=== PATIENT | female | born 1965 | race Caucasian/White ===

== ENCOUNTER → 2016-10-02 | Outpatient (CLI) | payer OTHER ==
[~2016-10-02] MED LIST: ALBU1AER9 INH; BCPILLS PO; CIPR-255 PO; ELET40TA PO; METR500T PO; MULT-506 PO; OXYC1TAB3 PO; vit D PO
--- NOTE | 2016-10-03 05:42 | PAP/PSG TECHNICIAN REPORT ---
[facility] Mechanic Driver Polysomnogram Report Study name: None Report date: 10/03/2016 Study date: 10/02/2016 Referring Physician: Patience Peterson M.D. Name: KRISTEN GUSTAFSON Interpreting Physician: Ernesto Peterson M.D. Date of : 1965 Mechanic Driver: YOMI Bueno. Sex: Female Age: 51 StudyType: PSG Weight: 271 lbs Height: 51 years, Height 4' 11" Neck Circum:17inches BMI: 54.73 Medications: No list provided Patient History Study started on room air with ETCO2 monitoring in room #8. 51 yr old female here tonight for a possible split psg. She complains about loud snoring and witnessed apnea. She has HTN and heartburn. Neck circ= 17inches. Parameters Monitored NPSG: E1-M2, E2-M1, Fp1-M2, Fp2-M1, F3-M2, F4-M2, F4-M1, C3-M2, C4-M2, C4-M1, O1-M2, O2-M2, O2-M1, T3-M2, T4-M1, P3-M2, P4-M1, CHIN1, CHIN2, HR, EKG, Legs, PFLOW, SNOR, FLOW, CFLOW, Tidal Volume, THOR, ABDO, SpO2, PLTH, CPRESS, ETCO2 Wave, ETCO2, pH Sleep Architecture Sleep Stages Time at Lights Off 10:24:04 PM STAGES Time (min.) TST (%) Time at Lights On 5:21:34 AM Wake 23.0 -- Total Recording Time (TRT) 417.50 min. N1 20.5 5 Total Sleep Period (TSP) 411.5 min. N2 266.5 68 Total Sleep Time (TST) 394.5min. N3 57.0 14 Awake Time 23.0 min. REM 50.5 13 Wake after Sleep Onset 17.0 min. Sleep Efficiency (SE) 94 % Sleep Onset Latency (JONAS) 6.0 min. Number of Stage 1 Shifts None Awakenings 12 Stage Changes 70 Number of REM periods 8 REM 50.5 13 REM Latency 111.0 min. NREM 344.0 87 Body Position Analysis Supine Right Left Side Prone Vertical Total Sleep Time (min.) 37.6 242.2 68.5 310.68 53.3 0.0 Total Sleep Time (%) 9% 61% 17% 79 13% N/A% Total Sleep Time REM (min.) 0.0 50.5 0.0 None 0.0 0.0 Total Sleep Time NREM (min.) 34.0 191.7 68.5 None 49.8 0.0 Intermittent Wake (min.) 3.6 13.9 2.0 None 3.5 0.0 Total Sleep Period (%) 9% None None None None None Arousals Myoclonus (PLM) * Events Count Index Events Count Index Spontaneous 15 2 Events Awake (PLMW) 28 73.0 Respiratory 4 0.8 Events Asleep w/ Arousal (PLMA) 3 0.5 PLM 3 0 Events Asleep w/o Arousal (PLMS) 152 23.1 Snoring 0 0 Total Asleep 155 23.6 Total 22 3 Total 183 26 Respiratory Analysis * CA OA MA CH H RERA Total Count 0 53 0 0 163 1 216 Index 0.0 8.1 0.0 0 24.8 0 33.0 Mean Duration 0.0 28.7 0.0 0.00 23.3 24.2 24.6 Longest Duration 0.0 65.6 0.0 0.00 0.0 24.2 65.6 Respiratory Event Summary Total Supine ~Supine Right Left Prone REM NREM Apneas Count 53 0 53 3 50 0 3 50 Index 8.1 0 9 0.7 43.8 0 4 9 Hypopneas (4% Desat) Count 163 67 96 65 31 0 20 143 Index 24.8 118.2 16 16.1 27.2 0.0 23.8 24.9 Apneas & All Hypopneas Count 216 67 149 68 81 0 23 193 Index 32.9 118 25 17 71 0 27.3 33.7 Respiratory Events (Chainstitch Elastic Attacher+All Hyp+RERA) Count 216 67 150 69 81 0 23 193 Index 33.0 118 25 17.1 70.9 0.0 27.3 33.8 Respiratory Related Arousal Count 4 67 5 4 1 0 3 2 Index 0.8 0 1 1 1 0 4 0 Snoring Analysis Supine Right Left Prone REM NREM Total Snore duration 5.1 min Snores count 21 183 105 3 10 302 312 Snore mean duration 1.0 Sec Snores index 37 45 92 4 11.9 52.7 47.5 TST with snoring (%) 1.3% SpO2 Analysis Total REM NREM Awake <50% 0.0 min. 0.0 min. 0.0 min. 0.0 min. 51 - 60% 0.0 min. 0.0 min. 0.0 min. 0.0 min. 61 - 70% 0.0 min. 0.0 min. 0.0 min. 0.0 min. 71 - 80% 2.8 min. 1.7 min. 0.5 min. 0.6 min. 81 - 90% 358.5 min. 45.6 min. 301.5 min. 11.4 min. 91 - 100% 55.3 min. 3.2 min. 41.6 min. 10.5 min. Average 88 86 88 90 Minimum SpO2 76 76 78 80 Desaturation Event Index 28.7 27.3 30.0 13.0 # Desat. Events below 89% 192 23 169 0 Time(%) with Saturation below 89% 53.0 9.2 42.9 0.8 Time(min.) with Saturation below 89% 220.7 38.5 178.6 3.5 Heart Rate Analysis End Tidal CO2 Analysis Min (bpm) Max (bpm) Average (bpm) TSP (mins) % of TSP Awake 56 94 76 Above 55 mmHg 0.0 0.0 NREM 51 96 68 50-55 mmHg 19.5 4.9 REM 49 89 66 45-50 mmHg 188.5 47.8 Overall 49 96 68 40-45 mmHg 94.4 23.9 35-40 mmHg 29.9 7.6 30-35 mmHg 21.2 5.4 Average ETCO2 0.1 Supplemental O2 Values Minimum O2 level: None Value Start Time End Time Mechanic Driver Comments Mrs. Gustafson slept in the right, left, supine and prone positions. No cardiac arrhythmia noted. Some leg movements noted. No bruxism noted. Snoring was noted and scored as a 2 on a scale of 1 through 5. (0=no snoring, 5=snoring loud enough to be heard through a closed door or down the lazo way). She did not use the restroom during the night. She stated that she slept about the same as usual. The final report will be interpreted and signed by a sleep physician. The completed physician report will then be placed in the patient medical record. Therapy (cm H2O) 0 TIB (min.) 417.5 TST (min.) 394.5 Sleep Onset (min.) 6.0 REM Onset From Sleep (min.) 111.0 Sleep Efficiency % 94 Wakefulness (%) 6 Wakefulness (min.) 23.0 NREM 1 (%) 5 NREM 1 (min.) 20.5 NREM 2 (%) 68 NREM 2 (min.) 266.5 NREM 3 (%) 14 NREM 3 (min.) 57.0 REM (%) 13 REM (min.) 50.5 # Arousals 22 Arousal Index 3 # Snore 312 Snore Index 47.5 AHI 32.9 AHI Supine 118 AHI Non-Supine 25 NREM AHI 33.7 REM AHI 27.3 RDI 33.0 # Obstructive Apnea 53 # Central Apnea 0 # Mixed Apnea 0 # Hypopneas 163 RERAs 1 Total Respiratory Events 218 Time Below SpO2 89% (min.) 217.1 Mean NREM SpO2 (%) 88 Mean REM SpO2 (%) 86 Mean Sleep SpO2 (%) 88 Min NREM SpO2 (%) 78 Min REM SpO2 (%) 76 Position Supine (min.) 37.6 Position Non-supine (min.) 360.5 LM Index Sleep 23.6 LM Index NREM 26.3 LM Index REM 4.8 Mean Heart Rate (bpm) 68 Min Heart Rate (bpm) 49
--- NOTE | 2016-10-09 06:48 | POLYSOMNOGRAPH REPORT ---
REFERRING PERSON: Dr. Librado Peterson. PUNCHBOARD FILLING MACHINE OPERATOR: Claudia Ahmadi. Ms. Hardy is a 51-year-old female sent for a possible split-night sleep study. She complains of loud snoring and witnessed apneas. She has a history of acid reflux and hypertension. Her [place] Sleepiness Scale score on the evening of this study is not recorded. Her BMI is 54.73. Following the technical and digital specifications of the [place] [employer] (AASM), a standard diagnostic polysomnogram was performed, monitoring EEG, EOG, EMG (chin and leg deviations), oxygen saturation, body position, digital video, respiratory effort and airflow. The sleep Stage and Event scoring was based on the AASM Manual for the Scoring of Sleep and Associated Events, 2007 edition. Apneas are defined as a drop in the peak thermal sensor excursion by >90% of baseline for at least 10 seconds. Hypopneas were scored using the 4% oxygen desaturation rule (4A-Medicare) and a decrease in the nasal pressure excursions by >30% of baseline for at least 10 seconds. Respiratory effort-related arousal (RERA) is defined as a sequence of breaths lasting at least 10 seconds characterized by increasing respiratory effort or flattening of the nasal pressure waveform leading to an arousal from sleep when the sequence of breaths does not meet criteria for an apnea or hypopnea. Apnea Hypopnea index (AHI) is defined as the number of apneas and hypopneas occurring in an hour of sleep. Respiratory disturbance index (RDI) is defined as the number of apneas, hypopneas, and RERAs occurring in an hour of sleep. Ms. Hardy's total sleep period time was 411.5 minutes. Total sleep time was 394.5 minutes. Sleep efficiency was 94%. Latency to sleep onset was 6 minutes with wake after sleep onset of 17 minutes. Total non-REM sleep time was 344 minutes. She spent 5% of that time in N1 sleep, 68% in N2 sleep, and 14% in N3 sleep. REM latency was 111 minutes. Total REM sleep time was 50.5 minutes or 13% of total sleep time. There were 22 cortical arousals from sleep. 15 of these arousals were spontaneous, 4 were due to respiratory events, and 3 were due to periodic limb movements of sleep. There were 155 periodic limb movements noted on this test. Limb movement index was 23.6. Limb movement with arousal index was 0.5. There were no central, 53 obstructive, and no mixed apneas on this test. There were 163 hypopneas and 1 RERA. Apnea-hypopnea index was elevated at 32.9, consistent with severe sleep apnea. 312 snoring events were recorded. Total sleep time with snoring was 1.3%. This patient was hypoxic most of recording time. While she was awake, her baseline oxygen saturation appeared to be around 91% but the average saturation for this study was 88%. There were desaturations with respiratory events of 76%. Saturations were less than 89 for 220.7 minutes of recording time. This is significant nocturnal hypoxemia. There was no cardiac ectopy noted on this study. Heart rates ranged from a low of 49 beats per minute to a high of 96 beats per minute on this study. End-tidal CO2 was recorded on this test. End-tidal CO2s were between 50 and 55 mmHg for 4.9% of total sleep period time, between 45 and 50 mmHg for 47.8%, between 40 and 45 mmHg for 23.9%, between 35 and 40 mmHg for 7.6% of total sleep period time, and then it was between 30 and 35 mmHg for 5.4% of total sleep period time. The remaining end-tidal CO2 data appears to be lost. IMPRESSION AND PLAN: A 51-year-old female with evidence of severe sleep apnea and severe nocturnal hypoxemia on this sleep study. This patient would likely benefit from positive airway pressure therapy and should return to sleep lab for a full night titration. Based on those results, she can be started on equipment at home and a download reviewed from her device in 1 month both to check compliance as well as AHI. CPAP titration study will also ensure that her hypoxemia resolves with CPAP alone.
== END | disposition home or self-care (01) ==
LOC: C.NEUR 21:00
PROVIDERS: ATTEND Family Medicine
DX: G47.33 Obstructive sleep apnea (adult) (pediatric) (principal); G47.36 Sleep related hypoventilation in conditions classified elsewhere

== ENCOUNTER → 2016-12-15 | Outpatient (CLI) | payer OTHER ==
--- NOTE | 2016-12-16 06:16 | PAP/PSG TECHNICIAN REPORT ---
[facility] Senior Chemist Polysomnogram Report Study name: None Report date: 12/16/2016 Study date: 12/15/2016 Referring Physician: Patience Peterson M.D. Name: KRISTEN GUSTAFSON Interpreting Physician: Ernesto Peterson M.D. Date of : 1965 Senior Chemist: Jeannie Carpenter RPS. Sex: Female Age: 51 Study Type: PSG PAP Weight: 276 lbs 17 in Height: 51 years, Height 5' 0" Neck Circum: BMI: 53.9 Medications: ATENOLOL 50 MG, RELPAX 40 MG, PROBIOTIC, HYDROCORTISONE 2.5% EX CREAM, MULTI VIT Patient History 51 yr-old female here for a new CPAP treatment study. She was found to be positive for TASNEEM with an AHI of 32. She has since then been set up with an auto CPAP machine at home. She is back to assess her pressure settings. She wears an Loida View full face mask from [employer]. The test was started on room air and 4 CMH2O. ETCO2 testing was not utilized during this study. Room 1 Parameters Monitored NPSG: E1-M2, E2-M1, Fp1-M2, Fp2-M1, F3-M2, F4-M2, F4-M1, C3-M2, C4-M2, C4-M1, O1-M2, O2-M2, O2-M1, T3-M2, T4-M1, P3-M2, P4-M1, CHIN1, CHIN2, HR, EKG, Legs, PFLOW, SNOR, FLOW, CFLOW, Tidal Volume, THOR, ABDO, SpO2, PLTH, CPRESS, ETCO2 Wave, ETCO2, pH Sleep Architecture Sleep Stages Time at Lights Off 9:59:50 PM STAGES Time (min.) TST (%) Time at Lights On 5:32:50 AM Wake 18.0 -- Total Recording Time (TRT) 453.00 min. N1 16.0 4 Total Sleep Period (TSP) 446.5 min. N2 277.5 64 Total Sleep Time (TST) 435.0min. N3 35.0 8 Awake Time 18.0 min. REM 106.5 24 Wake after Sleep Onset 11.5 min. Sleep Efficiency (SE) 96 % Sleep Onset Latency (JONAS) 6.5 min. Number of Stage 1 Shifts None Awakenings 7 Stage Changes 43 Number of REM periods 5 REM 106.5 24 REM Latency 81.0 min. NREM 328.5 76 Body Position Analysis Supine Right Left Side Prone Vertical Total Sleep Time (min.) 2.7 304.9 0.0 304.94 136.7 0.0 Total Sleep Time (%) 0% 70% 0% 70 30% N/A% Total Sleep Time REM (min.) 0.0 58.5 0.0 None 48.0 0.0 Total Sleep Time NREM (min.) 0.0 246.4 0.0 None 82.1 0.0 Intermittent Wake (min.) 2.7 8.7 0.0 None 6.6 0.0 Total Sleep Period (%) 0% None None None None None Arousals Myoclonus (PLM) * Events Count Index Events Count Index Spontaneous 15 2 Events Awake (PLMW) 16 53.3 Respiratory 5 0.7 Events Asleep w/ Arousal (PLMA) 1 0.1 PLM 1 0 Events Asleep w/o Arousal (PLMS) 65 9.0 Snoring 0 0 Total Asleep 66 9.1 Total 21 3 Total 82 11 Respiratory Analysis * CA OA MA CH H RERA Total Count 0 0 0 0 21 3 21 Index 0.0 0.0 0.0 0 2.9 0 3.3 Mean Duration 0.0 0.0 0.0 0.00 23.4 17.9 22.7 Longest Duration 0.0 0.0 0.0 0.00 0.0 21.1 46.5 Respiratory Event Summary Total Supine ~Supine Right Left Prone REM NREM Apneas Count 0 N/A 0 0 N/A 0 0 0 Index 0.0 N/A 0 0.0 N/A 0 0 0 Hypopneas (4% Desat) Count 21 N/A 21 15 N/A 6 16 5 Index 2.9 N/A 3 3.0 N/A 2.8 9.0 0.9 Apneas & All Hypopneas Count 21 N/A 21 15 N/A 6 16 5 Index 2.9 N/A 3 3 N/A 3 9.0 0.9 Respiratory Events (Water Resource Manager+All Hyp+RERA) Count 21 N/A 24 18 N/A 6 16 5 Index 3.3 N/A 3 3.5 N/A 2.8 9.0 1.5 Respiratory Related Arousal Count 5 N/A 5 5 N/A 0 1 4 Index 0.7 N/A 1 1 N/A 0 1 1 Snoring Analysis Supine Right Left Prone REM NREM Total Snore duration 11.0 min Snores count N/A 762 N/A 11 30 743 773 Snore mean duration 0.9 Sec Snores index N/A 150 N/A 5 16.9 135.7 106.6 TST with snoring (%) 2.5% Desaturation Event Summary: Minimum %SpO2 Event Count Mean/Min/Max Duration(sec.) Desaturation Index % Time In Bed > 90 23 37.9 / 9.0 / 60.0 4.0 75.5 86 - 90 5 25.2 / 15.8 / 45.8 2.7 24.4 81 - 85 0 N/A 0.0 0.1 76 - 80 0 N/A 0.0 0.0 71 - 75 0 N/A 0.0 0.0 66 - 70 0 N/A 0.0 0.0 61 - 65 0 N/A 0.0 0.0 56 - 60 0 N/A 0.0 0.0 51 - 55 0 N/A 0.0 0.0 < 50 0 N/A 0.0 0.0 Total REM NREM Awake <50% 0.0 min. 0.0 min. 0.0 min. 0.0 min. 51 - 60% 0.0 min. 0.0 min. 0.0 min. 0.0 min. 61 - 70% 0.0 min. 0.0 min. 0.0 min. 0.0 min. 71 - 80% 0.0 min. 0.0 min. 0.0 min. 0.0 min. 81 - 90% 110.8 min. 35.8 min. 74.7 min. 0.3 min. 91 - 100% 341.7 min. 70.7 min. 253.8 min. 17.2 min. Average 92 91 92 94 Minimum SpO2 83 83 87 89 Desaturation Event Index 3.3 9.6 1.3 3.3 # Desat. Events below 89% 11 11 N/A N/A Time(%) with Saturation below 89% 3.7 2.8 0.9 0.0 Time(min.) with Saturation below 89% 16.6 12.5 4.1 0.0 Time (mins) REM (mins) NREM (mins) % of TST SpO2 Below 90% 18 14 N4 11.5 SpO2 Below 88% 7 0 0 2 Heart Rate Analysis Min (bpm) Max (bpm) Average (bpm) Awake 53 91 74 NREM 48 90 60 REM 46 85 60 Overall 46 90 60 Supplemental O2 Values Minimum O2 level: None Value Start Time End Time Senior Chemist Comments Ms. Gustafson slept in the right and prone positions. No cardiac arrhythmias or PLMs noted. No bruxism noted. CPAP was initiated at +4 CMH2O and up-titrated to a level of +9 CMH2O, Cflex 2. At a pressure of 6 CMH2O however, she met requirements to start O2. She spent a total of 147.1 min on a pressure of 6 CMH2O, her AHI was 1.3, and she spent 10.2 min under an O2 saturation of 89%. One LPM of O2 was added at 3:05 am. At 4:05 am, she had more hypopneas only in REM. The O2 was then turned off and CPAP titration continued. An Loida View full face mask from [employer] was used during titration She did not wake up to use the restroom during the night. Ms. Gustafson stated that she slept ok. The final report will be interpreted and signed by a sleep physician. The completed physician report will then be placed in the patient medical record. Therapy Event: Therapy (cm H20) 4 5 6 8 9 Total Time at Pressure (min.) 78.9 76.1 211.4 20.4 66.3 TST at Pressure (min.) 70.9 71.1 206.9 20.4 65.8 # Periods 1 1 1 1 1 Sleep Onset (min.) 6.5 0.0 0.0 0.0 0.0 REM Onset (min.) N/A 8.6 29.6 0.0 47.8 Sleep Efficiency % 89 93 97 100 99 Wakefulness (%) 10.1 6.6 2.1 0.0 0.8 Wakefulness (min.) 8.0 5.0 4.5 0.0 0.5 NREM 1 (%) 5.7 5.9 2.6 0.0 2.3 NREM 1 (min.) 4.5 4.5 5.5 0.0 1.5 NREM 2 (%) 74.6 48.1 62.9 15.7 69.1 NREM 2 (min.) 58.9 36.6 133.0 3.2 45.8 NREM 3 (%) 9.5 12.4 8.5 0.0 0.0 NREM 3 (min.) 7.5 9.4 18.1 0.0 0.0 REM (%) 0.0 26.9 23.8 84.3 27.9 REM (min.) 0.0 20.5 50.3 17.2 18.5 # Arousals 9 2 5 2 3 Arousal Index 7.6 1.7 1.5 5.9 2.7 # Snore 365 295 89 9 15 Snore Index 309.0 249.1 25.8 26.5 13.7 AHI 0.0 4.2 2.9 17.6 0.0 AHI Supine N/A N/A N/A N/A N/A AHI Non-Supine 0.0 4.2 2.9 17.6 0.0 NREM AHI 0.0 0.0 1.9 0.0 0.0 REM AHI N/A 14.6 6.0 20.9 0.0 RDI 1.7 4.2 3.2 17.6 0.0 # Obstructive 0 0 0 0 0 # Central Ap 0 0 0 0 0 # Mixed 0 0 0 0 0 # Hypopneas 0 5 10 6 0 RERAS 2 0 1 0 0 Total Respiratory Events 2 5 11 6 0 Time Below SpO2 89.00% (min.) 0.0 3.9 11.8 0.9 0.0 Mean NREM SpO2 (%) 92 90 92 93 93 Mean REM SpO2 (%) N/A 90 90 92 93 Mean Sleep SpO2 (%) 92 90 92 92 93 Min NREM SpO2 (%) 89 87 87 91 91 Min REM SpO2 (%) N/A 85 83 88 90 Position Supine (min.) 0.0 0.0 0.0 0.0 0.0 Position Non-supine (min.) 70.9 71.1 206.9 20.4 65.8 LM Index Sleep 5.9 16.9 7.5 17.6 6.4 LM Index NREM 5.9 5.9 4.2 0.0 6.3 LM Index REM N/A 43.9 17.9 20.9 6.5 Mean Heart Rate (bpm) 64 66 59 55 56 Min Heart Rate (bpm) 55 56 46 46 48 CPAP REPORT Therapy Detail Time / Page # Comment CPAP 4 cm H2O Full Face Mask Flex Pressure Relief Humidifier on 9:57:36 PM / pg. 126 CPAP 5 cm H2O Full Face Mask Flex Pressure Relief Humidifier on 11:18:43 PM / pg. 288 INCREASED FOR SOME SNORING AND RERAS CPAP 6 cm H2O Full Face Mask Flex Pressure Relief Humidifier on 12:34:47 AM / pg. 440 INCREASED FOR HYPOPNEAS IN REM CPAP 6 cm H2O Full Face Mask Flex Pressure Relief Humidifier on Oxygen 1.0 lpm 3:05:56 AM / pg. 743 SHE HAS BEEN ON A PRESSURE OF 6 FOR OVER 2 HOURS AND HER AHI IS 1.3. SHE HAS SPENT 10.2 MIN UNDER A SATURATION OF 89% CPAP 8 cm H2O Full Face Mask Flex Pressure Relief Humidifier on Oxygen 1.0 lpm 4:06:08 AM / pg. 863 INCREASED FOR HYPOPNEAS IN REM AGAIN. GOING TO SHUT OFF THE O2 AT THIS TIME SINCE PRESSURE WAS INCREASED CPAP 8 cm H2O Full Face Mask Flex Pressure Relief Humidifier on 4:06:43 AM / pg. 864 GOING TO SHUT OFF THE O2 AT THIS TIME SINCE PRESSURE WAS INCREASED CPAP 9 cm H2O Full Face Mask Flex Pressure Relief Humidifier on 4:26:33 AM / pg. 904 INCREASED AGAIN FOR EVENTS ONLY IN REM
--- NOTE | 2016-12-28 21:41 | POLYSOMNOGRAPH REPORT ---
REFERRING PERSON: Dr. Librado Peterson. EDGE BONDER: Jeannie Carpenter. Ms. Hardy is a 51-year-old female sent for CPAP titration study. She was found to have an AHI of 32. She has been using an auto-titrating CPAP at home into the Loida View full facemask by [employer]. She is here to ensure adequate pressure and resolution of hypoxemia. Following the technical and digital specifications of the [place] [employer] (AASM) a standard diagnostic polysomnogram was performed monitoring EEG, EOG, EMG (chin and leg deviations), oxygen saturation, body position, digital video, respiratory effort and airflow. The sleep Stage and event scoring was based on the AASM Manual for the Scoring of Sleep and Associated Events 2007 edition. Apneas are defined as a drop in the peak thermal sensor excursion by >90% of baseline for at least 10 seconds. Hypopneas were scored using the 4% oxygen desaturation rule (4A-Medicare) and a decrease in the nasal pressure excursions by >30% of baseline for at least 10 seconds. Respiratory effort-related arousal (RERA's) is defined as a sequence of breaths lasting at least 10 seconds characterized by increasing respiratory effort or flattening of the nasal pressure waveform leading to an arousal from sleep when the sequence of breaths does not meet criteria for an apnea or hypopnea. Apnea Hypopnea index (AHI) is defined as the number of apneas and hypopneas occurring in an hour of sleep. Respiratory disturbance index (RDI) is defined as the number of apneas, hypopneas, and RERA's occurring in an hour of sleep. Ms. Hardy's total sleep period time was 446.5 minutes. Total sleep time was 435 minutes. Sleep efficiency was 96%. Latency to sleep onset was 6.5 minutes. Wake after sleep onset was 11.5 minutes. Total non-REM sleep time was 328.5 minutes. She spent 4% of that time in N1 sleep, 64% in N2 sleep, and 8% in N3 sleep. REM latency was 81 minutes with total REM sleep time of 106.5 minutes or 24% of total sleep time. There were 21 cortical arousals from sleep. Fifteen of these arousals were spontaneous, 5 were due to respiratory events. There were 66 periodic limb movements. Limb movement index was 9.1. Limb movement with arousal index was 0.1. There were no central obstructive or mixed apneas on this test. There were 21 hypopnea and 3 RERA. Apnea-hypopnea index was normal at 2.9. There were 773 snoring events recorded. Total sleep time with snoring was 2.5%. Mean saturation was 92% with desaturations to 83%. Saturations were less than 89 for 16.6 minutes of recorded time. There was no cardiac ectopy noted on this study. Heart rates ranged from a low of 46 beats per minute to a high of 90 beats per minute during the night. As stated above, this was a CPAP titration study. Ms. Hardy was titrated from a CPAP pressure of 4 to a CPAP pressure of 9 over the course of the night. Increasing pressures were needed to prevent apneas, hypopneas and arousals. She was observed on a pressure of 9 for 65.8 minutes of recording time. 18.5 of those minutes were spent in non-supine REM sleep. AHI and RDI on this pressure were both 0 with no desaturations less than 89%. Ms. Hardy spent 147.1 minutes on a pressure of 6 and her AHI at that time was 1.3. Her saturations were less than 89 for 10 minutes, 10.2 minutes of recorded time on that pressure. Therefore, at 3:05 a.m., 1 liter of oxygen was started. At 4:05 a.m., this patient started to have some hypopnea events and REM. The oxygen was stopped and titration was continued. IMPRESSION AND PLAN: Successful CPAP titration study in this patient with known sleep apnea. Her hypoxemia as well as apnea appears to resolve at a pressure of 9. I would set her home device to a pressure of 9 and review a download in 1 month, both to check compliance as well as AHI.
== END | disposition home or self-care (01) ==
LOC: C.NEUR 20:00
PROVIDERS: ATTEND Family Medicine
DX: G47.33 Obstructive sleep apnea (adult) (pediatric) (principal); G47.34 Idiopathic sleep related nonobstructive alveolar hypoventilation

== ENCOUNTER → 2017-09-13 | Outpatient (CLI) | payer OTHER ==
[~2017-09-13] MED LIST changes: -ALBU1AER9 INH; -BCPILLS PO; -CIPR-255 PO; -ELET40TA PO; -METR500T PO; -MULT-506 PO; +OPTIRAY 320 IV; -OXYC1TAB3 PO; -vit D PO
== END | disposition home or self-care (01) ==
LOC: C.CTS 13:04
DX: R10.32 Left lower quadrant pain (principal)

== ENCOUNTER 2018-12-12 17:04 | Inpatient (IN) ==
[2018-12-12] MEDS ORDERED: SODIUM CHLORIDE 0.9% 1000ML 1,000 ML IV SCH (17:15)
[2018-12-12] MEDS ORDERED: ONDANSETRON INJ 2 MG/ML 2 ML VIAL IV STA (17:18)
[2018-12-12] MEDS ORDERED: MoRPHine SULFATE 10 MG/ML CARP/VIAL IV STA (17:18)
[2018-12-12 17:46] LABS: Basophils # (auto) 0.03 K/uL (0-0.2); Basophils % (auto) 0.4 %; Eosinophils # (auto) 0.17 K/uL (0-0.5); Eosinophils % (auto) 2.4 %; Hematocrit (blood only) 42.8 % (37-47); Hemoglobin 15.1 g/dL (12.0-16.0); Immature Granulocytes # (auto) 0.02 K/uL (0.00-0.02); Immature Granulocytes % (auto) 0.3 %; Lymphocytes # (auto) 2.59 K/uL (1.2-3.4); Mean Corpuscular Hgb Conc 35.3 g/dL (32-36); Mean Corpuscular Volume 82.5 fL (80-100); Mean Platelet Volume 9.6 fL (7.4-10.4); Monocytes # (auto) 0.44 K/uL (0.11-0.59); Monocytes % (auto) 6.1 %; Neutrophils # (auto) 3.95 K/uL (1.4-6.5); Neutrophils % (auto) 54.8 %; Platelet Count 352 K/uL (130-400); RDW Coefficient of Variation 13.9 % (11.5-14.5); RDW Standard Deviation 41.9 fL (36.4-46.3); Red Blood Count 5.19 M/uL (4.2-5.4)
[2018-12-12 18:14] LABS: Alanine Aminotransferase 24 U/L (12-78); Albumin Level 3.5 gm/dl (3.4-5.0); Aspartate Aminotransferase 17 U/L (15-37); BUN Creatinine Ratio 18.1 (10-20); Blood Urea Nitrogen 15 mg/dl (7-18); Calcium 9.2 mg/dl (8.5-10.1); Carbon Dioxide 23 mmol/L (21-32); Chloride 106 mmol/L (98-107); Creatinine Clr Calc Pharmacy 96.2 ml/min; Est GFR (African American) 94.6; Est GFR (Non-African American) 81.6; Glucose 104 mg/dl (70-99); Sodium 138 mmol/L (136-145)
[2018-12-12] MEDS ORDERED: HYDROmorphone INJ 0.5 MG/0.5 ML SYR IV STA (18:14)
[2018-12-12 18:17] LABS: Pregnancy Test, Serum Negative (Negative)
[2018-12-12 18:29] LABS: Albumin Globulin Ratio 0.7 (0.9-2); Alkaline Phosphatase 81 U/L (45-117); Bilirubin,Total 0.2 mg/dl (0.2-1); Globulin 4.7 gm/dl (2.5-4.0); Total Protein 8.2 gm/dl (6.4-8.2); Troponin I < 0.015 ng/ml (0-0.045)
[2018-12-12] MEDS ORDERED: IOVERSOL 100ml IV PRN (18:40)
--- NOTE | 2018-12-12 18:57 | CT Scan Report ---
CT abd pelvis IV con only CLINICAL HISTORY: Right lower quadrant abdominal pain NAUSEA, HISTORY OF DIVERTICULITIS. COMPARISON STUDY: September 13, 2017 TECHNIQUE: The patient was scanned in a dynamic helical fashion during intravenous administration of 94 cc of Optiray 320. A dose lowering technique was utilized adhering to the principles of ALARA. CT DOSE: 1676.93 mGy.cm FINDINGS: Lower chest: There are dependent atelectatic changes. Liver: The contrast-enhanced liver is normal in size, contour, and attenuation. There is no intrahepa tic biliary ductal dilatation. The hepatic veins and portal veins are patent. Gallbladder: Surgically absent Spleen: Normal in size and attenuation. Pancreas: Unremarkable. Adrenal glands: Unremarkable. Kidneys: There is symmetric renal cortical enhancement. The kidneys are normal in size without hydron ephrosis. Bowel: There are no transition zone to indicate bowel obstruction. There are no findings to indicate acute appendicitis. There is acute diverticulitis involving the descending sigmoid junction. There ar e few tiny extraluminal air bubbles suggesting a microperforation. There are no fluid collections to indicate a drainable diverticular abscess. Peritoneum: No free air is visualized. There are few extraluminal gas bubbles adjacent to the above-d escribed diverticulitis. There is a small amount of free pelvic fluid Vasculature: The abdominal aorta is normal in course and caliber. Adenopathy: None. Pelvic viscera: There is slight interval enlargement of a 37 mm right ovarian cyst. Skeletal structures: No destructive osseous lesions are seen. IMPRESSION: 1. Acute diverticulitis at the descending sigmoid junction with suspected microperforation. There are no fluid collections to indicate a drainable abscess 2. Enlarging 37 mm right ovarian cyst 3. No evidence of bowel obstruction. Electronically signed by: Leno Renee M.D. 12/12/2018 6:55 PM
[2018-12-12] MEDS ORDERED: metroNIDAZOLE 500 MG/100 ML BAG IV STA (19:15)
[2018-12-12] MEDS ORDERED: CIPROFLOXACIN 400 MG/200 ML BAG IV STA (19:15)
--- NOTE | 2018-12-12 19:32 | Emergency Department Note ---
Entered by Destiney Boggs acting as a scribe for Puneet Hester M.D. History of Present Illness General Chief complaint: Abdominal Pain Stated complaint: EXTREME LOWER ABDOMINAL PAIN Source: patient History of Present Illness Onset (ago): hour(s) (1500 today) Location: abdomen Severity: similar to prior episodes (diverticulitis) Maximum Pain Intensity: 8 Quality: + other (abdominal pain) Associated symptoms: + other (Positive nausea. Negative vomiting, recent trauma. ); no fever/chills The patient is a 53 year old female who presents to the Emergency Room with complaints of sudden abdominal pain beginning at 1500. She reports her pain came on sudden and it is severe in nature. She has nausea but denies any vomiting. She states she had diverticulitis 3 years ago and this feels similar. Pt denies any fevers, chills, recent trauma. Pt has a hx of a cholecystectomy. Home Medications Home Medications Medication Instructions Recorded Confirmed Type atenolol 25 mg PO BID 12/12/18 12/12/18 History lactobacillus combination no.4 3,000 mmu cells PO DAILY 12/12/18 12/12/18 History [Probiotic] multivitamin 1 tab PO DAILY 12/12/18 12/12/18 History Allergies Allergy/AdvReac Type Severity Reaction Status Date / Time Penicillins Allergy Intermediate HIVES Verified 12/12/18 18:03 Sulfa (Sulfonamide Allergy Intermediate HIVES Verified 12/12/18 18:03 Antibiotics) shellfish derived Allergy Mild Verified 12/12/18 18:03 sumatriptan AdvReac Intermediate HALLUCINATI Verified 12/12/18 18:03 ONS Past Med/Surg History Medical History Diverticulitis (Acute) Diverticulitis (Acute) Nausea, vomiting, and diarrhea (Acute) Vomiting (Acute) Surgical History S/P cholecystectomy (Resolved) Previous section (Resolved) S/P tubal ligation (Resolved) Previous section (Resolved) Family History Other No pertinent family history Social History current occupational status: employed Feels Safe at Home: Yes Smoking Status: Never smoker Review of Systems See HPI for pertinent positives & negatives. and A total of 10 systems reviewed and were otherwise negative Physical Exam Vital Signs Vital Signs - 24 hr 12/12/18 17:14 12/12/18 17:45 12/12/18 19:13 Temperature 36.8 C Temperature Source Oral Sepsis Recent Fever Within 48 Hours No Sepsis Action Taken by Nursing No Action Required Pulse Rate 71 66 Pulse Rate [Finger] Respiratory Rate 22 Blood Pressure 177/102 H Blood Pressure Mean 127 Blood Pressure Position Sitting Pulse Oximetry 95 96 86 L Oxygen Delivery Method Room Air Room Air Nasal Cannula Oxygen Flow Rate 0 12/12/18 19:27 Temperature Temperature Source Sepsis Recent Fever Within 48 Hours Sepsis Action Taken by Nursing Pulse Rate Pulse Rate [Finger] 89 Respiratory Rate 18 Blood Pressure Blood Pressure Mean Blood Pressure Position Pulse Oximetry 96 Oxygen Delivery Method Nasal Cannula Oxygen Flow Rate 4 GENERAL: Awake, alert, well-appearing, tearful, bent over in pain. HENT: Normocephalic, atraumatic. EYES: Normal conjunctiva. Sclera non-icteric. NECK: Supple. No nuchal rigidity. RESPIRATORY: Clear to auscultation. Normal respiratory effort. CARDIAC: Normal rate. Normal rhythm. Extremities warm and well perfused. GI: Soft, non-distended. Significant LLQ tenderness to palpation. Guarding. No masses. RECTAL: Deferred. MUSCULOSKELETAL: Atraumatic. Chest examination reveals no tenderness. There is no CVA tenderness to palpation. LOWER EXTREMITIES: Calves are equal size bilaterally and non-tender. No edema NEURO: Normal sensorium. No sensory or motor deficits noted. No facial droop. SKIN: Warm and dry. No rash or jaundice noted. Course 1719: The patient was evaluated in room C6, and a complete history and physical examination were performed. 1916: I reviewed the patient's case with Dr. Sinclair, General Surgery. He will come see the patient. 1924: I reviewed the patient's case with Dr. Amezcua [facility]. He will evaluate the patient for further management. Consultations Consultation #1: I reviewed the patient's case with Dr. Sinclair, General Surgery. He will come see the patient. Time: 19:17 Consultation #2: I reviewed the patient's case with Dr. Amezcua [facility]. He will evaluate the patient for further management. Time: 19:25 Administered Medications Ciprofloxacin (Cipro) 400 mg in 200 mls @ 200 mls/hr IV NOW STA Stop: 12/12/18 20:14 Last Admin: 12/12/18 19:26 Dose: 200 mls/hr Documented by: [id number] Ioversol (Optiray 320 100ml) 94 ml IV ONCE PRN PRN Reason: Interaction Checking Stop: 12/16/18 18:39 Last Admin: 12/12/18 18:41 Dose: 94 ml Documented by: [id number] Discontinued Medications Hydromorphone HCl (Dilaudid) 0.5 mg IV NOW STA Stop: 12/12/18 18:15 Last Admin: 12/12/18 18:20 Dose: 0.5 mg Documented by: [id number] Sodium Chloride (Nss 1000ml) 1,000 mls @ 999 mls/hr IV .Q1H1M DEBBIE Stop: 12/12/18 18:15 Last Infusion: 12/12/18 18:50 Dose: 0 mls/hr Documented by: [id number] Admin: 12/12/18 17:36 Dose: 999 mls/hr Documented by: [id number] Morphine Sulfate (Morphine Sulfate) 6 mg IV NOW STA Stop: 12/12/18 17:19 Last Admin: 12/12/18 17:36 Dose: 6 mg Documented by: [id number] Ondansetron HCl (Zofran) 4 mg IV NOW STA Stop: 12/12/18 17:19 Last Admin: 12/12/18 17:36 Dose: 4 mg Documented by: [id number] Medical Decision Making Differential Diagnosis Differential diagnosis: Etiologies such as appendicitis, diverticulitis, PUD, biliary pathology, UTI, pancreatitis, obstruction, mesenteric ischemia, aortic pathology, infections, inflammatory bowel disease, renal colic, as well as others were entertained. Home Medications Current Medication List: was personally reviewed by me Laboratory Data Attestation: I reviewed the patient's lab results. Result diagrams: 12/12/18 17:34 12/12/18 17:34 Lab Results 12/12/18 12/12/18 12/12/18 Range/Units 17:34 17:34 17:34 WBC 7.20 (4.8-10.8) K/uL RBC 5.19 (4.2-5.4) M/uL Hgb 15.1 (12.0-16.0) g/dL Hct 42.8 (37-47) % MCV 82.5 (80-100) fL MCH 29.1 (25-34) pg MCHC 35.3 (32-36) g/dL RDW Std Deviation 41.9 (36.4-46.3) fL RDW Coeff of Barak 13.9 (11.5-14.5) % Plt Count 352 (130-400) K/uL MPV 9.6 (7.4-10.4) fL Immature Gran % (Auto) 0.3 % Neut % (Auto) 54.8 % Lymph % (Auto) 36.0 % [place]arnett % (Auto) 6.1 % Eos % (Auto) 2.4 % Baso % (Auto) 0.4 % Immature Gran # (Auto) 0.02 (0.00-0.02) K/uL Neut # (Auto) 3.95 (1.4-6.5) K/uL Lymph # (Auto) 2.59 (1.2-3.4) K/uL [place]ett # (Auto) 0.44 (0.11-0.59) K/uL Eos # (Auto) 0.17 (0-0.5) K/uL Baso # (Auto) 0.03 (0-0.2) K/uL Sodium 138 (136-145) mmol/L Potassium 4.0 (3.5-5.1) mmol/L Chloride 106 (98-107) mmol/L Carbon Dioxide 23 (21-32) mmol/L Anion Gap 9.0 (3-11) BUN 15 (7-18) mg/dl Creatinine 0.83 (0.6-1.2) mg/dl Est Cr Clr Drug Dosing 96.2 ml/min Est GFR ( Amer) 94.6 Est GFR (Non-Af Amer) 81.6 BUN/Creatinine Ratio 18.1 (10-20) Glucose 104 H (70-99) mg/dl Calcium 9.2 (8.5-10.1) mg/dl Total Bilirubin 0.2 (0.2-1) mg/dl AST 17 (15-37) U/L ALT 24 (12-78) U/L Alkaline Phosphatase 81 (45-117) U/L Troponin I < 0.015 (0-0.045) ng/ml Total Protein 8.2 (6.4-8.2) gm/dl Albumin 3.5 (3.4-5.0) gm/dl Globulin 4.7 H (2.5-4.0) gm/dl Albumin/Globulin Ratio 0.7 L (0.9-2) Lipase 132 (73-393) U/L HCG, Qual Negative (Negative) Imaging Data Radiologist's Impression: Radiology results as stated below per my review and the radiologist's interpretation: CT abd pelvis IV con only CLINICAL HISTORY: Right lower quadrant abdominal pain NAUSEA, HISTORY OF DIVERTICULITIS. COMPARISON STUDY: September 13, 2017 TECHNIQUE: The patient was scanned in a dynamic helical fashion during intravenous administration of 94 cc of Optiray 320. A dose lowering technique was utilized adhering to the principles of ALARA. CT DOSE: 1676.93 mGy.cm FINDINGS: Lower chest: There are dependent atelectatic changes. Liver: The contrast-enhanced liver is normal in size, contour, and attenuation. There is no intrahepatic biliary ductal dilatation. The hepatic veins and portal veins are patent. Gallbladder: Surgically absent Spleen: Normal in size and attenuation. Pancreas: Unremarkable. Adrenal glands: Unremarkable. Kidneys: There is symmetric renal cortical enhancement. The kidneys are normal in size without hydronephrosis. Bowel: There are no transition zone to indicate bowel obstruction. There are no findings to indicate acute appendicitis. There is acute diverticulitis involving the descending sigmoid junction. There are few tiny extraluminal air bubbles suggesting a microperforation. There are no fluid collections to indicate a drainable diverticular abscess. Peritoneum: No free air is visualized. There are few extraluminal gas bubbles adjacent to the above-described diverticulitis. There is a small amount of free pelvic fluid Vasculature: The abdominal aorta is normal in course and caliber. Adenopathy: None. Pelvic viscera: There is slight interval enlargement of a 37 mm right ovarian cyst. Skeletal structures: No destructive osseous lesions are seen. IMPRESSION: 1. Acute diverticulitis at the descending sigmoid junction with suspected microperforation. There are no fluid collections to indicate a drainable abscess 2. Enlarging 37 mm right ovarian cyst 3. No evidence of bowel obstruction. Electronically signed by: Leno Renee M.D. 12/12/2018 6:55 PM ECG Data Attestation: I personally reviewed and interpreted this ECG as follows: Indication: abdominal pain Rate (beats per minute): 69 Rhythm: normal sinus Findings: + other (normal intervals ); no PVC, no ST depression and no ST elevation Blood Pressure Blood Pressure Findings: Elevated blood pressure Blood Pressure Disposition: elevated BP felt to be situational MDM Narrative Patient is a 53-year-old female history of prior cholecystectomy, prior section, and prior episodes of diverticulitis presenting today complaining of abdominal pain. Sudden onset today with severe left lower abdominal pain. Constant in nature. Denies trauma or fever. Pain came on around 3 PM. States that today's symptoms do feel like her similar episode of diverticulitis. Firm bowel movement earlier today but no diarrhea or blood noted. Nausea but no vomiting. Denies fever. Patient's laboratory studies here are likely without significant abnormality. No significant leukocytosis or evidence of electrolyte abnormality kidney dysfunction. Negative troponin. EKG is unremarkable and doubt this is cardiac. No evidence of , pancreatitis, or hepatitis. CT abdomen pelvis was completed given herlevel of pain here. CT does show significant every diverticulitis in the ascending colon. Questionable small microperforation. After pain medicine here patient is much more comfortable although slightly hypoxic at times now requiring oxygen. Again I believe this is secondary to the pain medicine and nothing else organic. Given the microperforation discussed with surgery briefly. Given Cipro and Flagyl given allergy profile and discussed with the hospitalist for admission. Impression & Plan Diverticulitis of intestine with perforation without abscess Discharge Plan Visit Data Chief Complaint: Abdominal Pain Stated Complaint: EXTREME LOWER ABDOMINAL PAIN ED Provider: Puneet Hester Discharge Problem: Diverticulitis of intestine with perforation without abscess Patient Disposition: Being Evaluated by Hospitalist Forms Stand Alone Forms: Call Back Authorization, [facility] Prescriptions Prescriptions: No Action atenolol 25 mg tablet 25 mg PO BID RF: 0 multivitamin Tablet 1 tab PO DAILY RF: 0 Probiotic 3 billion cell Capsule 3,000 mmu cells PO DAILY RF: 0 Referrals Referrals: Desirae Rivera DO [Primary Care Provider] - Discharge Problem: Diverticulitis of intestine with perforation without abscess Qualifiers: Diverticulitis site: large intestine Diverticulitis bleeding: without bleeding Qualified Code(s): K57.20 - Diverticulitis of large intestine with perforation and abscess without bleeding The scribe's documentation has been prepared under my direction and personally reviewed by me in its entirety. I confirm that the note above accurately reflects all work, treatment, procedures, and medical decision making performed by me.
--- NOTE | 2018-12-12 19:54 | XRay Report ---
XR chest 1V portable CLINICAL HISTORY: Hypoxia COMPARISON STUDY: 10/03/2013 FINDINGS: The heart is at the upper limits of normal in size. There is slight elevation interstitium suggesting mild pulmonary vascular congestion/fluid overload. There are by basilar opacities statisti earnestine atelectatic although an infectious/inflammatory process could appear similar. There are no sign ificant pleural effusions[ IMPRESSION: 1. Suspected mild pulmonary vascular congestion/fluid overload 2. Bibasilar interstitial opacities, statistically atelectatic Electronically signed by: Leno Renee M.D. 12/12/2018 7:53 PM
[2018-12-12] MEDS ORDERED: PROMETHAZINE HCL 12.5 MG in SODIUM CHLORIDE 0.9% 50 ML IV STA (19:58)
[2018-12-12] MEDS ORDERED: METOPROLOL TARTRATE 1 MG/ML VIAL IV STA (20:16)
[2018-12-12] MEDS ORDERED: CEFEPIME 2,000 MG in SYRINGE 7.5 ML IV STA (20:17)
[2018-12-12 20:21] LABS: Appearance Urine Clear (Clear); Bilirubin Urine Negative (Negative); Blood Urine Negative (Negative); Color Urine Yellow; Glucose Urine UA Negative (Negative); Ketones Urine Negative (Negative); Leukocyte Esterase Urine Negative (Negative); Nitrite Urine Negative (Negative); Protein Urine Negative (Negative); Specific Gravity Urine > 1.045 (1.000-1.030); Urobilinogen Urine Negative (Negative)
[2018-12-12] MEDS ORDERED: PROMETHAZINE HCL INJ 25 MG/ML 1 ML VIAL ONE (20:30)
--- NOTE | 2018-12-12 20:43 | Surgery Consultation ---
Date of Consultation December 12, 2018 Assessment & Plan (1) Diverticulitis: Patient will be admitted to the hospital for IV antibiotics and bowel rest. We will give her only ice for 4 to 48 hours. I do feel she will need at least 4 to 5 days of IV antibiotic possibly longer. With the patient morbid obesity if she does develop complication requiring abscess drainage or aggressive surgery may consider her to a tertiary care center. She is a very high risk for postoperative complicationS. I do think she is stable at the present time and can be managed medically. History of Present Illness History of Present Illness I was asked to see the patient in the emergency room with acute abdominal pain. Work-up included a CAT scan showing sigmoid diverticulitis with possible contained perforation dictated by very small air bubbles. Patient apparently has had diverticulitis in the past. She is being admitted for bowel rest and IV antibiotic. Allergies Allergy/AdvReac Type Severity Reaction Status Date / Time Penicillins Allergy Intermediate HIVES Verified 12/12/18 18:03 Sulfa (Sulfonamide Allergy Intermediate HIVES Verified 12/12/18 18:03 Antibiotics) shellfish derived Allergy Mild Verified 12/12/18 18:03 sumatriptan AdvReac Intermediate HALLUCINATI Verified 12/12/18 18:03 ONS Home Medications Home Medications Medication Instructions Recorded Confirmed Type atenolol 25 mg PO BID 12/12/18 12/12/18 History lactobacillus combination no.4 3,000 mmu cells PO DAILY 12/12/18 12/12/18 History [Probiotic] multivitamin 1 tab PO DAILY 12/12/18 12/12/18 History Patient History Medical History Diverticulitis (Acute) Diverticulitis (Acute) Nausea, vomiting, and diarrhea (Acute) Vomiting (Acute) Surgical History S/P cholecystectomy (Resolved) Previous section (Resolved) S/P tubal ligation (Resolved) Previous section (Resolved) Family History Other No pertinent family history Social History current occupational status: employed Feels Safe at Home: Yes Smoking Status: Never smoker Review of Systems Review of Systems: See HPI for positive review of systems otherwise negative Physical Exam Physical Exam: Patient is in her hospital bed in no distress her vital signs are stable. Her sclera are anicteric neck is supple shows no signs of respiratory distress. Heart shows regular rate and rhythm her abdomen is very protrude and does have left-sided abdominal tenderness. Patient is morbidly obese. Her skin is warm and dry and her extremities are well-perfused. Results & Data Vital Signs (Past 12 Hours) Vital Signs Temp Pulse Pulse Resp BP Pulse Ox 12/12/18 19:27 89 18 96 12/12/18 19:13 86 L 12/12/18 17:45 66 96 12/12/18 17:14 36.8 C 71 22 177/102 H 95 I have reviewed her CAT scan
[2018-12-12] MEDS ORDERED: KETOROLAC 30 MG/ML VIAL IV ONE (21:11)
[2018-12-12 21:58] LABS: Pregnancy Test, Urine Negative (Negative)
[2018-12-12] MEDS ORDERED: XOPENEX/ATROVENT 1.25mg/0.5MG NEB COMBO NEB STA (22:24)
[2018-12-12] MEDS ORDERED: ACETAMINOPHEN 325 MG TAB PO PRN (22:24)
[2018-12-12] MEDS ORDERED: LORazepam 0.25 MG/0.5 ML VIAL IV PRN (22:24)
[2018-12-12] MEDS ORDERED: HYDROmorphone INJ 0.5 MG/0.5 ML SYR IV PRN (22:24)
[2018-12-12] MEDS ORDERED: IPRATROPIUM BROMIDE NEB SOLN 0.02% 2.5 ML VIAL INH STA (22:32)
[2018-12-12] MEDS ORDERED: LEVALBUTEROL 1.25MG/0.5ML NEB INH STA (22:33)
[2018-12-12 22:59] LABS: Prothrombin Time 10.6 Seconds (9.0-12.0)
[2018-12-12] MEDS ORDERED: FUROSEMIDE 20 MG in SYRINGE 0 ML IV SCH (23:15)
[2018-12-13] MEDS: OXYCODONE/ACETAMINOPHEN 5mg/325mg TAB PO PRN ×2 (00:06→04:07)
[2018-12-13] MEDS: ATENOLOL 25 MG TABLET PO SCH ×3 (00:49→21:08)
[2018-12-13] MEDS: CEFEPIME 2,000 MG in SYRINGE 7.5 ML IV SCH ×3 (03:45→21:08)
[2018-12-13] MEDS: metroNIDAZOLE 500 MG/100 ML BAG IV SCH ×3 (03:45→21:08)
--- NOTE | 2018-12-13 06:07 | History & Physical Report ---
Date of Service December 12, 2018 Assessment & Plan (1) Diverticulitis: Complicated diverticulitis Recurrent problem No sepsis Hypoxemia Pulmonary congestion on x-ray ? Fluid overload ? Right-sided CHF, patient endorses symptoms of unquantified weight gain, exertional S OB symptoms at home (Inpatient weight however jives with outpatient recorded body weights in the last 3 years.) prediabetes as per records, hemoglobin A1c of 6 from May 2018 Medical telemetry for hypoxemia ?Possible CHF Supplemental O2 TTE RE fluid retention rule out CHF Bowel rest careful IV hydration given possible CHF IV Ceftazidime, Flagyl for complicated diverticulitis Surgery consult RE complicated diverticulitis (Patient already seen by Dr. Sinclair at the emergency room.) DVT prophylaxis. Lovenox subcu Full code History of Present Illness Chief Complaint: Abdominal pain Primary Care Provider: Desirae Rivera, DO History obtained from patient and records. Medical history significant for recurrent diverticulitis, TASNEEM on CPAP, migraine. Patient has had recurrent bouts of diverticulitis, most of which have been treated outpatient. Today patient had sudden onset lower abdominal pain achy, similar to diverticulitis pain accompanied by nausea, no fever, no chills. Good BM. Transient hypoxemia noted at the ER. Patient denies chest pain, S OB. Admits to some exertional shortness of breath, fluid retention symptoms at home. 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 Allergies Allergy/AdvReac Type Severity Reaction Status Date / Time Penicillins Allergy Intermediate HIVES Verified 12/12/18 18:03 Sulfa (Sulfonamide Allergy Intermediate HIVES Verified 12/12/18 18:03 Antibiotics) shellfish derived Allergy Mild Verified 12/12/18 18:03 sumatriptan AdvReac Intermediate HALLUCINATI Verified 12/12/18 18:03 ONS Home Medications Home Medications Medication Instructions Recorded Confirmed Type atenolol 25 mg PO BID 12/12/18 12/12/18 History lactobacillus combination no.4 3,000 mmu cells PO DAILY 12/12/18 12/12/18 History [Probiotic] multivitamin 1 tab PO DAILY 04/18/19 04/18/19 History eletriptan 40 mg PO DAILY PRN 12/14/18 12/14/18 History Past Med/Surg History Medical History Diverticulitis (Acute) Diverticulitis (Acute) Nausea, vomiting, and diarrhea (Acute) Vomiting (Acute) Surgical History S/P cholecystectomy (Resolved) Previous section (Resolved) S/P tubal ligation (Resolved) Previous section (Resolved) Family History Other No pertinent family history Social History Preferred Language: Tristanian Communication Ability: Effective Internal Grinder Tender Required: No Beliefs That Will Affect Care: None Current Living Situation: Spouse current occupational status: employed Other Information That Helps Us Care for You: No Feels Safe at Home: Yes Safety Concerns: Feels Safe At This Time Smoking Status: Never smoker Hx Alcohol Use: No Hx Substance Use: No Review of Systems Review of Systems: As per HPI, all 10 systems reviewed, all other ROS negative Physical Exam Physical Exam: GENERAL: uncomfortable, obese, no respiratory distress SKIN: Normal color, warm HEENT: [place] palpebral conjunctivae, no ptosis, dry buccal mucosa, nasal cannula in place NECK : Supple, short, no tenderness CHEST : Decreased breath sounds, no tenderness HEART : RRR, no obvious murmurs ABDOMEN: Some distention, hypogastric tenderness EXTREMITIES : Bilateral LE swelling, no LE tenderness, no other conspicuous deformities noted NEUROLOGIC : Coherent, no facial asymmetry, no other gross focality Results & Data Vital Signs (Past 12 Hours) Vital Signs Temp Pulse Pulse Resp BP BP BP 12/13/18 03:30 37.9 C H 100 H 18 124/67 12/13/18 01:47 99 H 12/12/18 22:45 36.9 C 95 H 20 116/73 12/12/18 21:43 88 19 125/79 12/12/18 20:46 88 22 121/73 12/12/18 20:40 127/64 12/12/18 19:27 89 18 12/12/18 19:13 Pulse Ox 12/13/18 03:30 92 12/13/18 01:47 12/12/18 22:45 94 12/12/18 21:43 95 12/12/18 20:46 94 12/12/18 20:40 98 12/12/18 19:27 96 12/12/18 19:13 86 L Laboratory Results Laboratory Results WBC 7.20 K/uL (4.8-10.8) 12/12/18 17:34 RBC 5.19 M/uL (4.2-5.4) 12/12/18 17:34 Hgb 15.1 g/dL (12.0-16.0) 12/12/18 17:34 Hct 42.8 % (37-47) 12/12/18 17:34 MCV 82.5 fL (80-100) 12/12/18 17:34 MCH 29.1 pg (25-34) 12/12/18 17:34 MCHC 35.3 g/dL (32-36) 12/12/18 17:34 RDW Std Deviation 41.9 fL (36.4-46.3) 12/12/18 17:34 RDW Coeff of Barak 13.9 % (11.5-14.5) 12/12/18 17:34 Plt Count 352 K/uL (130-400) 12/12/18 17:34 MPV 9.6 fL (7.4-10.4) 12/12/18 17:34 Immature Gran % (Auto) 0.3 % 12/12/18 17:34 Neut % (Auto) 54.8 % 12/12/18 17:34 Lymph % (Auto) 36.0 % 12/12/18 17:34 [place] % (Auto) 6.1 % 12/12/18 17:34 Eos % (Auto) 2.4 % 12/12/18 17:34 Baso % (Auto) 0.4 % 12/12/18 17:34 Immature Gran # (Auto) 0.02 K/uL (0.00-0.02) 12/12/18 17:34 Neut # (Auto) 3.95 K/uL (1.4-6.5) 12/12/18 17:34 Lymph # (Auto) 2.59 K/uL (1.2-3.4) 12/12/18 17:34 [place]mer # (Auto) 0.44 K/uL (0.11-0.59) 12/12/18 17:34 Eos # (Auto) 0.17 K/uL (0-0.5) 12/12/18 17:34 Baso # (Auto) 0.03 K/uL (0-0.2) 12/12/18 17:34 PT 10.6 Seconds (9.0-12.0) 12/12/18 17:34 INR 1.0 (0.9-1.1) 12/12/18 17:34 Sodium 138 mmol/L (136-145) 12/12/18 17:34 Potassium 4.0 mmol/L (3.5-5.1) 12/12/18 17:34 Chloride 106 mmol/L (98-107) 12/12/18 17:34 Carbon Dioxide 23 mmol/L (21-32) 12/12/18 17:34 Anion Gap 9.0 (3-11) 12/12/18 17:34 BUN 15 mg/dl (7-18) 12/12/18 17:34 Creatinine 0.83 mg/dl (0.6-1.2) 12/12/18 17:34 Est Cr Clr Drug Dosing 96.2 ml/min 12/12/18 17:34 Est GFR ( Amer) 94.6 12/12/18 17:34 Est GFR (Non-Af Amer) 81.6 12/12/18 17:34 BUN/Creatinine Ratio 18.1 (10-20) 12/12/18 17:34 Glucose 104 mg/dl (70-99) H 12/12/18 17:34 Calcium 9.2 mg/dl (8.5-10.1) 12/12/18 17:34 Total Bilirubin 0.2 mg/dl (0.2-1) 12/12/18 17:34 AST 17 U/L (15-37) 12/12/18 17:34 ALT 24 U/L (12-78) 12/12/18 17:34 Alkaline Phosphatase 81 U/L (45-117) 12/12/18 17:34 Troponin I < 0.015 ng/ml (0-0.045) 12/12/18 22:43 NT-Pro-B Natriuret Pep 38 pg/ml (0-900) 12/12/18 17:34 Total Protein 8.2 gm/dl (6.4-8.2) 12/12/18 17:34 Albumin 3.5 gm/dl (3.4-5.0) 12/12/18 17:34 Globulin 4.7 gm/dl (2.5-4.0) H 12/12/18 17:34 Albumin/Globulin Ratio 0.7 (0.9-2) L 12/12/18 17:34 Lipase 132 U/L (73-393) 12/12/18 17:34 HCG, Qual Negative (Negative) 12/12/18 17:34 Urine Color Yellow 12/12/18 20:01 Urine Appearance Clear (Clear) 12/12/18 20:01 Urine pH 5.0 (4.5-7.5) 12/12/18 20:01 Ur Specific Bennett > 1.045 (1.000-1.030) H 12/12/18 20:01 Urine Protein Negative (Negative) 12/12/18 20:01 Urine Glucose (UA) Negative (Negative) 12/12/18 20:01 Urine Ketones Negative (Negative) 12/12/18 20:01 Urine Blood Negative (Negative) 12/12/18 20:01 Urine Nitrite Negative (Negative) 12/12/18 20:01 Urine Bilirubin Negative (Negative) 12/12/18 20:01 Urine Urobilinogen Negative (Negative) 12/12/18 20:01 Ur Leukocyte Esterase Negative (Negative) 12/12/18 20:01 Urine Test Negative (Negative) 12/12/18 19:[address] abdomen pelvis: 1. Acute diverticulitis at the descending sigmoid junction with suspected microperforation. There are no fluid collections to indicate a drainable abscess 2. Enlarging 37 mm right ovarian cyst 3. No evidence of bowel obstruction. Chest x-ray showed 1. Suspected mild pulmonary vascular congestion/fluid overload 2. Bibasilar interstitial opacities, statistically atelectatic EKG as per my interpretation :Rate 70, NSR, T wave flattening inferior leads
[2018-12-13] MEDS ORDERED: NALOXONE HCL 0.4 MG/1 ML VIAL/CARP IV PRN (06:25)
[2018-12-13] MEDS ORDERED: SODIUM CHLORIDE 0.9% 1000ML IV PRN (06:26)
--- NOTE | 2018-12-13 06:29 | Progress Note ---
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 pt at very high risk for postop complications if she were to require emergent operation/ colostomy may consider transfer if she worsens ice only- adv to clears ?sat/sun very slowly Dr Miner covering over weekend Diverticulitis bleeding: without bleeding Diverticulitis site: large intestine Qualified Code(s): K57.20 - Diverticulitis of large intestine with perforation and abscess without bleeding Subjective having some pain Lt flank area- rec some percocet Tm 37.9 Physical Exam Physical Exam: abd soft- Lt flank tenderness Results & Data Vital Signs (Past 12 Hours) Vital Signs Temp Pulse Pulse Resp BP BP BP 12/13/18 03:30 37.9 C H 100 H 18 124/67 12/13/18 01:47 99 H 12/12/18 22:45 36.9 C 95 H 20 116/73 12/12/18 21:43 88 19 125/79 12/12/18 20:46 88 22 121/73 12/12/18 20:40 127/64 12/12/18 19:27 89 18 12/12/18 19:13 Pulse Ox 12/13/18 03:30 92 12/13/18 01:47 12/12/18 22:45 94 12/12/18 21:43 95 12/12/18 20:46 94 12/12/18 20:40 98 12/12/18 19:27 96 12/12/18 19:13 86 L
[2018-12-13] MEDS ORDERED: HYDROmorphone INJ 1 MG/ML SYRINGE IV ONE (06:30)
[2018-12-13 06:34] LABS: Basophils # (auto) 0.01 K/uL (0-0.2); Basophils % (auto) 0.1 %; Hematocrit (blood only) 38.8 % (37-47); Hemoglobin 13.3 g/dL (12.0-16.0); Immature Granulocytes # (auto) 0.06 K/uL (0.00-0.02); Immature Granulocytes % (auto) 0.4 %; Lymphocytes # (auto) 1.26 K/uL (1.2-3.4); Lymphocytes % (auto) 7.6 %; Mean Corpuscular Hgb Conc 34.3 g/dL (32-36); Mean Corpuscular Volume 84.2 fL (80-100); Mean Platelet Volume 9.5 fL (7.4-10.4); Monocytes # (auto) 0.75 K/uL (0.11-0.59); Monocytes % (auto) 4.5 %; Neutrophils # (auto) 14.48 K/uL (1.4-6.5); Neutrophils % (auto) 87.4 %; Platelet Count 301 K/uL (130-400); RDW Coefficient of Variation 14.3 % (11.5-14.5); RDW Standard Deviation 43.7 fL (36.4-46.3); Red Blood Count 4.61 M/uL (4.2-5.4); White Blood Count 16.56 K/uL (4.8-10.8)
[2018-12-13 06:39] LABS: Estimated Average Glucose 123 mg/dl; Hemoglobin A1C 5.9 % (4.5-5.6)
[2018-12-13] MEDS ORDERED: HYDROmorphone HCL 0.5MG/ML 50 ML CASSETTE IV PRN (06:45)
--- NOTE | 2018-12-13 07:15 | XRay Report ---
XR abdomen min 2V CLINICAL HISTORY: h/o diverticulitis, r/o pneumoperitoneum pain COMPARISON STUDY: CT abdomen 12/12/2018 FINDINGS: Mild nonobstructive ileus. No secondary evidence for free air. No evidence for pneumatosis. Contrast within the urinary bladder from a prior contrast study. IMPRESSION: Mild nonobstructive ileus. No secondary evidence for free air. The above report was generated using voice recognition software. It may contain grammatical, syntax or spelling errors. Electronically signed by: Dain Friend M.D. 12/13/2018 7:14 AM
[2018-12-13] MEDS: KETOROLAC 30 MG/ML VIAL IV SCH ×3 (07:28→17:34)
[2018-12-13] MEDS: SODIUM CHLORIDE 0.9% 1000ML 1,000 ML IV SCH (07:29)
[2018-12-13] MEDS ORDERED: PERFLUTREN LIPID MICROSPHERE (DEFINITY) IV ONE (07:44)
[2018-12-13] MEDS: MULTIVITAMIN TAB PO SCH (07:50)
[2018-12-13] MEDS: LACTOBACILLUS ACIDOPHILUS (FLORANEX) TAB PO SCH (07:50)
[2018-12-13] MEDS: ENOXAPARIN INJ 40 MG/0.4 ML SYR SQ SCH (07:51)
[2018-12-13] MEDS ORDERED: INFLUENZA VIRUS QUAD VACCINE 0.5 ML SYR IM ONE (09:00)
[2018-12-13] MEDS ORDERED: CEFEPIME CONSULT ACTIVE PRN (09:00)
[2018-12-13] MEDS ORDERED: INFLUENZA ADMINISTRATION CHARGE ONE (09:00)
--- NOTE | 2018-12-13 21:13 | Hospitalist Progress Note ---
Date of Service December 13, 2018 Assessment & Plan (1) Diverticulitis: Present on admission with abdominal pain with nausea CT abd/pelvis showed acute diverticulitis at the descending sigmoid junction with suspected microperforation. No fluid collections to indicate a drainable abscess. Elevated WBC Surgery on board recommended conservative management for now with IV Cefepime and flagyl Will continue IV abx for about 4 to 5 days If she develops any complication requiring abscess drainage or aggressive surgery may consider to transfer to a tertiary care center due to high risk for postoperative complicationS. Keep NPO for now Continue IVF Pain control Will monitor closely Hypoxemia CXR showed suspected mild pulmonary vascular congestion/fluid overload ECHO showed no wall motion abnormality with hyperdynamic LV function with EF >70% Will continue monitor Elevated Glucose Hba1c 5.9 Monitor BS DVT px on Lovenox Code status Full code Disposition Continue monitor BS Subjective Pt was seen and examined Lying in bed with at bedside Pt said that the pain med help She said that her pain is better control now Denies any chest pain, palpitation and SOB Physical Exam Physical Exam: General- No acute distress Head- atraumatic Eyes- PERRL, EOMI, ENT- oropharynx clear Neck- supple, no JVD Lungs- clear to auscultation Heart- regular rhythm; no murmur Abdomen- normal bowel sounds, +tender, obese Extremities- no calf tenderness Neuro- alert, oriented x 3; PERRL, EOMI; no facial palsy; no dysarthria Skin- warm & dry Results & Data Vital Signs (Past 12 Hours) Vital Signs Temp Pulse Pulse Resp BP BP Pulse Ox 12/13/18 20:00 37.1 C 92 H 18 91/60 L 92 12/13/18 16:00 92 H 12/13/18 15:04 36.7 C 97 H 18 94/61 L 90 12/13/18 12:01 36.8 C 98 H 20 122/73 92
[2018-12-13] MEDS ORDERED: CALCIUM CARBONATE 500 MG CHEWABLE TAB PO STA (22:16)
[2018-12-14] MEDS: KETOROLAC 30 MG/ML VIAL IV SCH ×4 (00:25→17:13)
[2018-12-14] MEDS: SODIUM CHLORIDE 0.9% 1000ML 1,000 ML IV SCH ×2 (01:59→20:37)
[2018-12-14] MEDS: metroNIDAZOLE 500 MG/100 ML BAG IV SCH ×3 (04:07→20:16)
[2018-12-14] MEDS: CEFEPIME 2,000 MG in SYRINGE 7.5 ML IV SCH ×3 (04:07→20:16)
[2018-12-14] MEDS: LACTOBACILLUS ACIDOPHILUS (FLORANEX) TAB PO SCH (08:30)
[2018-12-14] MEDS: ATENOLOL 25 MG TABLET PO SCH ×2 (08:30→20:38)
[2018-12-14] MEDS: MULTIVITAMIN TAB PO SCH (08:30)
[2018-12-14] MEDS: ENOXAPARIN INJ 40 MG/0.4 ML SYR SQ SCH (08:31)
[2018-12-14] MEDS: ONDANSETRON INJ 2 MG/ML 2 ML VIAL IV PRN ×2 (11:57→20:16)
--- NOTE | 2018-12-14 12:30 | Surgery Progress Note ---
Date of Service December 14, 2018 Assessment & Plan (1) Diverticulitis of intestine with perforation without abscess: Subjectively unchanged. No evidence of diffuse peritonitis. No evidence of abscess. Would continue with intravenous antibiotics and bowel rest. Continue with serial exams. Would repeat CBC in the a.m. Present on Admission?: Yes Subjective Pain level unchanged If she is sitting still there is no discomfort The discomfort occurs when she is moving Has some mild nausea but has not vomited Is passing flatus Has not had a bowel movement Afebrile Abdominal x-ray yesterday showed no evidence of free air. It did show mild ileus. Physical Exam Gastrointestinal (Abdomen): Inspection/Auscultation: normal bowel sounds; abdomen not distended Percussion/Palpation: + abdomen tender (Left lateral abdomen mostly although there is mild tenderness to the right ) and abdomen soft Results & Data Vital Signs (Past 12 Hours) Vital Signs Temp Pulse Pulse Pulse Resp BP BP 12/14/18 11:39 36.8 C 89 20 123/72 12/14/18 08:20 37.0 C 85 18 106/68 12/14/18 07:27 78 12/14/18 04:09 37 C 92 H 18 104/66 Pulse Ox 12/14/18 11:39 91 12/14/18 08:20 90 12/14/18 07:27 12/14/18 04:09 91 (1) Diverticulitis of intestine with perforation without abscess Diverticulitis bleeding: without bleeding Diverticulitis site: large intestine Qualified Code(s): K57.20 - Diverticulitis of large intestine with perforation and abscess without bleeding
--- NOTE | 2018-12-14 16:34 | Hospitalist Progress Note ---
Date of Service December 14, 2018 Assessment & Plan (1) Diverticulitis of intestine with perforation without abscess: Presented with left lower quadrant abdominal pain. White count was 16,000. CT of abdomen and pelvis demonstrated diverticulitis involving the sigmoid colon with suspected microperforation, no abscess. Did not appear to be septic. General Surgery consulted. Bowel rest, IV antibiotic therapy with cefepime and metronidazole, IV fluids. (2) Hypoxia: O2 sats as low as 86%. Chest x-ray showed possible mild pulmonary vascular congestion. Echocardiogram demonstrated mild concentric LVH, LVEF 70%, grade 1 diastolic dysfunction. Right ventricular size and systolic function was normal. Not certain that pt has CHF. Check pro-BNP. Repeat chest x-ray with PA and lateral films when patient is feeling better. May have poor inspiratory effort secondary to diverticulitis. Incentive spirometry. Continue CPAP. (3) Sleep apnea: Continue CPAP. (4) Ovarian cyst: CT of abdomen pelvis demonstrated a right ovarian cyst, measuring 37 mm (increased size compared to study performed on 09/13/17). 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 Follow-up as indicated. (5) DVT prophylaxis: SQ enoxaparin. (6) Discharge planning issues: Anticipated discharge to home. Family Medicine follow-up with Dr. Rivera. Subjective Recheck for diverticulitis and other problems. Patient seen in her room around 1630. Persistent abdominal pain, mostly localized in the left lower quadrant. Experiencing nausea, no emesis. No diarrhea, melena, hematochezia. Experiencing migraine headache. No fever, chills, sweats. Occasional mild cough. No shortness of breath. No chest pain. No urinary symptoms. Review of Systems Review of Systems: As noted above Physical Exam Constitutional: no acute distress Respiratory: no respiratory distress Auscultation: lungs clear to auscultation bilaterally Cardiovascular: Rate/Rhythm: regular rate and regular rhythm Heart Sounds: no gallop Vessels: no JVD Extremities: + edema (trace); no calf tenderness Gastrointestinal (Abdomen): Inspection/Auscultation: + abnormal bowel sounds (quiet) Percussion/Palpation: + abdomen tender (LLQ) Skin: no rashes, warm and dry Psychiatric: Orientation: alert and oriented x 3 Results & Data Vital Signs (Past 12 Hours) Vital Signs Temp Pulse Pulse Pulse Resp BP BP 12/14/18 16:00 105 H 12/14/18 15:00 36.9 C 88 20 110/64 12/14/18 11:39 36.8 C 89 20 123/72 12/14/18 08:20 37.0 C 85 18 106/68 12/14/18 07:27 78 Pulse Ox 12/14/18 16:00 12/14/18 15:00 93 12/14/18 11:39 91 12/14/18 08:20 90 12/14/18 07:27 Laboratory Results Laboratory Results - last 24 hr 12/14/18 12/14/18 16:58 16:58 WBC 13.10 H RBC 4.64 Hgb 13.4 Hct 39.5 MCV 85.1 MCH 28.9 MCHC 33.9 RDW Std Deviation 46.4 H RDW Coeff of Barak 14.9 H Plt Count 260 MPV 9.6 Immature Gran % (Auto) 0.4 Neut % (Auto) 90.9 Lymph % (Auto) 6.0 [place] % (Auto) 2.0 Eos % (Auto) 0.6 Baso % (Auto) 0.1 Immature Gran # (Auto) 0.05 H Neut # (Auto) 11.91 H Lymph # (Auto) 0.79 L [place] # (Auto) 0.26 Eos # (Auto) 0.08 Baso # (Auto) 0.01 Sodium 137 Potassium 3.7 Chloride 110 H Carbon Dioxide 25 Anion Gap 2.0 L BUN 28 H D Creatinine 0.76 Est Cr Clr Drug Dosing 120.2 Est GFR ( Amer) 105.3 Est GFR (Non-Af Amer) 90.8 BUN/Creatinine Ratio 36.9 H Glucose 90 Calcium 8.6 (1) Diverticulitis of intestine with perforation without abscess Diverticulitis bleeding: without bleeding Diverticulitis site: large intestine Qualified Code(s): K57.20 - Diverticulitis of large intestine with perforation and abscess without bleeding
[2018-12-14 17:07] LABS: Hematocrit (blood only) 39.5 % (37-47); Hemoglobin 13.4 g/dL (12.0-16.0); Mean Corpuscular Hgb Conc 33.9 g/dL (32-36); Mean Corpuscular Volume 85.1 fL (80-100); Mean Platelet Volume 9.6 fL (7.4-10.4); Platelet Count 260 K/uL (130-400); RDW Coefficient of Variation 14.9 % (11.5-14.5); RDW Standard Deviation 46.4 fL (36.4-46.3); Red Blood Count 4.64 M/uL (4.2-5.4)
[2018-12-14 17:23] LABS: Est GFR (African American) 105.3; Est GFR (Non-African American) 90.8; Potassium 3.7 mmol/L (3.5-5.1)
[2018-12-14 17:24] LABS: BUN Creatinine Ratio 36.9 (10-20); Calcium 8.6 mg/dl (8.5-10.1); Creatinine Clr Calc Pharmacy 120.2 ml/min
[2018-12-14 17:57] LABS: Basophils # (auto) 0.01 K/uL (0-0.2); Basophils % (auto) 0.1 %; Eosinophils # (auto) 0.08 K/uL (0-0.5); Eosinophils % (auto) 0.6 %; Immature Granulocytes # (auto) 0.05 K/uL (0.00-0.02); Immature Granulocytes % (auto) 0.4 %; Lymphocytes # (auto) 0.79 K/uL (1.2-3.4); Monocytes # (auto) 0.26 K/uL (0.11-0.59); Neutrophils # (auto) 11.91 K/uL (1.4-6.5); Neutrophils % (auto) 90.9 %
[2018-12-15] MEDS: KETOROLAC 30 MG/ML VIAL IV SCH ×4 (01:00→17:17)
[2018-12-15] MEDS: LORazepam 0.25 MG/0.5 ML VIAL IV PRN ×3 (02:51→15:26)
[2018-12-15] MEDS: CEFEPIME 2,000 MG in SYRINGE 7.5 ML IV SCH ×3 (04:32→20:00)
[2018-12-15] MEDS: metroNIDAZOLE 500 MG/100 ML BAG IV SCH ×3 (04:32→19:57)
[2018-12-15] MEDS: ENOXAPARIN INJ 40 MG/0.4 ML SYR SQ SCH (08:43)
[2018-12-15] MEDS: LACTOBACILLUS ACIDOPHILUS (FLORANEX) TAB PO SCH (08:43)
[2018-12-15] MEDS: MULTIVITAMIN TAB PO SCH (08:43)
[2018-12-15] MEDS: ATENOLOL 25 MG TABLET PO SCH ×2 (08:43→22:06)
[2018-12-15 09:34] LABS: Basophils # (auto) 0.01 K/uL (0-0.2); Basophils % (auto) 0.1 %; Eosinophils # (auto) 0.11 K/uL (0-0.5); Eosinophils % (auto) 0.9 %; Hemoglobin 13.2 g/dL (12.0-16.0); Immature Granulocytes # (auto) 0.04 K/uL (0.00-0.02); Immature Granulocytes % (auto) 0.3 %; Lymphocytes # (auto) 0.81 K/uL (1.2-3.4); Lymphocytes % (auto) 6.5 %; Mean Corpuscular Hgb Conc 33.8 g/dL (32-36); Mean Corpuscular Volume 86.5 fL (80-100); Mean Platelet Volume 9.7 fL (7.4-10.4); Monocytes # (auto) 0.45 K/uL (0.11-0.59); Monocytes % (auto) 3.6 %; Neutrophils % (auto) 88.6 %; Platelet Count 303 K/uL (130-400); RDW Coefficient of Variation 15.1 % (11.5-14.5); RDW Standard Deviation 48.2 fL (36.4-46.3); Red Blood Count 4.51 M/uL (4.2-5.4); White Blood Count 12.42 K/uL (4.8-10.8)
[2018-12-15 10:06] LABS: BUN Creatinine Ratio 36.6 (10-20); Calcium 9.3 mg/dl (8.5-10.1); Creatinine Clr Calc Pharmacy 114.1 ml/min; Est GFR (African American) 103.6; Est GFR (Non-African American) 89.4; Potassium 3.8 mmol/L (3.5-5.1)
[2018-12-15] MEDS: ONDANSETRON INJ 2 MG/ML 2 ML VIAL IV PRN (11:46)
[2018-12-15] MEDS: SODIUM CHLORIDE 0.9% 1000ML 1,000 ML IV SCH (18:28)
--- NOTE | 2018-12-15 19:02 | Surgery Progress Note ---
Date of Service December 15, 2018 Assessment & Plan (1) Diverticulitis of intestine with perforation without abscess: Diverticulitis without diffuse peritonitis. Would continue with conservative measures and continue the IV antibiotics. We will keep her just on ice chips as her tenderness persists. Present on Admission?: Yes Subjective [place] better today. No pain at rest. Less pain with motion. Was able to walk with her family today No nausea or vomiting Physical Exam Gastrointestinal (Abdomen): Inspection/Auscultation: normal bowel sounds Percussion/Palpation: + abdomen tender (Slightly less than yesterday and only on the left side in the lower midline today) and abdomen soft Results & Data Vital Signs (Past 12 Hours) Vital Signs Temp Pulse Pulse Resp BP Pulse Ox 12/15/18 16:00 36.5 C 90 18 96/62 L 91 12/15/18 14:52 75 12/15/18 11:24 36.8 C 93 H 18 130/79 90 12/15/18 07:18 36.5 C 83 19 133/78 95 12/15/18 07:12 92 H (1) Diverticulitis of intestine with perforation without abscess Diverticulitis bleeding: without bleeding Diverticulitis site: large intestine Qualified Code(s): K57.20 - Diverticulitis of large intestine with perforation and abscess without bleeding
--- NOTE | 2018-12-15 20:44 | Hospitalist Progress Note ---
Date of Service December 15, 2018 Assessment & Plan (1) Diverticulitis of intestine with perforation without abscess: Presented with left lower quadrant abdominal pain. White count was 16,000. CT of abdomen and pelvis demonstrated diverticulitis involving the sigmoid colon with suspected microperforation, no abscess. Did not appear to be septic. General Surgery consulted. Bowel rest, IV antibiotic therapy with cefepime and metronidazole, IV fluids. WBC 16,560 --> 12,242. (2) Hypoxia: O2 sats as low as 86%. Chest x-ray showed possible mild pulmonary vascular congestion. Echocardiogram demonstrated mild concentric LVH, LVEF 70%, grade 1 diastolic dysfunction. Right ventricular size and systolic function was normal. Not certain that pt has CHF. Pro-BNP normal. Repeat chest x-ray with PA and lateral films when patient is feeling better. May have poor inspiratory effort secondary to diverticulitis. Incentive spirometry. Continue CPAP. (3) Sleep apnea: Continue CPAP. (4) Ovarian cyst: CT of abdomen pelvis demonstrated a right ovarian cyst, measuring 37 mm (increased size compared to study performed on 09/13/17). 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 (5) DVT prophylaxis: SQ enoxaparin. (6) Discharge planning issues: Anticipated discharge to home. Family Medicine follow-up with Dr. Rivera. Subjective Recheck for diverticulitis and other problems. Patient seen in her room around 1810. Family visiting. Persistent LLQ abdominal pain. Experiencing nausea, no emesis. No diarrhea, melena, hematochezia. Migraine headache less severe. No fever, chills, sweats. Rare cough. No shortness of breath. No chest pain. No urinary symptoms. Review of systems as noted above. Physical Exam Constitutional: no acute distress Respiratory: no respiratory distress Auscultation: lungs clear to auscultation bilaterally Cardiovascular: Rate/Rhythm: regular rate and regular rhythm Heart Sounds: no gallop Vessels: no JVD Extremities: + edema (trace); no calf tenderness Gastrointestinal (Abdomen): Inspection/Auscultation: normal bowel sounds (quiet) Percussion/Palpation: + abdomen tender (LLQ) Skin: no rashes, warm and dry Psychiatric: Orientation: alert and oriented x 3 Results & Data Vital Signs (Past 12 Hours) Vital Signs Temp Pulse Pulse Resp BP Pulse Ox 12/15/18 16:00 36.5 C 90 18 96/62 L 91 12/15/18 14:52 75 12/15/18 11:24 36.8 C 93 H 18 130/79 90 Laboratory Results Laboratory Results - last 24 hr 12/15/18 12/15/18 09:06 09:06 WBC 12.42 H RBC 4.51 Hgb 13.2 Hct 39.0 MCV 86.5 MCH 29.3 MCHC 33.8 RDW Std Deviation 48.2 H RDW Coeff of Barak 15.1 H Plt Count 303 MPV 9.7 Immature Gran % (Auto) 0.3 Neut % (Auto) 88.6 Lymph % (Auto) 6.5 [place] % (Auto) 3.6 Eos % (Auto) 0.9 Baso % (Auto) 0.1 Immature Gran # (Auto) 0.04 H Neut # (Auto) 11.00 H Lymph # (Auto) 0.81 L [place] # (Auto) 0.45 Eos # (Auto) 0.11 Baso # (Auto) 0.01 Sodium 141 Potassium 3.8 Chloride 110 H Carbon Dioxide 24 Anion Gap 8.0 BUN 28 H Creatinine 0.77 Est Cr Clr Drug Dosing 114.1 Est GFR ( Amer) 103.6 Est GFR (Non-Af Amer) 89.4 BUN/Creatinine Ratio 36.6 H Glucose 89 Calcium 9.3 NT-Pro-B Natriuret Pep 242 (1) Diverticulitis of intestine with perforation without abscess Diverticulitis bleeding: without bleeding Diverticulitis site: large intestine Qualified Code(s): K57.20 - Diverticulitis of large intestine with perforation and abscess without bleeding
[2018-12-15] MEDS: D5W AND LACTATED RINGERS 1,000 ML IV SCH (22:06)
[2018-12-16] MEDS: LORazepam 0.25 MG/0.5 ML VIAL IV PRN ×3 (00:19→21:02)
[2018-12-16] MEDS: KETOROLAC 30 MG/ML VIAL IV SCH ×5 (00:20→23:44)
[2018-12-16] MEDS: CEFEPIME 2,000 MG in SYRINGE 7.5 ML IV SCH ×3 (04:53→20:48)
[2018-12-16] MEDS: metroNIDAZOLE 500 MG/100 ML BAG IV SCH ×3 (04:53→20:47)
[2018-12-16] MEDS: ONDANSETRON INJ 2 MG/ML 2 ML VIAL IV PRN (04:53)
[2018-12-16] MEDS: D5W AND LACTATED RINGERS 1,000 ML IV SCH ×3 (04:53→20:47)
--- NOTE | 2018-12-16 06:25 | Progress Note ---
Date of Service December 16, 2018 Assessment & Plan (1) Diverticulitis: will try clear liquids, cont SLAB GRINDER today- possible chg to po/prn IV tomorrow. Likely re CT at some point to assess progress- ?Tue- has only rec 3 1/2 days of IV atbx so far- if progresses, will need Colorectal f/u- hopefully min invasive surgery if needed in future Subjective afeb, less pain, seems to be moving better using SLAB GRINDER less wbc slowly coming down Physical Exam Physical Exam: less tender, active bowel sounds Results & Data Vital Signs (Past 12 Hours) Vital Signs Temp Pulse Resp BP Pulse Ox 12/16/18 04:16 37 C 106 H 20 162/90 H 91 12/15/18 23:21 37.3 C 102 H 18 148/85 H 90 12/15/18 21:00 36.4 C L 99 H 18 132/76 95
[2018-12-16 06:47] LABS: Hematocrit (blood only) 35.7 % (37-47); Hemoglobin 12.2 g/dL (12.0-16.0); Mean Corpuscular Hgb Conc 34.2 g/dL (32-36); Mean Corpuscular Volume 83.2 fL (80-100); Mean Platelet Volume 9.3 fL (7.4-10.4); Platelet Count 298 K/uL (130-400); RDW Standard Deviation 45.9 fL (36.4-46.3); Red Blood Count 4.29 M/uL (4.2-5.4); White Blood Count 10.73 K/uL (4.8-10.8)
[2018-12-16 07:19] LABS: BUN Creatinine Ratio 33.4 (10-20); Calcium 8.3 mg/dl (8.5-10.1); Creatinine Clr Calc Pharmacy 158.3 ml/min; Est GFR (African American) 123.7; Est GFR (Non-African American) 106.7; Potassium 3.3 mmol/L (3.5-5.1)
[2018-12-16] MEDS: LACTOBACILLUS ACIDOPHILUS (FLORANEX) TAB PO SCH (08:16)
[2018-12-16] MEDS: MULTIVITAMIN TAB PO SCH (08:16)
[2018-12-16] MEDS: ATENOLOL 25 MG TABLET PO SCH ×2 (08:17→20:47)
[2018-12-16] MEDS: ENOXAPARIN INJ 40 MG/0.4 ML SYR SQ SCH (08:17)
--- NOTE | 2018-12-16 11:12 | Infectious Disease Consult ---
Date of Consultation December 16, 2018 Assessment & Plan (1) Diverticulitis of intestine with perforation without abscess: continue IV abx for now. When tolerating po diet can change to po flagyl and cipro 500mg po bid to complete 14 days. avoid augmentin due to pcn allergy. History of Present Illness Attending Physician: Trey Veliz MD pt admitted with sudden onset abd pain, CT in ER revealed sigmoid diverticulitis with ? contained microperforation but no abscess. was started on cefepime and flagyl. tolerating well. npo. placed on clears this am, drank some joon monie today, some nausea, no vomiting. no f/c. still with abd pain, no significant improvement surgery following, no plans for OR at this time. wbc was initially elevated at 16, now 10. slight fever 37.9 on admission but afebrile since. oob to chair on my exam. no cp, sob, cough, wheeze, no gu symptoms, ua negative. no cultures done. allergic to pcn and sulfa. abd pain only slightly better. Allergies Allergy/AdvReac Type Severity Reaction Status Date / Time Penicillins Allergy Intermediate HIVES Verified 12/12/18 18:03 Sulfa (Sulfonamide Allergy Intermediate HIVES Verified 12/12/18 18:03 Antibiotics) shellfish derived Allergy Mild Verified 12/12/18 18:03 sumatriptan AdvReac Intermediate HALLUCINATI Verified 12/12/18 18:03 ONS Home Medications Home Medications Medication Instructions Recorded Confirmed Type atenolol 25 mg PO BID 12/12/18 12/12/18 History lactobacillus combination no.4 3,000 mmu cells PO DAILY 12/12/18 12/12/18 History [Probiotic] multivitamin 1 tab PO DAILY 12/12/18 12/12/18 History eletriptan 40 mg PO DAILY PRN 12/14/18 12/14/18 History Patient History Medical History Ovarian cyst (Chronic) Sleep apnea (Chronic) Diverticulitis (Acute) Diverticulitis (Acute) Nausea, vomiting, and diarrhea (Acute) Vomiting (Acute) Surgical History S/P cholecystectomy (Resolved) Previous section (Resolved) S/P tubal ligation (Resolved) Previous section (Resolved) Family History Other No pertinent family history Social History Preferred Language: Czech Communication Ability: Effective 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 Beliefs That Will Affect Care: None Current Living Situation: Spouse current occupational status: employed Other Information That Helps Us Care for You: No Feels Safe at Home: Yes Safety Concerns: Feels Safe At This Time Smoking Status: Never smoker Hx Alcohol Use: No Hx Substance Use: No Review of Systems Review of Systems: All systems reviewed & are unremarkable except as noted in HPI & below Physical Exam Constitutional: WD/WN, vitals as above Eyes: PERRL, conjunctivae normal, anicteric sclerae ENMT: external ear and nose normal, oropharynx normal Neck: normal visual inspection Respiratory: normal respiratory effort, lungs clear to auscultation Cardiovascular: RRR, no murmur, no edema Gastrointestinal (Abdomen): Inspection/Auscultation: abdomen normal to inspection and normal bowel sounds; abdomen not distended Percussion/Palpation: + abdomen tender and abdomen soft; no guarding and abdomen not rigid Skin: no rashes, warm and dry Psychiatric: A+Ox3, euthymic affect Results & Data Vital Signs (Past 12 Hours) Vital Signs Temp Pulse Resp BP Pulse Ox 12/16/18 09:01 36.9 C 86 18 134/78 92 12/16/18 04:16 37 C 106 H 20 162/90 H 91 12/15/18 23:21 37.3 C 102 H 18 148/85 H 90 (1) Diverticulitis of intestine with perforation without abscess Diverticulitis bleeding: without bleeding Diverticulitis site: large intestine Qualified Code(s): K57.20 - Diverticulitis of large intestine with perforation and abscess without bleeding
--- NOTE | 2018-12-16 21:39 | Hospitalist Progress Note ---
Date of Service December 16, 2018 Assessment & Plan (1) Diverticulitis of intestine with perforation without abscess: Presented with left lower quadrant abdominal pain. White count was 16,000. CT of abdomen and pelvis demonstrated diverticulitis involving the sigmoid colon with suspected microperforation, no abscess. Did not appear to be septic. General Surgery and ID consulted. Managed with bowel rest, IV antibiotic therapy with cefepime and metronidazole, IV fluids. WBC 16,560 --> 10,730. Started on clear liquids. Advance diet as tolerated. (2) Hypoxia: O2 sats as low as 86%. Chest x-ray showed possible mild pulmonary vascular congestion. Echocardiogram demonstrated mild concentric LVH, LVEF 70%, grade 1 diastolic dysfunction. Right ventricular size and systolic function was normal. Not certain that pt has CHF. Pro-BNP normal. Repeat chest x-ray with PA and lateral films tomorrow. May have poor inspiratory effort secondary to diverticulitis. Incentive spirometry. Continue CPAP. (3) Sleep apnea: Continue CPAP. (4) Ovarian cyst: CT of abdomen pelvis demonstrated a right ovarian cyst, measuring 37 mm (increased size compared to study performed on 09/13/17). Will need outpatient follow-up with Gynecology. (5) DVT prophylaxis: SQ enoxaparin. (6) Discharge planning issues: Anticipated discharge to home. Family Medicine follow-up with Dr. Rivera. Subjective Recheck for diverticulitis and other problems. Patient seen in her room around 1040. Persistent LLQ abdominal pain, but somewhat better. Started on clear liquids. Experiencing intermittent nausea, no emesis. Loose stools today; no melena, hematochezia. No fever, chills, sweats. No cough. No shortness of breath. No chest pain. No urinary symptoms. Review of systems as noted above. Physical Exam Constitutional: no acute distress Respiratory: no respiratory distress Auscultation: lungs clear to auscultation bilaterally Cardiovascular: Rate/Rhythm: regular rate and regular rhythm Heart Sounds: no gallop Vessels: no JVD Extremities: + edema (trace); no calf tenderness Gastrointestinal (Abdomen): Inspection/Auscultation: normal bowel sounds Percussion/Palpation: + abdomen tender (LLQ) and abdomen soft Skin: no rashes, warm and dry Psychiatric: Orientation: alert and oriented x 3 Results & Data Vital Signs (Past 12 Hours) Vital Signs Temp Pulse Resp BP Pulse Ox 12/16/18 19:01 36.9 C 82 20 143/81 H 91 12/16/18 16:27 37.1 C 89 16 130/96 92 12/16/18 12:20 36.8 C 87 18 136/81 91 Laboratory Results Laboratory Results - last 24 hr 12/16/18 12/16/18 06:30 06:30 WBC 10.73 RBC 4.29 Hgb 12.2 Hct 35.7 L MCV 83.2 MCH 28.4 MCHC 34.2 RDW Std Deviation 45.9 RDW Coeff of Barak 15.0 H Plt Count 298 MPV 9.3 Sodium 140 Potassium 3.3 L Chloride 111 H Carbon Dioxide 22 Anion Gap 7.0 BUN 19 H Creatinine 0.58 L Est Cr Clr Drug Dosing 158.3 Est GFR ( Amer) 123.7 Est GFR (Non-Af Amer) 106.7 BUN/Creatinine Ratio 33.4 H Glucose 125 H Calcium 8.3 L (1) Diverticulitis of intestine with perforation without abscess Diverticulitis bleeding: without bleeding Diverticulitis site: large intestine Qualified Code(s): K57.20 - Diverticulitis of large intestine with perforation and abscess without bleeding
[2018-12-17] MEDS: ONDANSETRON INJ 2 MG/ML 2 ML VIAL IV PRN ×2 (01:42→11:27)
[2018-12-17] MEDS: D5W AND LACTATED RINGERS 1,000 ML IV SCH ×2 (04:40→13:28)
[2018-12-17] MEDS: CEFEPIME 2,000 MG in SYRINGE 7.5 ML IV SCH ×2 (04:40→13:26)
[2018-12-17] MEDS: metroNIDAZOLE 500 MG/100 ML BAG IV SCH ×2 (04:40→11:39)
[2018-12-17] MEDS ORDERED: ACETAMINOPHEN 1,000 MG/100 ML VIAL IV PRN (05:25)
[2018-12-17 06:39] LABS: Hematocrit (blood only) 34.8 % (37-47); Hemoglobin 12.1 g/dL (12.0-16.0); Mean Corpuscular Hgb Conc 34.8 g/dL (32-36); Mean Corpuscular Volume 82.3 fL (80-100); Mean Platelet Volume 9.3 fL (7.4-10.4); Platelet Count 330 K/uL (130-400); RDW Coefficient of Variation 15.2 % (11.5-14.5); RDW Standard Deviation 45.7 fL (36.4-46.3); Red Blood Count 4.23 M/uL (4.2-5.4); White Blood Count 9.78 K/uL (4.8-10.8)
[2018-12-17 07:35] LABS: BUN Creatinine Ratio 22.1 (10-20); Calcium 8.3 mg/dl (8.5-10.1); Est GFR (African American) 125.1; Potassium 3.1 mmol/L (3.5-5.1)
[2018-12-17] MEDS: ATENOLOL 25 MG TABLET PO SCH (08:34)
[2018-12-17] MEDS: LACTOBACILLUS ACIDOPHILUS (FLORANEX) TAB PO SCH (08:34)
[2018-12-17] MEDS: ENOXAPARIN INJ 40 MG/0.4 ML SYR SQ SCH (08:35)
[2018-12-17] MEDS: MULTIVITAMIN TAB PO SCH (08:35)
[2018-12-17] MEDS ORDERED: IOVERSOL 100ml IV PRN (09:28)
[2018-12-17] MEDS ORDERED: POTASSIUM CHLORIDE 20 MEQ TABCR PO STA (09:55)
--- NOTE | 2018-12-17 09:58 | XRay Report ---
XR chest 2V routine HISTORY: 53 years-old Female f/u for ? pulmonary edema acute shortness of breath with possible pulmo nary edema COMPARISON: Chest radiograph 12/12/2018 TECHNIQUE: PA and lateral views of the chest FINDINGS: The cardiac silhouette is enlarged. No pneumothorax. Blunting of the costophrenic angles suggests sma ll effusions. Bibasilar opacities are noted without overt pulmonary edema. Degenerative changes of th e shoulders and spine. Surgical clips project over the upper abdomen suggestive of prior cholecystect nan. IMPRESSION: 1. Cardiomegaly without overt pulmonary edema. 2. Small bilateral pleural effusions with bibasilar opacities suggestive of probable atelectasis. The above report was generated using voice recognition software. It may contain grammatical, syntax o r spelling errors. Electronically signed by: Chandu Funez M.D. 12/17/2018 9:57 AM
--- NOTE | 2018-12-17 10:02 | CT Scan Report ---
ABDOMEN AND PELVIS CT WITH IV AND ORAL CONTRAST CT DOSE: 1763.62 mGy.cm HISTORY: Left lower quadrant pain. assess diverticulitis TECHNIQUE: Multiaxial CT images of the abdomen and pelvis were performed following the use of intrave nous and oral contrast. A dose lowering technique was utilized adhering to the principles of ALARA. COMPARISON STUDY: Abdomen and pelvis CT 12/12/2018. FINDINGS: Interval development of small bilateral pleural effusions. There are bibasilar consolidativ e airspace opacities which are also new from the prior study. Small amount of pneumoperitoneum is carole ntified within the right subdiaphragmatic space. This is new from the prior study. No pneumatosis. No suspicious lytic or blastic osseous lesions. No hepatic or splenic masses. Prior cholecystectomy. Th e adrenal glands and pancreas are unremarkable. The kidneys enhance normally. No hydronephrosis. Trac e fluid medial to the spleen. This could be subcapsular in location. There is also trace perihepatic ascites. No retroperitoneal lymphadenopathy. Stable 3.7 cm right adnexal cyst. The uterus and left ov joshua are unremarkable. The bladder is not well-distended. Progressive bowel wall thickening and thomas lonic inflammatory change involving the distal descending colon and proximal sigmoid colon. Interval development of an elongated pericolonic abscess near the junction of the descending colon/sigmoid col on at the left paracolic gutter. This measures 2.5 cm in thickness. Distended and fluid-filled stomac h and proximal to mid small bowel. Multiple decompressed loops within the left lower quadrant adjacen t to the inflammatory change. This likely represents the transition point for the small bowel obstruc tion. Trace pelvic free fluid. Mild thickening of the left perineal lining consistent with a mild per itonitis. This is likely reactive to the acute diverticulitis. IMPRESSION: 1. Interval progression of the acute diverticulitis involving the descending colon and proximal sigmo id colon with interval development of a pericolonic abscess as described above. 2. There has also been interval development of free air beneath the right hemidiaphragm. 3. Interval development of a small bowel obstruction. Multiple decompressed loops of mid small bowel within the left lower quadrant adjacent to the diverticulitis likely represents the transition point. 4. Small bilateral pleural effusions and bibasilar consolidation. This favors atelectasis. However a pneumonia could also have a similar appearance. 5. These findings were discussed with Dr. Silver at 9:55 AM on 12/17/2018. Electronically signed by: Boom Edwards M.D. 12/17/2018 10:01 AM
--- NOTE | 2018-12-17 10:44 | Hospitalist Progress Note ---
Date of Service December 17, 2018 Assessment & Plan (1) Diverticulitis of intestine with perforation without abscess: Presented with left lower quadrant abdominal pain associated with nausea CT of abdomen and pelvis demonstrated diverticulitis involving the sigmoid colon with suspected microperforation, no abscess. White count was 16,000 on admission, now improves to wbc 9.78 General Surgery on board recommended to managed with bowel rest, IV antibiotic therapy with cefepime and metronidazole, IV fluids. Was starting on clear liquid Repeat CT abd/pelvis today showed Interval progression of the acute diverticulitis involving the descending colon and proximal sigmoid colon with interval development of a pericolonic abscess as described above. 2. There has also been interval development of free air beneath the right hemidiaphragm. 3. Interval development of a small bowel obstruction. Multiple decompressed loops of mid small bowel within the left lower quadrant adjacent to the diverticulitis likely represents the transition point. Case discussed with Surgery Dr. Sinclair that recommended to transfer to tertiary care center if pt requires abscess drainage or aggressive surgery due to high risk for postoperative complication. Discussed with [facility] post adoption coordinator Dr. Lynne who accepted the patient on transfer (2) Hypoxia: O2 sats as low as 86%. Chest x-ray showed possible mild pulmonary vascular congestion. Echocardiogram demonstrated mild concentric LVH, LVEF 70%, grade 1 diastolic dysfunction. Right ventricular size and systolic function was normal. Not certain that pt has CHF. Pro-BNP normal. Repeat chest x-ray with PA and lateral films showed cardiomegaly without overt pulmonary edema. Incentive spirometry. Continue CPAP. (3) Sleep apnea: Continue CPAP. (4) Ovarian cyst: CT of abdomen pelvis demonstrated a right ovarian cyst, measuring 37 mm (increased size compared to study performed on 09/13/17). Will need outpatient follow-up with Gynecology. (5) DVT prophylaxis: SQ enoxaparin during hospital course (6) Discharge planning issues: Will transfer to [facility] Accepting surgeon Dr. Lynne Subjective Pt was seen and and examined Lying in bed with Left sided abdominal tenderness Pt said that she continues to have abdominal pain She said that her abdomen feels more distended She said that she had a small bowel movement yesterday Pt said that her pain improves She said that she does not have any fever but feels nauseated and chills Denies any chest pain, palpitation, dizziness and SOB Physical Exam Physical Exam: General- No acute distress Head- atraumatic Eyes- PERRL, EOMI, ENT- oropharynx clear Neck- supple, no JVD Lungs- clear to auscultation Heart- regular rhythm; no murmur Abdomen- normal bowel sounds, +tender, obese, +Mild distended Extremities- no calf tenderness Neuro- alert, oriented x 3; PERRL, EOMI; no facial palsy; no dysarthria Skin- warm & dry Results & Data Vital Signs (Past 12 Hours) Vital Signs Temp Pulse Resp BP Pulse Ox 12/17/18 07:26 36.8 C 82 18 144/85 H 94 12/17/18 04:13 36.9 C 82 20 134/85 93 12/16/18 23:31 37.2 C 88 20 150/72 H 93 (1) Diverticulitis of intestine with perforation without abscess Diverticulitis bleeding: without bleeding Diverticulitis site: large intestine Qualified Code(s): K57.20 - Diverticulitis of large intestine with perforation and abscess without bleeding
[2018-12-17] MEDS: POTASSIUM CHLORIDE / WTR 10 MEQ/100 ML PLCT IV SCH ×2 (11:35→13:28)
--- NOTE | 2018-12-17 11:51 | Discharge Summary ---
Date of Service December 17, 2018 Admission HPI Per Admitting Provider History obtained from patient and records. Medical history significant for recurrent diverticulitis, TASNEEM on CPAP, migraine. Patient has had recurrent bouts of diverticulitis, most of which have been treated outpatient. Today patient had sudden onset lower abdominal pain achy, similar to diverticulitis pain accompanied by nausea, no fever, no chills. Good BM. Transient hypoxemia noted at the ER. Patient denies chest pain, S OB. Admits to some exertional shortness of breath, fluid retention symptoms at home. 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 Admission Exam Per Admitting Provider GENERAL: uncomfortable, obese, no respiratory distress SKIN: Normal color, warm HEENT: [place] palpebral conjunctivae, no ptosis, dry buccal mucosa, nasal cannula in place NECK : Supple, short, no tenderness CHEST : Decreased breath sounds, no tenderness HEART : RRR, no obvious murmurs ABDOMEN: Some distention, hypogastric tenderness EXTREMITIES : Bilateral LE swelling, no LE tenderness, no other conspicuous deformities noted NEUROLOGIC : Coherent, no facial asymmetry, no other gross focality Principal Diagnosis Acute Diverticulitis of intestine with perforation/Abscess Discharge Exam General- No acute distress Head- atraumatic Eyes- PERRL, EOMI, ENT- oropharynx clear Neck- supple, no JVD Lungs- clear to auscultation Heart- regular rhythm; no murmur Abdomen- normal bowel sounds, +tender, obese, +Mild distended Extremities- no calf tenderness Neuro- alert, oriented x 3; PERRL, EOMI; no facial palsy; no dysarthria Skin- warm & dry Discharge Data Allergies Allergy/AdvReac Type Severity Reaction Status Date / Time Penicillins Allergy Intermediate HIVES Verified 12/12/18 18:03 Sulfa (Sulfonamide Allergy Intermediate HIVES Verified 12/12/18 18:03 Antibiotics) shellfish derived Allergy Mild Verified 12/12/18 18:03 sumatriptan AdvReac Intermediate HALLUCINATI Verified 12/12/18 18:03 ONS Consultations 12/12/18 21:21 ED Decision to Admit Stat 12/12/18 22:24 Consult General Surgery Routine 12/16/18 06:19 Consult Infectious Diseases Routine Ordered Studies 12/12/18 17:13 CT abd pelvis IV con only Stat 12/17/18 08:08 CT abd pelvis oral and IV con Routine CT abd pelvis IV con only CLINICAL HISTORY: Right lower quadrant abdominal pain NAUSEA, HISTORY OF DIVERTICULITIS. COMPARISON STUDY: September 13, 2017 TECHNIQUE: The patient was scanned in a dynamic helical fashion during intravenous administration of 94 cc of Optiray 320. A dose lowering technique was utilized adhering to the principles of ALARA. CT DOSE: 1676.93 mGy.cm FINDINGS: Lower chest: There are dependent atelectatic changes. Liver: The contrast-enhanced liver is normal in size, contour, and attenuation. There is no intrahepatic biliary ductal dilatation. The hepatic veins and portal veins are patent. Gallbladder: Surgically absent Spleen: Normal in size and attenuation. Pancreas: Unremarkable. Adrenal glands: Unremarkable. Kidneys: There is symmetric renal cortical enhancement. The kidneys are normal in size without hydronephrosis. Bowel: There are no transition zone to indicate bowel obstruction. There are no findings to indicate acute appendicitis. There is acute diverticulitis involving the descending sigmoid junction. There are few tiny extraluminal air bubbles suggesting a microperforation. There are no fluid collections to indicate a drainable diverticular abscess. Peritoneum: No free air is visualized. There are few extraluminal gas bubbles adjacent to the above-described diverticulitis. There is a small amount of free pelvic fluid Vasculature: The abdominal aorta is normal in course and caliber. Adenopathy: None. Pelvic viscera: There is slight interval enlargement of a 37 mm right ovarian cyst. Skeletal structures: No destructive osseous lesions are seen. IMPRESSION: 1. Acute diverticulitis at the descending sigmoid junction with suspected microperforation. There are no fluid collections to indicate a drainable abscess 2. Enlarging 37 mm right ovarian cyst 3. No evidence of bowel obstruction. Electronically signed by: Leno Renee M.D. 12/12/2018 6:55 PM Dictated: 12/12/181847 Transcribed: 12/12/181847 ABDOMEN AND PELVIS CT WITH IV AND ORAL CONTRAST CT DOSE: 1763.62 mGy.cm HISTORY: Left lower quadrant pain. assess diverticulitis TECHNIQUE: Multiaxial CT images of the abdomen and pelvis were performed following the use of intravenous and oral contrast. A dose lowering technique was utilized adhering to the principles of ALARA. COMPARISON STUDY: Abdomen and pelvis CT 12/12/2018. FINDINGS: Interval development of small bilateral pleural effusions. There are bibasilar consolidative airspace opacities which are also new from the prior study. Small amount of pneumoperitoneum is identified within the right subdiaphragmatic space. This is new from the prior study. No pneumatosis. No suspicious lytic or blastic osseous lesions. No hepatic or splenic masses. Prior cholecystectomy. The adrenal glands and pancreas are unremarkable. The kidneys enhance normally. No hydronephrosis. Trace fluid medial to the spleen. This cou ld be subcapsular in location. There is also trace perihepatic ascites. No retroperitoneal lymphadenopathy. Stable 3.7 cm right adnexal cyst. The uterus and left ovary are unremarkable. The bladder is not well-distended. Progressive bowel wall thickening and pericolonic inflammatory change involving the distal descending colon and proximal sigmoid colon. Interval development of an elongated pericolonic abscess near the junction of the descending colon/sigmoid colon at the left paracolic gutter. This measures 2.5 cm in thickness. Distended and fluid-filled stomach and proximal to mid small bowel. Multiple decompressed loops within the left lower quadrant adjacent to the inflammatory change. This likely represents the transition point for the small bowel obstruction. Trace pelvic free fluid. Mild thickening of the left perineal lining consistent with a mild peritonitis. This is likely reactive to the acute diverticulitis. IMPRESSION: 1. Interval progression of the acute diverticulitis involving the descending colon and proximal sigmoid colon with interval development of a pericolonic abscess as described above. 2. There has also been interval development of free air beneath the right hemidiaphragm. 3. Interval development of a small bowel obstruction. Multiple decompressed loops of mid small bowel within the left lower quadrant adjacent to the diverticulitis likely represents the transition point. 4. Small bilateral pleural effusions and bibasilar consolidation. This favors atelectasis. However a pneumonia could also have a similar appearance. 5. These findings were discussed with Dr. Silver at 9:55 AM on 12/17/2018. Electronically signed by: Boom Edwards M.D. 12/17/2018 10:01 AM Dictated: 12/17/18 0943 Transcribed: 12/17/18 0943 XR chest 2V routine HISTORY: 53 years-old Female f/u for ? pulmonary edema acute shortness of breath with possible pulmonary edema COMPARISON: Chest radiograph 12/12/2018 TECHNIQUE: PA and lateral views of the chest FINDINGS: The cardiac silhouette is enlarged. No pneumothorax. Blunting of the costophrenic angles suggests small effusions. Bibasilar opacities are noted without overt pulmonary edema. Degenerative changes of the shoulders and spine. Surgical clips project over the upper abdomen suggestive of prior cholecystectomy. IMPRESSION: 1. Cardiomegaly without overt pulmonary edema. 2. Small bilateral pleural effusions with bibasilar opacities suggestive of probable atelectasis. The above report was generated using voice recognition software. It may contain grammatical, syntax or spelling errors. Electronically signed by: Chandu Funez M.D. 12/17/2018 9:57 AM Dictated: 12/17/18954 Transcribed: 12/17/18954 XR abdomen min 2V CLINICAL HISTORY: h/o diverticulitis, r/o pneumoperitoneum pain COMPARISON STUDY: CT abdomen 12/12/2018 FINDINGS: Mild nonobstructive ileus. No secondary evidence for free air. No evidence for pneumatosis. Contrast within the urinary bladder from a prior contrast study. IMPRESSION: Mild nonobstructive ileus. No secondary evidence for free air. The above report was generated using voice recognition software. It may contain grammatical, syntax or spelling errors. Electronically signed by: Dain Friend M.D. 12/13/2018 7:14 AM Dictated: 12/13/18712 Transcribed: 12/13/18712 XR chest 1V portable CLINICAL HISTORY: Hypoxia COMPARISON STUDY: 10/03/2013 FINDINGS: The heart is at the upper limits of normal in size. There is slight elevation interstitium suggesting mild pulmonary vascular congestion/fluid overload. There are by basilar opacities statistically atelectatic although an infectious/inflammatory process could appear similar. There are no significant pleural effusions[ IMPRESSION: 1. Suspected mild pulmonary vascular congestion/fluid overload 2. Bibasilar interstitial opacities, statistically atelectatic Electronically signed by: Leno Renee M.D. 12/12/2018 7:53 PM Dictated: 12/12/181951 Transcribed: 12/12/181951 Hospital Course (1) Diverticulitis of intestine with perforation without abscess: Presented with left lower quadrant abdominal pain associated with nausea CT of abdomen and pelvis demonstrated diverticulitis involving the sigmoid colon with suspected microperforation, no abscess. White count was 16,000 on admission, now improves to wbc 9.78 General Surgery on board recommended to managed with bowel rest, IV antibiotic therapy with cefepime and metronidazole, IV fluids. Was starting on clear liquid Repeat CT abd/pelvis today showed Interval progression of the acute diverticulitis involving the descending colon and proximal sigmoid colon with interval development of a pericolonic abscess as described above. 2. There has also been interval development of free air beneath the right hemidiaphragm. 3. Interval development of a small bowel obstruction. Multiple decompressed loops of mid small bowel within the left lower quadrant adjacent to the diverticulitis likely represents the transition point. Case discussed with Surgery Dr. Sinclair that recommended to transfer to tertiary care center if pt requires abscess drainage or aggressive surgery due to high risk for postoperative complication. Discussed with [facility] production cell leader Dr. Lynne who accepted the patient on transfer (2) Hypoxia: O2 sats as low as 86%. Chest x-ray showed possible mild pulmonary vascular congestion. Echocardiogram demonstrated mild concentric LVH, LVEF 70%, grade 1 diastolic dysfunction. Right ventricular size and systolic function was normal. Not certain that pt has CHF. Pro-BNP normal. Repeat chest x-ray with PA and lateral films showed cardiomegaly without overt pulmonary edema. Incentive spirometry. Continue CPAP. (3) Sleep apnea: Continue CPAP. (4) Ovarian cyst: CT of abdomen pelvis demonstrated a right ovarian cyst, measuring 37 mm (increased size compared to study performed on 09/13/17). Will need outpatient follow-up with Gynecology. (5) DVT prophylaxis: SQ enoxaparin during hospital course (6) Discharge planning issues: Will transfer to [facility] Accepting surgeon Dr. Lynne Total Time Total Time Spent Total Time Spent (In Minutes): 35 minutes Total Time Includes: Examination of the Patient, Discharge Planning, Medication Reconciliation, Communication With Other Providers and Other Discharge Plan Discharge Items Patient Disposition: Transfer Acute Care Hospital Reason For Visit: RESP FAILURE Discharge Diagnosis: Acute Diverticulitis of intestine with perforation/Abscess Discharge Goals: Decrease discomfort, Diagnostic testing, Improve disease control and Improve function Activity: Resume your previous activity Activity Comment: As tolerated Non-emergency contact: Primary Care Provider Call non-emergency contact if: you have any medication questions and your temperature is above 101 Follow-up/Referrals: Desirae Rivera, DO [Primary Care Provider] - Diet: See below Addtl Provider Instructions: Transfer to [facility] Accepting physician Dr. Lynne Continue IV Cefepime and IV Flagyl Continue pain control Continue Clear liquid diet Prescriptions: Continued atenolol 25 mg tablet 25 mg PO BID RF: 0 multivitamin Tablet 1 tab PO DAILY RF: 0 Probiotic 3 billion cell Capsule 3,000 mmu cells PO DAILY RF: 0 eletriptan 40 mg tablet 40 mg PO DAILY PRN (Reason: Migraine Headache) RF: 0 Stand-Alone Forms: Call Back Authorization, [facility] Discharge Orders: Discharge Order (Routine); Ordered 12/17/18 Ordered By: Faith Silver Admission Data Admit Date/Time: 12/12/18 21:15 Attending Provider: Faith Silver Admit Provider: Dylon Amezcua Primary Care Provider: Desirae Rivera Other Providers: Faith Silver ; Dylon Amezcua ; Idris Sinclair ; Sam Last ; Nanci Oliveros ; Trey Veliz Service: Telemetry Medical
== END 2018-12-17 14:35 | disposition short-term general hospital (02) | DRG 392 ==
LOC: ED 17:04 → 2N 21:15 → SUATTDRO 21:15 → 2N 21:43

== ENCOUNTER 2021-02-19 10:53 | Observation (INO) ==
[2021-02-19] MEDS ORDERED: SODIUM CHLORIDE 0.9% 1000ML 1,000 ML IV STA (11:13)
[2021-02-19] MEDS ORDERED: ASPIRIN CHEW 324 MG PO STA (11:13)
[2021-02-19] MEDS ORDERED: ONDANSETRON INJ 2 MG/ML 2 ML VIAL IV STA (11:13)
[2021-02-19 11:20] LABS: Basophils # (auto) 0.02 K/uL (0-0.2); Basophils % (auto) 0.3 %; Eosinophils # (auto) 0.22 K/uL (0-0.5); Eosinophils % (auto) 3.8 %; Hematocrit (blood only) 45.6 % (37-47); Hemoglobin 15.6 g/dL (12.0-16.0); Immature Granulocytes # (auto) 0.01 K/uL (0.00-0.02); Immature Granulocytes % (auto) 0.2 %; Lymphocytes # (auto) 2.16 K/uL (1.2-3.4); Lymphocytes % (auto) 37.3 %; Mean Corpuscular Hemoglobin 29.9 pg (25-34); Mean Corpuscular Hgb Conc 34.2 g/dL (32-36); Mean Corpuscular Volume 87.5 fL (80-100); Mean Platelet Volume 9.5 fL (7.4-10.4); Monocytes # (auto) 0.35 K/uL (0.11-0.59); Neutrophils # (auto) 3.03 K/uL (1.4-6.5); Neutrophils % (auto) 52.4 %; Platelet Count 345 K/uL (130-400); RDW Coefficient of Variation 13.8 % (11.5-14.5); RDW Standard Deviation 44.6 fL (36.4-46.3); Red Blood Count 5.21 M/uL (4.2-5.4); White Blood Count 5.79 K/uL (4.8-10.8)
--- NOTE | 2021-02-19 11:22 | Emergency Department Note ---
History of Present Illness General Chief Complaint: Chest Pain Stated Complaint: CHEST PAIN Time Seen by Provider: 02/19/21 11:06 History of Present Illness Provider Complaint: chest pain Time: 08:00 Duration: intermittent and improved Onset: awoke with symptoms Pain Location: substernal Pain Radiation: LUE and neck Severity: moderate Maximum Pain Intensity: 7 Current Pain Intensity: 3 Quality: + heaviness (pressure) Relieved By: + nothing Exacerbated By: + nothing Context: + recent travel (travel to [place] last week); no recent illness, no recent surgery, no recent immobilization, no trauma/injury and no new medications Associated symptoms: + dyspnea and + palpitations; no nausea, no diaphoresis, no syncope and no leg swelling Treatments prior to arrival: none Home Medications Medication Instructions Recorded Confirmed Type atenolol 25 mg PO BID 12/12/18 02/19/21 History Allergies Allergy/AdvReac Type Severity Reaction Status Date / Time Penicillins Allergy Intermediate HIVES Verified 02/19/21 11:24 Sulfa (Sulfonamide Allergy Intermediate HIVES Verified 02/19/21 11:24 Antibiotics) shellfish derived Allergy Mild Vomiting Verified 02/19/21 11:24 sumatriptan AdvReac Intermediate HALLUCINATI Verified 02/19/21 11:24 ONS Past Med/Surg History Medical History Diverticulitis Heart palpitations reason for atenolol History of anesthesia reaction difficulty waking Migraine Morbid obesity with BMI of 50.0-59.9, adult Sleep apnea cpap with 2L O2 Surgical History History of bowel resection (~02/2019) d/t severe diverticulitis/abcess @ [facility] 02/2019--also removed left ovary at same time History of colonoscopy with polypectomy History of dilatation and curettage History of tonsillectomy Previous section x3 S/P cholecystectomy S/P tubal ligation Status post left oophorectomy (~02/2019) Family History Mother Family history of diabetes mellitus Family history of stomach cancer Other No family history of adverse response to anesthesia No pertinent family history Social History Smoking Status: Never smoker Second Hand Exposure: Yes (parents smoked); Hx Alcohol Use: No Hx Substance Use: No Preferred Language: Polish Communication Ability: Effective Entertainment Musician Required: No Beliefs That Will Affect Care: None Current Living Situation: Spouse Current Living Situation Comment: Lives with , children and grandchildren current occupational status: employed Feels Safe at Home: Yes Assistive Devices: None Review of Systems A total of 10 systems reviewed and were otherwise negative Physical Exam Vital Signs Vital Signs - 24 hr 02/19/21 10:54 02/19/21 11:04 02/19/21 11:10 Temperature 36.3 C L Temperature Source Skin Pulse Rate 81 76 74 Pulse Rate from SpO2 Sensor Respiratory Rate 18 19 21 Blood Pressure 165/87 H 163/83 H Blood Pressure Mean 113 109 Pulse Oximetry 97 96 96 Oxygen Delivery Method Room Air Room Air Sepsis Recent Fever Within 48 Hours No Sepsis New/Unexplained Change in Mental Status No Sepsis Action Taken by Nursing No Action Required 02/19/21 11:11 02/19/21 11:20 02/19/21 11:30 Temperature Temperature Source Pulse Rate 68 77 Pulse Rate from SpO2 Sensor Respiratory Rate 18 20 Blood Pressure Blood Pressure Mean Pulse Oximetry 96 96 Oxygen Delivery Method Room Air Room Air Sepsis Recent Fever Within 48 Hours Sepsis New/Unexplained Change in Mental Status Sepsis Action Taken by Nursing 02/19/21 11:31 02/19/21 11:37 Temperature Temperature Source Pulse Rate 90 67 Pulse Rate from SpO2 Sensor 68 Respiratory Rate 20 18 Blood Pressure 190/110 H 168/85 H Blood Pressure Mean 136 112 Pulse Oximetry 95 Oxygen Delivery Method Sepsis Recent Fever Within 48 Hours Sepsis New/Unexplained Change in Mental Status Sepsis Action Taken by Nursing Physical Exam GENERAL: She is oriented to person, place, and time. She appears well-developed and well-nourished. She does not appear distressed. HENT: Exam performed. -Head: Normocephalic and atraumatic. -Right Ear: External ear normal. No mastoid tenderness. -Left Ear: External ear normal. No mastoid tenderness. -Mouth/Throat: The oropharynx is clear and moist. No trismus in the jaw. No dental abscesses or uvula swelling. No oropharyngeal exudate or tonsillar abscesses. EYES: Conjunctivae and EOM are normal. Pupils are equal, round, and reactive to light. Right eye exhibits no discharge. Left eye exhibits no discharge. No scleral icterus. NECK: Normal range of motion. Neck supple. No JVD present. No spinous process tenderness present. No carotid bruit present. No rigidity. No tracheal deviation and normal range of motion present. No Brudzinski's sign and no Kernig's sign noted. CV: Normal rate, regular rhythm, normal heart sounds and intact distal pulses. There is no peripheral edema. Palpable radial pulses bue. PULM/CHEST: Effort normal and breath sounds normal. No respiratory distress. No stridor. She has no wheezes. She has no rales. -Chest Wall: She exhibits no tenderness. ABD: The abdomen is soft and morbidly obese. Bowel sounds are normal. She has no distension. No mass is present. There is no tenderness. There is no rebound, no guarding, no Wang's sign and no tenderness at McBurney's point. Rovsig negative MUSC/SKEL: Normal range of motion. There is no peripheral edema, tenderness or deformity. LYMPH: No cervical adenopathy. NEURO: She is alert and oriented to person, place, and time. She has normal strength. No cranial nerve deficit or sensory deficit. Coordination and gait normal. GCS eye subscore is 4. GCS verbal subscore is 5. GCS motor subscore is 6. Cerebellar tests wnl. SKIN: Skin is warm and dry. She is not diaphoretic. PSYCH: She has a normal mood and affect. Behavior is normal. Judgment and thought content normal. Course Course 1106: The patient was evaluated in room B2. A complete history and physical exam was performed Cardiac monitoring: An order was placed for continuous cardiac monitoring. The monitor shows a rate of 50 with sinus rhythm 1130: Vital signs stable. Patient reports her chest pain is improved status post the nitroglycerin. The patient did get up to use the restroom and then walking to the restroom she stated that she started having the chest pressure again. The patient sat down in the bed and she stated her chest pressure resolved. 1147: Vital signs stable. Labs within normal limits with the exception of an elevated lipase. D-dimer and troponin negative. Will obtain CT of the abdomen. Patient is currently reporting no chest pressure at this time. Given the patient's recurrence of chest pressure with exertion we will plan on admitting the patient to the hospital pending CT of the abdomen. 1233: Vital signs stable. CT of the abdomen is negative for pancreatitis. We will admit the patient for chest pain rule out ACS to the [facility] hospitalist team Nikki Nugent states to admit to Dr. Paige Administered Medications Nitroglycerin (Nitroglycerin Sl 0.4 Mg/Tab Tab) 0.4 mg SL UD PRN PRN Reason: Chest Pain Stop: 03/21/21 11:12 Last Admin: 02/19/21 11:25 Dose: 0.4 mg Documented by: [id number] Admin: 02/19/21 11:24 Dose: 0.4 mg Documented by: [id number] Discontinued Medications Aspirin (Aspirin Chew 324 Mg) 324 mg PO NOW STA Stop: 02/19/21 11:14 Last Admin: 02/19/21 11:24 Dose: 324 mg Documented by: [id number] Sodium Chloride (Nss 1000ml) 1,000 mls @ 999 mls/hr IV .Q1H1M STA Stop: 02/19/21 12:13 Last Admin: 02/19/21 11:23 Dose: 999 mls/hr Documented by: [id number] Ioversol (Optiray 320 100ml) 94 ml IV ONCE ONE Stop: 02/19/21 11:55 Last Admin: 02/19/21 11:54 Dose: 94 ml Documented by: [id number] Ondansetron HCl (Ondansetron Inj 2 Mg/Ml 2 Ml Vial) 4 mg IV NOW STA Stop: 02/19/21 11:14 Last Admin: 02/19/21 11:24 Dose: 4 mg Documented by: [id number] Medical Decision Making Laboratory Data Result diagrams: 02/19/21 11:10 02/19/21 11:10 Labs: Lab Results 02/19/21 02/19/21 02/19/21 Range/Units 11:10 11:10 11:10 WBC 5.79 (4.8-10.8) K/uL RBC 5.21 (4.2-5.4) M/uL Hgb 15.6 (12.0-16.0) g/dL Hct 45.6 (37-47) % MCV 87.5 (80-100) fL MCH 29.9 (25-34) pg MCHC 34.2 (32-36) g/dL RDW Std Deviation 44.6 (36.4-46.3) fL RDW Coeff of Barak 13.8 (11.5-14.5) % Plt Count 345 (130-400) K/uL MPV 9.5 (7.4-10.4) fL Immature Gran % (Auto) 0.2 % Neut % (Auto) 52.4 % Lymph % (Auto) 37.3 % [place] % (Auto) 6.0 % Eos % (Auto) 3.8 % Baso % (Auto) 0.3 % Neut # (Auto) 3.03 (1.4-6.5) K/uL Lymph # (Auto) 2.16 (1.2-3.4) K/uL [place] # (Auto) 0.35 (0.11-0.59) K/uL Eos # (Auto) 0.22 (0-0.5) K/uL Baso # (Auto) 0.02 (0-0.2) K/uL Immature Gran # (Auto) 0.01 (0.00-0.02) K/uL PT 10.3 (9.0-12.0) Seconds INR 1.0 (0.9-1.1) APTT 27.3 (21.0-31.0) Seconds PTT Ratio 1.0 D-Dimer 450 (0-500) ug/L FEU Sodium 138 (136-145) mmol/L Potassium 3.6 (3.5-5.1) mmol/L Chloride 106 (98-107) mmol/L Carbon Dioxide 30 (21-32) mmol/L Anion Gap 3.0 (3-11) BUN 16 (7-18) mg/dl Creatinine 0.78 (0.6-1.2) mg/dl Est Cr Clr Drug Dosing 101.8 ml/min Est GFR ( Amer) 100.6 ml/min Est GFR (Non-Af Amer) 86.8 ml/min BUN/Creatinine Ratio 20.7 H (10-20) Glucose 130 H (70-99) mg/dl Calcium 9.1 (8.5-10.1) mg/dl Total Bilirubin (0.2-1) mg/dl Direct Bilirubin (0-0.2) mg/dl AST (15-37) U/L ALT (12-78) U/L Alkaline Phosphatase (45-117) U/L Troponin I < 0.015 (0-0.045) ng/ml Total Protein (6.4-8.2) gm/dl Albumin (3.4-5.0) gm/dl Lipase 1028 H (73-393) U/L COVID-19 Eval Order 02/19/21 02/19/21 Range/Units 11:10 11:42 WBC (4.8-10.8) K/uL RBC (4.2-5.4) M/uL Hgb (12.0-16.0) g/dL Hct (37-47) % MCV (80-100) fL MCH (25-34) pg MCHC (32-36) g/dL RDW Std Deviation (36.4-46.3) fL RDW Coeff of Barak (11.5-14.5) % Plt Count (130-400) K/uL MPV (7.4-10.4) fL Immature Gran % (Auto) % Neut % (Auto) % Lymph % (Auto) % [place] % (Auto) % Eos % (Auto) % Baso % (Auto) % Neut # (Auto) (1.4-6.5) K/uL Lymph # (Auto) (1.2-3.4) K/uL [place] # (Auto) (0.11-0.59) K/uL Eos # (Auto) (0-0.5) K/uL Baso # (Auto) (0-0.2) K/uL Immature Gran # (Auto) (0.00-0.02) K/uL PT (9.0-12.0) Seconds INR (0.9-1.1) APTT (21.0-31.0) Seconds PTT Ratio D-Dimer (0-500) ug/L FEU Sodium (136-145) mmol/L Potassium (3.5-5.1) mmol/L Chloride (98-107) mmol/L Carbon Dioxide (21-32) mmol/L Anion Gap (3-11) BUN (7-18) mg/dl Creatinine (0.6-1.2) mg/dl Est Cr Clr Drug Dosing ml/min Est GFR ( Amer) ml/min Est GFR (Non-Af Amer) ml/min BUN/Creatinine Ratio (10-20) Glucose (70-99) mg/dl Calcium (8.5-10.1) mg/dl Total Bilirubin 0.5 (0.2-1) mg/dl Direct Bilirubin 0.1 (0-0.2) mg/dl AST 18 (15-37) U/L ALT 28 (12-78) U/L Alkaline Phosphatase 82 (45-117) U/L Troponin I (0-0.045) ng/ml Total Protein 8.1 (6.4-8.2) gm/dl Albumin 3.7 (3.4-5.0) gm/dl Lipase (73-393) U/L COVID-19 Eval Order Covid19 at [facility] Imaging Data Chest x-ray: Radiologist's impression: XR chest 1V portable CLINICAL HISTORY: Atypical chest pain COMPARISON STUDY: 12/17/2018 FINDINGS: The heart is the upper limits of normal in size. There is no failure. There is no focal pulmonary consolidation. There are no pleural effusions. Hazy increased density lung bases is felt to be secondary to overlying soft tissues given the patient's body habitus[ IMPRESSION: No active disease in the chest. ACT 112: Negative or not required by law. CT scan - abdomen: Radiologist's impression: CT abd pelvis IV con only CLINICAL HISTORY: Epigastric pain. Possible pancreatitis COMPARISON STUDY: 12/17/2018 TECHNIQUE: Patient was scanned in a dynamic helical fashion during intravenous administration of 94 cc of Optiray 320 A dose lowering technique was utilized adhering to the principles of ALARA. CT DOSE: 1804.10 mGy.cm FINDINGS: Lower chest: There are mild basilar atelectatic changes. There is no significant pleural fluid. Liver: The contrast-enhanced liver is normal in size, contour, and attenuation. There is no intrahepatic biliary ductal dilatation. The hepatic veins and portal veins are patent. Gallbladder: Surgically absent Spleen: Normal in size and attenuation. Pancreas: Unremarkable. Adrenal glands: Unremarkable. Kidneys: There is symmetric renal cortical enhancement. The kidneys are normal in size without hydronephrosis. Bowel: There are no transition zones to indicate bowel obstruction. There is no evidence of acute diverticulitis. There is no evidence of acute appendicitis. There is a sigmoid anastomosis Peritoneum: There is no intraperitoneal free air or abdominal ascites. Vasculature: The abdominal aorta is normal in course and caliber. Adenopathy: None. Pelvic viscera: The bladder, and pelvic viscera are unremarkable. Skeletal structures: No destructive osseous lesions are seen. IMPRESSION: 1. No acute intra-abdominal or pelvic findings 2. No evidence of bowel obstruction. No evidence of free air 3. No evidence of acute appendicitis. No evidence of acute diverticulitis 4. No CT evidence of acute pancreatitis ACT 112: Negative or not required by law. Electronically signed by: Leno Renee M.D. 02/19/2021 12:08 PM Dictated: 02/19/21 1205Transcribed: 02/19/21 1205 ECG Data Indication: chest pain Rate (beats per minute): 54 Rhythm: normal sinus Findings: no ST depression, no ST elevation and no prolonged QT Additional Comments: QRS 78 MDM Narrative 1106: The patient was evaluated in room B2. A complete history and physical exam was performed Cardiac monitoring: An order was placed for continuous cardiac monitoring. The monitor shows a rate of 50 with sinus rhythm 1130: Vital signs stable. Patient reports her chest pain is improved status post the nitroglycerin. The patient did get up to use the restroom and then walking to the restroom she stated that she started having the chest pressure again. The patient sat down in the bed and she stated her chest pressure resolved. 1147: Vital signs stable. Labs within normal limits with the exception of an elevated lipase. D-dimer and troponin negative. Will obtain CT of the abdomen. Patient is currently reporting no chest pressure at this time. Given the patient's recurrence of chest pressure with exertion we will plan on admitting the patient to the hospital pending CT of the abdomen. 1233: Vital signs stable. CT of the abdomen is negative for pancreatitis. We will admit the patient for chest pain rule out ACS to the [facility] hospitalist team Nikki Nugent states to admit to Dr. Paige Impression & Plan Chest pain Discharge Plan Visit Data Chief Complaint: Chest Pain Stated Complaint: CHEST PAIN ED Provider: Douglas Saul Discharge Problem: Chest pain Patient Disposition: Being Evaluated by Hospitalist Forms Stand Alone Forms: [employer] Prescriptions Prescriptions: No Action atenolol 25 mg tablet 25 mg PO BID RF: 0 Referrals Referrals: Desirae Rivera DO [Primary Care Provider] - Discharge Problem: Chest pain Qualifiers: Chest pain type: unspecified Qualified Code(s): R07.9 - Chest pain, unspecified
[2021-02-19] MEDS: NITROGLYCERIN SL 0.4 MG/TAB TAB SL PRN ×2 (11:24→11:25)
[2021-02-19 11:32] LABS: D Dimer 450 ug/L FEU (0-500); Partial Thromboplastin Time 27.3 Seconds (21.0-31.0); Prothrombin Time 10.3 Seconds (9.0-12.0)
[2021-02-19 11:36] LABS: BUN Creatinine Ratio 20.7 (10-20); Blood Urea Nitrogen 16 mg/dl (7-18); Calcium 9.1 mg/dl (8.5-10.1); Carbon Dioxide 30 mmol/L (21-32); Chloride 106 mmol/L (98-107); Creatinine Clr Calc Pharmacy 101.8 ml/min; Est GFR (African American) 100.6 ml/min; Est GFR (Non-African American) 86.8 ml/min; Glucose 130 mg/dl (70-99); Lipase 1028 U/L (73-393); Potassium 3.6 mmol/L (3.5-5.1); Sodium 138 mmol/L (136-145)
[2021-02-19 11:41] LABS: Troponin I < 0.015 ng/ml (0-0.045)
--- NOTE | 2021-02-19 11:52 | XRay Report ---
XR chest 1V portable CLINICAL HISTORY: Atypical chest pain COMPARISON STUDY: 12/17/2018 FINDINGS: The heart is the upper limits of normal in size. There is no failure. There is no focal pul monary consolidation. There are no pleural effusions. Hazy increased density lung bases is felt to be secondary to overlying soft tissues given the patient's body habitus[ IMPRESSION: No active disease in the chest. ACT 112: Negative or not required by law. Electronically signed by: Leno Renee M.D. 02/19/2021 11:50 AM
[2021-02-19] MEDS ORDERED: OPTIRAY 320 100ml IV ONE (11:54)
[2021-02-19 12:01] LABS: Albumin Level 3.7 gm/dl (3.4-5.0); Bilirubin Direct 0.1 mg/dl (0-0.2); Bilirubin,Total 0.5 mg/dl (0.2-1); Total Protein 8.1 gm/dl (6.4-8.2)
--- NOTE | 2021-02-19 12:10 | CT Scan Report ---
CT abd pelvis IV con only CLINICAL HISTORY: Epigastric pain. Possible pancreatitis COMPARISON STUDY: 12/17/2018 TECHNIQUE: Patient was scanned in a dynamic helical fashion during intravenous administration of 94 c c of Optiray 320 A dose lowering technique was utilized adhering to the principles of ALARA. CT DOSE: 1804.10 mGy.cm FINDINGS: Lower chest: There are mild basilar atelectatic changes. There is no significant pleural fluid. Liver: The contrast-enhanced liver is normal in size, contour, and attenuation. There is no intrahepa tic biliary ductal dilatation. The hepatic veins and portal veins are patent. Gallbladder: Surgically absent Spleen: Normal in size and attenuation. Pancreas: Unremarkable. Adrenal glands: Unremarkable. Kidneys: There is symmetric renal cortical enhancement. The kidneys are normal in size without hydron ephrosis. Bowel: There are no transition zones to indicate bowel obstruction. There is no evidence of acute div erticulitis. There is no evidence of acute appendicitis. There is a sigmoid anastomosis Peritoneum: There is no intraperitoneal free air or abdominal ascites. Vasculature: The abdominal aorta is normal in course and caliber. Adenopathy: None. Pelvic viscera: The bladder, and pelvic viscera are unremarkable. Skeletal structures: No destructive osseous lesions are seen. IMPRESSION: 1. No acute intra-abdominal or pelvic findings 2. No evidence of bowel obstruction. No evidence of free air 3. No evidence of acute appendicitis. No evidence of acute diverticulitis 4. No CT evidence of acute pancreatitis ACT 112: Negative or not required by law. Electronically signed by: Leno Renee M.D. 02/19/2021 12:08 PM
--- NOTE | 2021-02-19 12:45 | History & Physical Report ---
Date of Service February 19, 2021 Assessment & Plan (1) Chest pain: This is a 54yo F with a PMH of obesity, TASNEEM on CPAP, prediabetes, history of migraines and BPPV who presents with lightheadedness, near syncope, right-sided weakness and chest pain starting this morning. Developed CP after breakfast in setting of lightheadedness, and R-sided weakness she woke up with CP substernal with radiation to back, associated with near syncope BP 160s/80s, initial troponin negative, EKG without acute ischemic changes CXR IMPRESSION: No active disease in the chest Obtaining CTA chest to r/o dissection given description of CP and lightheadedness Given 324mg aspirin and NTG, pain now resolved Monitor on telemetry, trend troponin, 2D echo, hgb a1c and fasting lipid panel in AM Routine cardiology consult (2) Right sided weakness: Woke up with lightheadedness, R sided weakness that has improved but not completely resolved CT head wo contrast pending Mild RUE weakness still present on exam MRI brain w/wo con, echo with bubble study, neuro checks, routine neuro consult (3) Elevated lipase: Lipase 1,028 on admission but no nat abdominal pain, nausea has resolved CT a/p without evidence of pancreatitis Not clinically consistent with pancreatitis Monitor with repeat lipase in AM (4) Palpitations: Prescribed Atenolol 25mg BID for this. Denies any history of known arrhythmias or HTN (5) Prediabetes: A1c 6.3 in 11/13 Repeat a1c pending (6) Morbid obesity with BMI of 50.0-59.9, adult: A1c, fasting lipid profile pending. Continue counseling on healthy diet and incorporation of exercise (7) Obstructive sleep apnea: CPAP HS with o2 bled through, bringing from home DVT Ppx: SQ heparin Code status: FULL PCP: Miguel Dispo: Observation telemetry Patient seen in collaboration with Dr. Paige. Please see addendum. History of Present Illness Chief Complaint: CP Primary Care Provider: Desirae Rivera, DO This is a 54yo F with a PMH of obesity, TASNEEM on CPAP, prediabetes, history of migraines and BPPV who presents with lightheadedness, near syncope, right-sided weakness and chest pain starting this morning. Patient went to bed in normal state of health but woke up this morning feeling dizzy and weak on her right side. Was able to ambulate without issue. Denies any difficulty speaking or swallowing or facial droop. Was able to move right upper extremity but it was slower than usual, per . They decided she should eat breakfast to see if symptoms would resolve. After eating, she was walking in the kitchen when she experienced sudden onset 8/10 sharp substernal chest pain that radiated to her back and R shoulder blade, as well as continue feeling of weakness down right arm. Episode was associated with headache, diaphoresis and nausea. Improved once she sat down to rest. brought her in for further evaluation. Denies any personal history of stroke or heart disease. Diagnosed with prediabetes back in October 2019 with A1c of 6.3. Takes atenolol twice a day for history of heart palpitations but denies any known history of arrhythmias. Received nitroglycerin upon arrival with resolution of chest discomfort. Still has mild headache as well as slight feeling of weakness in right side, albeit much improved from this morning. Denies any fever, chills, lightheadedness, palpitations, shortness of breath, wheezing, nausea, vomiting, abdominal pain, dysuria, diarrhea constipation. Allergies Allergy/AdvReac Type Severity Reaction Status Date / Time Penicillins Allergy Intermediate HIVES Verified 02/19/21 11:24 Sulfa (Sulfonamide Allergy Intermediate HIVES Verified 02/19/21 11:24 Antibiotics) shellfish derived Allergy Mild Vomiting Verified 02/19/21 11:24 sumatriptan AdvReac Intermediate HALLUCINATI Verified 02/19/21 11:24 ONS Home Medications Medication Instructions Recorded Confirmed Type atenolol 25 mg PO BID 12/12/18 02/19/21 History Past Med/Surg History Medical History (Updated 02/19/21 @ 13:53 by Nikki Nugent PA-C) Diverticulitis History of anesthesia reaction difficulty waking Migraine Morbid obesity with BMI of 50.0-59.9, adult Ovarian cyst Palpitations Prediabetes Sleep apnea cpap with 2L O2 Surgical History (Updated 02/19/21 @ 12:59 by Nikki Nugent PA-C) History of bowel resection (~02/2019) d/t severe diverticulitis/[place] [facility] [place]also removed left ovary at same time History of colonoscopy with polypectomy History of dilatation and curettage History of tonsillectomy Previous section Previous section x3 S/P cholecystectomy S/P tubal ligation Status post left oophorectomy (~02/2019) Family History Mother Family history of diabetes mellitus Family history of stomach cancer Other No family history of adverse response to anesthesia No pertinent family history Social History Smoking Status: Never smoker Second Hand Exposure: Yes (parents smoked); Hx Alcohol Use: Yes Alcohol type: wine and hard liquor Hx Substance Use: No Preferred Language: Macedonian Communication Ability: Effective Coding Quality Coordinator Required: No Beliefs That Will Affect Care: None Current Living Situation: Spouse and Family Current Living Situation Comment: Lives with , children and grandchildren current occupational status: employed Other Information That Helps Us Care for You: No Feels Safe at Home: Yes Safety Concerns: Feels Safe At This Time Assistive Devices: CPAP and Glasses Review of Systems Review of Systems: At least ten systems reviewed and negative except as noted in the HPI. Physical Exam Physical Exam: General Appearance: vitals as above, NAD, sitting up in bed, morbidly obese, conversing easily Head: normocephalic, atraumatic Eyes: normal inspection, PERRL, conjunctivae normal, anicteric sclerae ENT: external ear and nose normal, oropharynx normal Neck: normal visual inspection, trachea midline, no thyromegaly Respiratory: normal respiratory effort, lungs clear to auscultation, no wheeze, rales, rhonchi. No accessory muscle use Cardiovascular: regular rate, rhythm, no murmur, normal peripheral pulses, no BLE edema. Vessels: no JVD Chest: normal inspection of chest, no reproducible chest pain with palpation Abdomen/GI: normal bowel sounds, soft, nontender, mild epigastric pain but no guarding, no hepatosplenomegaly Extremities/Musculoskeletal: no cyanosis or clubbing, LUE and LLE 5/5 strength against resistance. RUE 4/5, RLE 4+5 Neurologic: PERRL, EOMI, accommodation nl, no face palsy, no dysarthria, CN's II-XI intact bilaterally and moves all extremities Psychiatric: A+Ox3, euthymic affect Skin: no rashes, normal color, warm/dry Results & Data Results & Data ([facility]) Vital Signs (Past 12 Hours) Vital Signs Temp Pulse Resp BP Pulse Ox 02/19/21 11:37 67 18 168/85 H 95 02/19/21 11:31 90 20 190/110 H 02/19/21 11:30 77 20 02/19/21 11:20 68 18 96 02/19/21 11:11 96 02/19/21 11:10 74 21 96 02/19/21 11:04 76 19 163/83 H 96 02/19/21 10:54 36.3 C L 81 18 165/87 H 97 Laboratory Results Short CBC 02/19/21 02/19/21 Range/Units 11:10 11:10 WBC 5.79 (4.8-10.8) K/uL Hgb 15.6 (12.0-16.0) g/dL Hct 45.6 (37-47) % Plt Count 345 (130-400) K/uL Troponin I < 0.015 (0-0.045) ng/ml BMP 02/19/21 11:10 Sodium 138 Potassium 3.6 Chloride 106 Carbon Dioxide 30 BUN 16 Creatinine 0.78 Glucose 130 H Calcium 9.1 Cardiac Enzymes 02/19/21 Range/Units 11:10 Troponin I < 0.015 (0-0.045) ng/ml Liver Function 02/19/21 Range/Units 11:10 Total Bilirubin 0.5 (0.2-1) mg/dl Direct Bilirubin 0.1 (0-0.2) mg/dl AST 18 (15-37) U/L ALT 28 (12-78) U/L Alkaline Phosphatase 82 (45-117) U/L Albumin 3.7 (3.4-5.0) gm/dl Diagnostic Findings Chest X-Ray 02/19/21 11:13 XR chest 1V portable CLINICAL HISTORY: Atypical chest pain COMPARISON STUDY: 12/17/2018 FINDINGS: The heart is the upper limits of normal in size. There is no failure. There is no focal pulmonary consolidation. There are no pleural effusions. Hazy increased density lung bases is felt to be secondary to overlying soft tissues given the patient's body habitus[ IMPRESSION: No active disease in the chest. ACT 112: Negative or not required by law. Electronically signed by: Leno Renee M.D. 02/19/2021 11:50 AM Abdomen/Pelvis CT 02/19/21 11:38 CT abd pelvis IV con only CLINICAL HISTORY: Epigastric pain. Possible pancreatitis COMPARISON STUDY: 12/17/2018 TECHNIQUE: Patient was scanned in a dynamic helical fashion during intravenous administration of 94 cc of Optiray 320 A dose lowering technique was utilized adhering to the principles of ALARA. CT DOSE: 1804.10 mGy.cm FINDINGS: Lower chest: There are mild basilar atelectatic changes. There is no significant pleural fluid. Liver: The contrast-enhanced liver is normal in size, contour, and attenuation. There is no intrahepatic biliary ductal dilatation. The hepatic veins and portal veins are patent. Gallbladder: Surgically absent Spleen: Normal in size and attenuation. Pancreas: Unremarkable. Adrenal glands: Unremarkable. Kidneys: There is symmetric renal cortical enhancement. The kidneys are normal in size without hydronephrosis. Bowel: There are no transition zones to indicate bowel obstruction. There is no evidence of acute diverticulitis. There is no evidence of acute appendicitis. There is a sigmoid anastomosis Peritoneum: There is no intraperitoneal free air or abdominal ascites. Vasculature: The abdominal aorta is normal in course and caliber. Adenopathy: None. Pelvic viscera: The bladder, and pelvic viscera are unremarkable. Skeletal structures: No destructive osseous lesions are seen. IMPRESSION: 1. No acute intra-abdominal or pelvic findings 2. No evidence of bowel obstruction. No evidence of free air 3. No evidence of acute appendicitis. No evidence of acute diverticulitis 4. No CT evidence of acute pancreatitis ACT 112: Negative or not required by law. Electronically signed by: Leno Renee M.D. 02/19/2021 12:08 PM Code Status & VTE Plan VTE Prophylaxis Plan VTE Prophylaxis will be ordered: Yes Supervising Physician Co-Signing Physician Notes I saw this patient with the physician educational program assistant, I participated in the history, physical, review of systems, and physical exam. I reviewed the medications with the patient and the physician educational program assistant and helped reconcile the medications. I helped take a detailed family and social history as well. I formulated the assessment and plan personally with the physician educational program assistant and went over it with the patient. Physical Exam Gen-AAO x 3, NAD, Afebrile, obese Head-NCAT, EOMI, PERRLA, Anicteric Sclera, No Posterior Pharyngeal Erythema Neck-Supple, No JVD, No Thyromegaly, No Masses, No LAD, No Bruits Lungs-Clear to Auscultation Bilaterally, No Rales, No Rhonchi, No Wheezing, No Crepitus Chest-No S4, +S1, +S2, No S3, No Murmurs, No Rubs, No Gallops, No Ectopy Abdomen-Soft, Bowel Sounds Present, Non Tender, Non Distended, No Hepatomegaly, No Splenomegaly, No Palpable Masses, No Rebound, No Rigidity, No Guarding Musculoskeletal-Full Range of Motion Bilaterally, No CVAT Extremities-No Cyanosis, No Clubbing, No Edema Nuero-Cranial Nerves II-XII grossly intact, Motor WNL, DTRs WNL, Strength WNL, Non Focal Psych-Normal Mood (1) Chest pain Chest pain type: unspecified Qualified Code(s): R07.9 - Chest pain, unspecified
[2021-02-19] MEDS ORDERED: OPTIRAY 320 125ml IV ONE (13:59)
--- NOTE | 2021-02-19 14:16 | CT Scan Report ---
CT ANGIOGRAM OF THE CHEST COMBO CLINICAL HISTORY: COMPARISON STUDY: Chest x-ray dated 02/19/2021, chest CT scan dated 05/08/2008 TECHNIQUE: Before and following the IV administration of 120 cc of Optiray, CT angiogram of the chest was performed from the thoracic inlet to the upper abdomen utilizing the dissection protocol. Images are reviewed in the axial, sagittal, and coronal planes. 3-D MIPS images are created and assessed. I V contrast was administered without complication. A dose lowering technique was utilized adhering to the principles of ALARA. CT DOSE: 2834.50 mGy.cm FINDINGS: The thyroid gland is unremarkable in appearance. Noncontrast images reveal no evidence of acute thoracic aortic hematoma. Postcontrast images reveal no evidence of thoracic aortic aneurysm or dissection. There are no central pulmonary emboli identified. There are no pleural effusions. There is mild basilar atelectasis. There are no areas of parenchymal consolidation to indicate pneumo lorena. There is no evidence of pathologic mediastinal lymphadenopathy. There is no evidence of pathologic hilar lymphadenopathy. There is no evidence of pathologic axillary lymphadenopathy. The heart is borderline enlarged. There is no significant pericardial fluid. No destructive skeletal lesions are visualized. There is a subtle nonspecific 1 cm sclerotic focus wi thin the T11 vertebra. This remains unchanged from prior abdominal pelvic CT scan performed November IMPRESSION: 1. No acute intrathoracic findings 2. No evidence of thoracic aortic aneurysm or dissection 3. No evidence of focal pulmonary consolidation 4. No evidence of pathologic adenopathy ACT 112: Negative or not required by law. Electronically signed by: Leno Renee M.D. 02/19/2021 2:15 PM
--- NOTE | 2021-02-19 14:18 | CT Scan Report ---
CT head/brain wo con CLINICAL HISTORY: Near syncope. Lightheadedness. Possible acute stroke. COMPARISON STUDY: No previous studies for comparison. TECHNIQUE: Axial CT of the brain is performed from the vertex to the skull base. IV contrast was not administered for this examination. A dose lowering technique was utilized adhering to the principles of ALARA. CT DOSE: FINDINGS: No intra or extra-axial mass lesions are visualized. There is no CT evidence of acute cortical infarc tion. There is no evidence of midline shift. There is no acute hemorrhage. No calvarial fractures ar e visualized. A subtle left frontal hypodensity as visualized on image #20 is felt to represent partial volume aver aging with a cortical sulcus There is no evidence of pathologic ventricular dilatation. There is no evidence of acute sinusitis IMPRESSION: No acute intracranial findings ACT 112: Negative or not required by law. Electronically signed by: Leno Renee M.D. 02/19/2021 2:17 PM
[2021-02-19] MEDS ORDERED: ACETAMINOPHEN 325 MG TAB PO PRN (14:27)
[2021-02-19] MEDS ORDERED: POLYETHYLENE (MIRALAX) 17 GM PACK PO PRN (14:27)
[2021-02-19] MEDS ORDERED: PHARMACIST DISCHARGE MED REC CONSULT PRN (14:27)
[2021-02-19] MEDS ORDERED: ONDANSETRON INJ 2 MG/ML 2 ML VIAL IV PRN (14:27)
[2021-02-19] MEDS: SODIUM CHLORIDE 0.9% 1000ML 1,000 ML IV SCH ×2 (15:01→23:03)
[2021-02-19] MEDS: HEPARIN SOD 5,000 UNIT/0.5 ML VIAL SQ SCH ×2 (15:39→21:21)
--- NOTE | 2021-02-19 19:13 | Communication Note ---
Date of Service: February 19, 2021 S is 55 years old is right-handed is a patient of Dr. Combs and suffers from low frequency migraines over the years takes some Relpax when she has an episode and these are often preceded by some visual auras but never by any numbness or tingling in her extremities or by any confusion. Recently her migraines have gotten little more frequent occurring about once a month whereas previously they were rare perhaps to the year and she awakened this morning with a low-grade headache vague imbalance, problems with word finding, and numbness and tingling in the right arm She felt a perhaps she was little hypoglycemic went and got breakfast and then developed acute substernal chest pain radiating to the right periscapular region and was brought to the hospital and worked up extensively for an aortic dissection with negative CT angiography of the chest and negative CT of the head but further studies of the cerebrovascular tremor not performed. An echo has been done but has not seen her for She was given aspirin and a standard loading dose and now is on heparin subcutaneously for DVT prophylaxis and I suggested that we place her on aspirin a day until the work-up is completed Over the course of the day she is gotten significantly better the confusion has gone the right arm is a little clumsy she did have some minor issues with the right leg which are resolved and she did get a headache but unfortunately she also received a nitroglycerin in the emergency room for the chest pain which probably gave her headache but did not relieve the chest pain All of this occurs in the setting of morbid obesity prediabetes, history of palpitations, obstructive sleep apnea, diverticulitis, and the migraine headaches and surgically she has had a cholecystectomy tubal ligation and is section. Home medications are very few. He apparently takes some CPAP does not take an antiplatelet agent and according to the chart only takes atenolol She claims sensitivities to penicillin and sulfa shellfish and sumatriptan but despite the Shofu she had no allergy has tolerated her CT angiogram dye very well Family history is noncontributory. Social history reveals to be non- smoker nonconsumer of ethanol Review of systems with the exception of slight increased frequency of migraines now to about monthly reveals no particular new stressors stable weight no hospitalizations no other episodes of chest pain, a history of periodic palpitations, no pulmonary problems other than the sleep apnea and only mild degenerative arthritic complaints and no neurologic issues other than the migraines. She does have the prediabetes is no significant skin issues does not have any chronic infectious illnesses On exam her blood pressure is 115/73 pulse 71 respirations are 19 she is afebrile she has O2 saturations 93% on room air She is awake alert oriented 3 spheres with clear speech normal eye movements normal acuity normal facial motility and strength normal facial sensation I did not get her up to ambulate but she could EXTREMITIES: No cyanosis, edema, joint tenderness or swelling. No deformity. Easily there was no cerebellar dysmetria on [id number] testing with no cerebellar dysmetria on finger-nose [id number] testing while she complained of some loss of facility in the right upper extremity I was not impressed with this although there was a marginal drift of the right arm with eyes closed. Reflexes were hypoactive throughout but present toes were downgoing no Nadrea signs are seen Gross strength testing was normal with no atrophy or fasciculations Sensory examination was checked vibration light touch and temperature The diagnosis remains unclear. This could have been a migraine aura upon awakening in the morning and she states that she will often awaken in the morning with headaches but has never had any symptoms of similar type other than some visual issues when she did not have these on today's event She does have vascular risk factors so at this point I think we have to presume this was a form of transient ischemia and act accordingly by doing the standard diagnostic work-up with CT angiography of the cervical and cranial vessels, 2D echocardiogram and an MRI Treatment I believe should consist of appropriate risk factor management with lipid-lowering agents for management of hypertension, management of any diabetes and a single antiplatelet drug at this point although obviously if we find evidence for a vascular event and dual antiplatelet therapy for 21 days followed by single antiplatelet agent therapy will be the recommendation. Since she was not taking an antiplatelet agent at home I think a single agent at this point is justified I will check back by computer tomorrow to see the results of the MRI and the CT angiography as both studies are being held because of the dye load she received for [address] angiogram. Also reviewed the results of the echocardiogram and w ill either see her here in the hospital or if the studies are negative I will let Dr. Paige know and recommend she be discharged with follow-up in our office in about 4 to 6 weeks There are some loose ends in terms of laboratory studies including an elevated lipase and a troponin these are being addressed by her internal medicine group. Obviously these may delay her discharge her from a neurologic point of view my recommendations above should apply regarding discharge plans and follow-up Trey Trent MD
[2021-02-19] MEDS ORDERED: ATENOLOL 25 MG TABLET PO SCH (21:00)
[2021-02-20] MEDS: HEPARIN SOD 5,000 UNIT/0.5 ML VIAL SQ SCH ×2 (05:46→13:31)
[2021-02-20 06:33] LABS: Hematocrit (blood only) 39.5 % (37-47); Hemoglobin 13.3 g/dL (12.0-16.0); Mean Corpuscular Hemoglobin 28.9 pg (25-34); Mean Corpuscular Hgb Conc 33.7 g/dL (32-36); Mean Corpuscular Volume 85.9 fL (80-100); Mean Platelet Volume 9.5 fL (7.4-10.4); Platelet Count 264 K/uL (130-400); RDW Standard Deviation 43.8 fL (36.4-46.3); White Blood Count 4.99 K/uL (4.8-10.8)
[2021-02-20 07:04] LABS: BUN Creatinine Ratio 23.1 (10-20); Calcium 8.6 mg/dl (8.5-10.1); Creatinine Clr Calc Pharmacy 134.8 ml/min; Est GFR (Non-African American) 103.5 ml/min; Potassium 3.7 mmol/L (3.5-5.1)
--- NOTE | 2021-02-20 07:09 | Hospitalist Progress Note ---
Date of Service February 20, 2021 Assessment & Plan (1) Chest pain: This is a 54yo F with a PMH of obesity, TASNEEM on CPAP, prediabetes, history of migraines and BPPV who presents with lightheadedness, near syncope, right-sided weakness and chest pain starting this morning. Developed CP after breakfast in setting of lightheadedness, and R-sided weakness she woke up with CP substernal with radiation to back, associated with near syncope BP 160s/80s, Piotr negative, EKG without acute ischemic changes CXR IMPRESSION: No active disease in the chest CTA chest no Dissection Given 324mg aspirin and NTG, pain now resolved Cards on case (2) Right sided weakness: Patient c BARTHOLOMEW-Likely atypical Migraine Woke up with lightheadedness, R sided weakness that has improved but not completely resolved CT head wo contrast pending Mild RUE weakness still present on exam MRI brain w/wo con, echo with bubble study, neuro checks, neuro on case (3) Elevated lipase: Lipase 1,028 on admission now 104 CT a/p without evidence of pancreatitis Not clinically consistent with pancreatitis (4) Palpitations: Prescribed Atenolol 25mg BID for this. Denies any history of known arrhythmias or HTN, Patient Bradycardic at times, Decrease Atenolol (5) Prediabetes: A1c 6.3 in 11/13 Repeat a1c still pending (6) Morbid obesity with BMI of 50.0-59.9, adult: A1c, fasting lipid profile pending. Continue counseling on healthy diet and incorporation of exercise (7) Obstructive sleep apnea: CPAP DVT Ppx: SQ heparin Code status: FULL PCP: Miguel Dispo: DC later today if able ROS-+Headache, No Visual Changes, No Nausea, No Vomiting, No Fever, No Chills, No Neck Pain or Stiffness, No Chest Pain, No Palpitations, No SOB, No MALONEY, No Cough, No Sputum, No Wheezing, No Abdominal Pain, No Diarrhea, No Hematemesis, No Hemoptysis, No Unexpected Weight Loss, No Flank pain, No Melena, No Hematochezia, No Frequency, No Urgency, No Burning, No Hematuria, No Rashes, No Diaphoresis. Appetite is Normal Physical Exam Gen-AAO x 3, NAD, Afebrile, Wearing BIPAP Head-NCAT, EOMI, PERRLA, Anicteric Sclera, No Posterior Pharyngeal Erythema Neck-Supple, No JVD, No Thyromegaly, No Masses, No LAD, No Bruits Lungs-Clear to Auscultation Bilaterally, No Rales, No Rhonchi, No Wheezing, No Crepitus Chest-No S4, +S1, +S2, No S3, No Murmurs, No Rubs, No Gallops, No Ectopy Abdomen-Soft, Bowel Sounds Present, Non Tender, Non Distended, No Hepatomegaly, No Splenomegaly, No Palpable Masses, No Rebound, No Rigidity, No Guarding Musculoskeletal-Full Range of Motion Bilaterally, No CVAT Extremities-No Cyanosis, No Clubbing, No Edema Nuero-Cranial Nerves II-XII grossly intact, Motor WNL, DTRs WNL, Strength WNL, Non Focal Psych-Normal Mood Admission and Anticipated Discharge Date Admission Date: February 19, 2021 Results & Data Results & Data ([facility]) Vital Signs (Past 12 Hours) Vital Signs Temp Pulse Pulse Resp BP Pulse Ox 02/20/21 06:59 58 L 02/20/21 03:07 36.4 C L 63 18 113/65 98 02/20/21 02:55 56 L 17 97 02/20/21 00:00 60 02/19/21 23:01 37.0 C 71 19 129/81 97 02/19/21 21:55 70 20 97 02/19/21 19:10 36.8 C 66 17 132/83 95 (1) Chest pain Chest pain type: unspecified Qualified Code(s): R07.9 - Chest pain, unspecified
[2021-02-20] MEDS ORDERED: ASPIRIN 81 MG ECTAB PO SCH (09:00)
[2021-02-20] MEDS ORDERED: ATENOLOL 25 MG TABLET PO SCH ×2 (09:00)
[2021-02-20] MEDS ORDERED: ATORVASTATIN 40 MG TAB PO SCH (09:00)
[2021-02-20] MEDS ORDERED: OPTIRAY 320 125ml IV ONE (09:31)
[2021-02-20] MEDS ORDERED: GADOBUTROL 30ML VIAL IV ONE (09:53)
--- NOTE | 2021-02-20 10:27 | Magnetic Resonance Report ---
MRI OF THE BRAIN COMBO CLINICAL HISTORY: Strokelike symptoms. COMPARISON STUDY: CT of the brain dated 02/19/2021. TECHNIQUE: MRI of the brain was performed utilizing various T1 and T2-weighted sequences in the axial , sagittal, and coronal planes. Contrast-enhanced sequences were acquired following the administratio n of 13.2 cc of Gadavist. FINDINGS: Brain parenchyma: There is minimal microangiopathic change. The brain parenchyma is otherwise normal in appearance. There is no hemorrhage or mass effect. There is no restricted diffusion to suggest acu te ischemia. No enhancing mass lesion is identified on the postcontrast images. Lambert-white matter dif ferentiation is preserved. No extra-axial fluid collection is seen. The cerebellar tonsils are normal in configuration. Ventricles, sulci, and cisterns: Normal in configuration. Pituitary and sella: Unremarkable. Intracranial vasculature: Normal flow voids are maintained at the skull base. Orbits: The bony orbits are grossly intact. Orbital contents are normal in appearance. Sinuses and mastoids: Clear. Calvarium: Unremarkable. Cervical cord: Partially visualized cervical spinal cord is normal in morphology and signal intensity . IMPRESSION: No acute intracranial abnormality. ACT 112: Negative or not required by law. Electronically signed by: Pascual Ly M.D. 02/20/2021 10:26 AM
--- NOTE | 2021-02-20 10:56 | CT Scan Report ---
CT ANGIOGRAM OF THE BRAIN; CT ANGIOGRAM OF THE NECK CLINICAL HISTORY: Strokelike symptoms. COMPARISON STUDY: Unenhanced CT of the brain dated 02/19/2021. MRI of the brain dated 02/20/2021. TECHNIQUE: Following the IV administration of 120 of Optiray 320, CT angiogram of the head and neck w as performed from the aortic arch to the vertex. Images are reviewed in the axial, sagittal, and nav nal planes. 3-D MIPS images are created and assessed. IV contrast was administered without complicati on. All measurements were calculated based on NASCET criteria. A dose lowering technique was utilize d adhering to the principles of ALARA. CT DOSE: 740.12 mGy.cm FINDINGS: Brain parenchyma: The brain parenchyma is normal in appearance. There is no hemorrhage, mass effect, or evidence of acute territorial ischemia by CT criteria. There is no evidence of enhancing mass lesi on on the angiogram phase images. The ventricles, sulci, and cisterns are normal in configuration. Gr ay-white matter differentiation is preserved. No extra-axial fluid collection is seen. Thoracic aorta: Visualized portions of the thoracic aorta are normal in caliber. The aortic arch demo nstrates standard 3-vessel anatomy. Right carotid arterial system: The right common carotid artery is widely patent, as are the right int ernal and external carotid arteries. Left carotid arterial system: The left common carotid artery is widely patent, as are the left international logistics analyst al and external carotid arteries. Vertebral arteries: The vertebral arteries are widely patent bilaterally and codominant. Subclavian arteries: Widely patent bilaterally. Intracranial vasculature: There is origin of the right posterior cerebral artery and a large le ft posterior communicating artery. The internal carotid arteries are patent at the skull base, as are the anterior and middle cerebral arteries bilaterally. The vertebrobasilar system and posterior cere bral arteries are widely patent. The vertebral arteries are codominant. There is no aneurysm, high-gr rita stenosis, or focal vessel cut off seen throughout the intracranial circulation. Jugular veins: Patent bilaterally. Dural sinuses: Patent. Lung apices: Partially visualized upper lobe lung parenchyma appears clear. Soft tissues: The visualized pharyngeal soft tissues are normal in appearance noting angiographic pha se technique. The oropharyngeal airway appears widely patent. The thyroid gland is mildly enlarged an d heterogeneous. A 1.1 cm low-attenuation nodule is noted in the left lobe. The salivary glands are n ormal in appearance. No cervical lymphadenopathy is seen. Skeletal structures: The calvarium appears intact. The cervical spine is maintained noting mild multi level spondylosis. No lytic or blastic lesion is seen. Orbits: The bony orbits are intact. Orbital contents are normal as visualized. Sinuses and mastoids: The paranasal sinuses are clear. The mastoid air cells are well pneumatized. IMPRESSION: 1. There is no evidence of hemorrhage, mass effect, or acute territorial ischemia noting angiographic phase technique. 2. Unremarkable CT angiogram of the brain. 3. Unremarkable CT angiogram of the neck. ACT 112: Negative or not required by law. Electronically signed by: Pascual Ly M.D. 02/20/2021 10:55 AM
[2021-02-20] MEDS: SODIUM CHLORIDE 0.9% 1000ML 1,000 ML IV SCH (11:03)
--- NOTE | 2021-02-20 13:37 | Cardiology Consultation ---
Date of Consultation February 20, 2021 Assessment & Plan (1) Chest pain: Patient is a 55-year-old female with multiple vascular risk factors including labile hypertension, borderline hyperglycemia, low HDL dyslipidemia, familial history of premature vascular disease who presents with symptoms of both neurologic origin as well as chest pressure pain. Initial cardiac evaluations have been revealed no acute findings of ischemia or injury. Patient significantly hypertensive on presentation and raising concerns regarding hypertensive urgency as etiology of complaint Recommendations: Discussed findings in detail with patient. No signs of acute coronary syndrome. Would treat with optimal medical regimen for both cardiac and neurologic benefit. This should include beta-nasrin ANA inhibitor and statin as well as antiplatelet therapy. Would not pursue cardiac catheterization at this time in the absence of any objective evidence of ischemia and recent neurologic event Consider stress testing in 4 to 6 weeks (2) Right sided weakness: (3) Hypertensive urgency: (4) Obstructive sleep apnea: (5) Morbid obesity with BMI of 50.0-59.9, adult: (6) Sleep apnea: History of Present Illness Reason for Consultation: Chest pain, right-sided weakness Requesting Physician: Julian Paige DO Attending Physician: Julian Paige DO History of Present Illness Patient is a 55-year-old female with ongoing issues which include 1. Morbid obesity 2. Obstructive sleep apnea on CPAP and oxygen supplementation 3. Hypertension 4. Low HDL dyslipidemia 5. Hyperglycemia Patient presents day of admission noting having developed symptoms of weakness fatigue followed by right leg and right arm weakness and gait instability. Symptoms culminated with additional complaints of chest pressure radiating to her right shoulder and back. She presented to the ER for further evaluation. Patient significantly hypertensive on presentation. Patient was given aspirin and sublingual nitroglycerin with easing of chest pressure symptoms over approximately 1 hour duration per patient description. She denies any prior history of cardiac disease. Notes no history of rheumatic fever scarlet fever renal or hepatic disease. Notes no fevers chills or unexplained infections. Notes no bleeding difficulties. Notes blood pressures have been labile in the past. Appetite and weight have been stable. Neurologic evaluation in process but not yielding at this point. Patient notes arm weakness has improved somewhat attempting to geovani today where she was unable to do so yesterday Cardiac evaluation to date is notable for no evidence of acute injury or ischemia with negative troponin, normal EKG and normal echocardiogram. Patient does carry a familial history of premature coronary disease in father and low HDL dyslipidemia with multiple risk factors as noted above Allergies Allergy/AdvReac Type Severity Reaction Status Date / Time Penicillins Allergy Intermediate HIVES Verified 02/19/21 11:24 Sulfa (Sulfonamide Allergy Intermediate HIVES Verified 02/19/21 11:24 Antibiotics) shellfish derived Allergy Mild Vomiting Verified 02/19/21 11:24 sumatriptan AdvReac Intermediate HALLUCINATI Verified 02/19/21 11:24 ONS Home Medications Medication Instructions Recorded Confirmed Type atenolol 25 mg PO BID 12/12/18 02/19/21 History Patient History Medical History Diverticulitis History of anesthesia reaction difficulty waking Migraine Morbid obesity with BMI of 50.0-59.9, adult Ovarian cyst Palpitations Prediabetes Sleep apnea cpap with 2L O2 Surgical History History of bowel resection (~02/2019) d/t severe diverticulitis/abcess @ [facility] 02/2019--also removed left ovary at same time History of colonoscopy with polypectomy History of dilatation and curettage History of tonsillectomy Previous section Previous section x3 S/P cholecystectomy S/P tubal ligation Status post left oophorectomy (~02/2019) Family History Mother Family history of diabetes mellitus Family history of stomach cancer Other No family history of adverse response to anesthesia No pertinent family history Social History Smoking Status: Never smoker Second Hand Exposure: Yes (parents smoked); Hx Alcohol Use: Yes Alcohol type: wine and hard liquor Hx Substance Use: No Preferred Language: Micronesian Communication Ability: Effective Child Care Required: No Beliefs That Will Affect Care: None marital status: Current Living Situation: Spouse and Family Current Living Situation Comment: Lives with , children and grandchildren current occupational status: employed Other Information That Helps Us Care for You: No Feels Safe at Home: Yes Safety Concerns: Feels Safe At This Time Assistive Devices: CPAP and Glasses Review of Systems Review of Systems: All systems reviewed & are unremarkable except as noted in HPI & below Physical Exam Constitutional: WD/WN, vitals as above + morbidly obese; no acute distress Eyes: PERRL, conjunctivae normal, anicteric sclerae ENMT: external ear and nose normal, oropharynx normal Neck: trachea midline, no thyromegaly Respiratory: normal respiratory effort, lungs clear to auscultation Cardiovascular: Rate/Rhythm: regular rate and regular rhythm Heart Sounds: normal S1 and normal S2; no gallop and no murmur Palpation: normal PMI Vessels: normal carotid upstroke and radial pulses present; no JVD and no carotid bruit Extremities: no edema Gastrointestinal (Abdomen): normal bowel sounds, soft, nontender, no hepatosplenomegaly Musculoskeletal: no cyanosis or clubbing, extremities motor strength 5/5 Skin: no rashes, warm and dry Neurologic: PERRL, EOMI, accommodation nl, no face palsy, no dysarthria Psychiatric: A+Ox3, euthymic affect Results & Data ([facility]) Vital Signs (Past 12 Hours) Vital Signs Temp Pulse Pulse Resp BP Pulse Ox 02/20/21 11:51 36.4 C L 68 19 142/74 H 93 02/20/21 08:15 36.6 C 65 18 133/79 95 02/20/21 06:59 58 L 02/20/21 03:07 36.4 C L 63 18 113/65 98 02/20/21 02:55 56 L 17 97 Laboratory Results Laboratory Results - last 24 hr 02/19/21 02/19/21 02/20/21 16:58 22:55 06:01 WBC 4.99 RBC 4.60 Hgb 13.3 Hct 39.5 MCV 85.9 MCH 28.9 MCHC 33.7 RDW Std Deviation 43.8 RDW Coeff of Barak 14.0 Plt Count 264 MPV 9.5 Sodium Potassium Chloride Carbon Dioxide Anion Gap BUN Creatinine Est Cr Clr Drug Dosing Est GFR ( Amer) Est GFR (Non-Af Amer) BUN/Creatinine Ratio Glucose Estimat Average Glucose Hemoglobin A1c Calcium Troponin I < 0.015 < 0.015 Triglycerides Cholesterol LDL Cholesterol, Calc VLDL Cholesterol, Calc HDL Cholesterol Cholesterol/HDL Ratio Lipase 02/20/21 02/20/21 06:01 06:01 WBC RBC Hgb Hct MCV MCH MCHC RDW Std Deviation RDW Coeff of Barak Plt Count MPV Sodium 141 Potassium 3.7 Chloride 111 H Carbon Dioxide 28 Anion Gap 2.0 L BUN 14 Creatinine 0.61 Est Cr Clr Drug Dosing 134.8 Est GFR ( Amer) 120.0 Est GFR (Non-Af Amer) 103.5 BUN/Creatinine Ratio 23.1 H Glucose 97 Estimat Average Glucose Pending Hemoglobin A1c Pending Calcium 8.6 Troponin I Triglycerides 165 H Cholesterol 185 LDL Cholesterol, Calc 125 VLDL Cholesterol, Calc 33 HDL Cholesterol 27 Cholesterol/HDL Ratio 7 Lipase 104 ECG Additional Comments: 20-FEB-2021 05:43:31 [facility]MED[facility] ROUTINE RETRIEVAL Sinus bradycardia Otherwise normal ECG When compared with ECG of 19-FEB-2021 11:04, (unconfirmed) QT has lengthened (1) Chest pain Chest pain type: unspecified Qualified Code(s): R07.9 - Chest pain, unspecified
--- NOTE | 2021-02-20 14:29 | Discharge Summary ---
Date of Service February 20, 2021 Admission HPI Per Admitting Provider This is a 54yo F with a PMH of obesity, TASNEEM on CPAP, prediabetes, history of migraines and BPPV who presents with lightheadedness, near syncope, right-sided weakness and chest pain starting this morning. Patient went to bed in normal state of health but woke up this morning feeling dizzy and weak on her right side. Was able to ambulate without issue. Denies any difficulty speaking or swallowing or facial droop. Was able to move right upper extremity but it was slower than usual, per . They decided she should eat breakfast to see if symptoms would resolve. After eating, she was walking in the kitchen when she experienced sudden onset 8/10 sharp substernal chest pain that radiated to her back and R shoulder blade, as well as continue feeling of weakness down right arm. Episode was associated with headache, diaphoresis and nausea. Improved once she sat down to rest. brought her in for further evaluation. Denies any personal history of stroke or heart disease. Diagnosed with prediabetes back in October 2019 with A1c of 6.3. Takes atenolol twice a day for history of heart palpitations but denies any known history of arrhythmias. Received nitroglycerin upon arrival with resolution of chest discomfort. Still has mild headache as well as slight feeling of weakness in right side, albeit much improved from this morning. Denies any fever, chills, lightheadedness, palpitations, shortness of breath, wheezing, nausea, vomiting, abdominal pain, dysuria, diarrhea constipation. Admission Exam Per Admitting Provider ROS-+Headache, No Visual Changes, No Nausea, No Vomiting, No Fever, No Chills, No Neck Pain or Stiffness, No Chest Pain, No Palpitations, No SOB, No MALONEY, No Cough, No Sputum, No Wheezing, No Abdominal Pain, No Diarrhea, No Hematemesis, No Hemoptysis, No Unexpected Weight Loss, No Flank pain, No Melena, No Hematochezia, No Frequency, No Urgency, No Burning, No Hematuria, No Rashes, No Diaphoresis. Appetite is Normal, +RUE weakness Physical Exam Gen-AAO x 3, NAD, Afebrile, obese Head-NCAT, EOMI, PERRLA, Anicteric Sclera, No Posterior Pharyngeal Erythema Neck-Supple, No JVD, No Thyromegaly, No Masses, No LAD, No Bruits Lungs-Clear to Auscultation Bilaterally, No Rales, No Rhonchi, No Wheezing, No Crepitus Chest-No S4, +S1, +S2, No S3, No Murmurs, No Rubs, No Gallops, No Ectopy Abdomen-Soft, Bowel Sounds Present, Non Tender, Non Distended, No Hepatomegaly, No Splenomegaly, No Palpable Masses, No Rebound, No Rigidity, No Guarding Musculoskeletal-Full Range of Motion Bilaterally, No CVAT Extremities-No Cyanosis, No Clubbing, No Edema Nuero-Cranial Nerves II-XII grossly intact, weak RUE Psych-Normal Mood Principal Diagnosis Atypical Migraine Chest Pain Elevated lipase: Palpitations: Prediabetes: Morbid obesity with BMI of 50.0-59.9, adult: Obstructive sleep apnea: Discharge Exam ROS-+Headache, No Visual Changes, No Nausea, No Vomiting, No Fever, No Chills, No Neck Pain or Stiffness, No Chest Pain, No Palpitations, No SOB, No MALONEY, No Cough, No Sputum, No Wheezing, No Abdominal Pain, No Diarrhea, No Hematemesis, No Hemoptysis, No Unexpected Weight Loss, No Flank pain, No Melena, No Hematochezia, No Frequency, No Urgency, No Burning, No Hematuria, No Rashes, No Diaphoresis. Appetite is Normal Physical Exam Gen-AAO x 3, NAD, Afebrile, obese Head-NCAT, EOMI, PERRLA, Anicteric Sclera, No Posterior Pharyngeal Erythema Neck-Supple, No JVD, No Thyromegaly, No Masses, No LAD, No Bruits Lungs-Clear to Auscultation Bilaterally, No Rales, No Rhonchi, No Wheezing, No Crepitus Chest-No S4, +S1, +S2, No S3, No Murmurs, No Rubs, No Gallops, No Ectopy Abdomen-Soft, Bowel Sounds Present, Non Tender, Non Distended, No Hepatomegaly, No Splenomegaly, No Palpable Masses, No Rebound, No Rigidity, No Guarding Musculoskeletal-Full Range of Motion Bilaterally, No CVAT Extremities-No Cyanosis, No Clubbing, No Edema Nuero-Cranial Nerves II-XII grossly intact, Motor WNL, DTRs WNL, Strength WNL, Non Focal Psych-Normal Mood Discharge Data Allergies Allergy/AdvReac Type Severity Reaction Status Date / Time Penicillins Allergy Intermediate HIVES Verified 02/19/21 11:24 Sulfa (Sulfonamide Allergy Intermediate HIVES Verified 02/19/21 11:24 Antibiotics) shellfish derived Allergy Mild Vomiting Verified 02/19/21 11:24 sumatriptan AdvReac Intermediate HALLUCINATI Verified 02/19/21 11:24 ONS Consultations 02/19/21 12:16 ED Decision to Admit Stat 02/19/21 14:27 Consult Neurology Routine 02/20/21 07:19 Consult Cardiology Routine Ordered Studies 02/19/21 11:38 CT abd pelvis IV con only Stat 02/19/21 13:32 CT angio chest dissec wo/w con Stat 02/19/21 13:37 CT head/brain wo con Stat 02/20/21 08:00 CT angio head w con DAILY CT angio neck with con DAILY 02/20/21 09:00 MR brain wo/w con Routine Current Diagnoses Morbid (severe) obesity due to excess calories (02/19/21) Obstructive sleep apnea (adult) (pediatric) (02/19/21) Palpitations (02/19/21) Chest pain, unspecified (02/19/21) Weakness (02/19/21) Prediabetes (02/19/21) Abnormal levels of other serum enzymes (02/19/21) Body mass index [BMI] 50.0-59.9, adult (02/19/21) Allergies Penicillins Allergy (Intermediate, Verified 02/19/21 11:24) HIVES Sulfa (Sulfonamide Antibiotics) Allergy (Intermediate, Verified 02/19/21 11:24) HIVES shellfish derived Allergy (Mild, Verified 02/19/21 11:24) Vomiting sumatriptan Adverse Reaction (Intermediate, Verified 02/19/21 11:24) HALLUCINATIONS Height/Weight/Isolation Height 5 ft Weight 131.9 kg Chemistry 02/19/21 02/20/21 11:10 06:01 Sodium 138 141 Potassium 3.6 3.7 Chloride 106 111 H Carbon Dioxide 30 28 Anion Gap 3.0 2.0 L BUN 16 14 Creatinine 0.78 0.61 Glucose 130 H 97 Hospital Course (1) Chest pain: This is a 54yo F with a PMH of obesity, TASNEEM on CPAP, prediabetes, history of migraines and BPPV who presents with lightheadedness, near syncope, right-sided weakness and chest pain starting this morning. Developed CP after breakfast in setting of lightheadedness, and R-sided weakness she woke up with CP substernal with radiation to back, associated with near syncope BP 160s/80s, Piotr negative, EKG without acute ischemic changes CXR IMPRESSION: No active disease in the chest CTA chest no Dissection Given 324mg aspirin and NTG, pain now resolved Cards on case (2) Right sided weakness: Patient c BARTHOLOMEW-Likely atypical Migraine Woke up with lightheadedness, R sided weakness that has improved but not completely resolved CT head wo contrast pending Mild RUE weakness resolved MRI brain neg, echo with bubble study normal, neuro on case-DC home after Cards w/u, Zio monitor, ASA, Neuro f/u 6 weeks (3) Elevated lipase: Lipase 1,028 on admission now 104 CT a/p without evidence of pancreatitis Not clinically consistent with pancreatitis (4) Palpitations: Prescribed Atenolol 25mg BID for this. Denies any history of known arrhythmias or HTN, Patient Bradycardic at times, Decrease Atenolol (5) Prediabetes: A1c 6.3 in 11/13 Repeat a1c still pending (6) Morbid obesity with BMI of 50.0-59.9, adult: A1c, lipid profile c elev TG. Continue counseling on healthy diet and incorporation of exercise (7) Obstructive sleep apnea: CPAP DVT Ppx: SQ heparin Code status: FULL PCP: Miguel Dispo: DC later today pending cards eval Total Time Total Time Spent Total Time Spent (In Minutes): 45 mins Total Time Includes: Examination of the Patient, Discharge Planning and Medication Reconciliation Discharge Plan Discharge Items Patient Disposition: Home - Self-Care Reason For Visit: CHEST PAIN Discharge Diagnosis: Atypical Migraine Chest Pain Elevated lipase: Palpitations: Prediabetes: Morbid obesity with BMI of 50.0-59.9, adult: Obstructive sleep apnea: Condition on Discharge: Good Activity: Resume your previous activity Lifting: Gradually increase as tolerated Bathing: No limitations Sexual Activity: When tolerated Exercise/Sports: Gradually increase as tolerated Driving/Machine Use: No limitations Weightbearing: Full weightbearing Non-emergency contact: Primary Care Provider, Sales Coach and Neurologist Call non-emergency contact if: you have any medication questions Follow-up/Referrals: Mac Clarke MD [Physician] - (Call for appt) Desirae Rivera, [Primary Care Provider] - Trey Trent MD [Physician] - (6 weeks) Diet: Carb Consistent or DM2 and Heart Healthy Addtl Attending Provider Instructions: Zio monitor requested by Neurology Pending Studies at Discharge: No Stand-Alone Forms: [facility], Sm[facility] Cessation Medications and DC Order Prescriptions: New atorvastatin 40 mg Tablet 40 mg PO QAM Qty: 30 RF: 0 atenolol 25 mg Tablet 12.5 mg PO BID Qty: 60 RF: 0 lisinopril 2.5 mg tablet 2.5 mg PO DAILY Qty: 30 RF: 0 Discontinued atenolol 25 mg tablet 25 mg PO BID RF: 0 Discharge Orders: Discharge Order (Routine); Ordered 02/20/21 Ordered By: Julian Paige Admission Data Admit Date/Time: 02/19/21 12:43 Attending Provider: Julian Paige Admit Provider: Julian Paige Primary Care Provider: Desirae Rivera Other Providers: Julian Paige ; Trey Trent ; Henry Locke ; Min Rod ; Mac Calrke ; Natalio Jesus ; Jhoan Josue ; Dain Carvalho ; Allison Giraldo ; Lilliana Jon ; Zeenat Ann ; Toby Nelson
[2021-02-21 06:57] LABS: Estimated Average Glucose 131 mg/dl; Hemoglobin A1C 6.2 % (4.5-5.6)
--- NOTE | 2021-02-21 13:34 | Electrocardiogram Report ---
Test Reason : Blood Pressure : / mmHG Vent. Rate : 054 BPM Atrial Rate : 054 BPM P-R Int : 180 ms QRS Dur : 078 ms QT Int : 388 ms P-R-T Axes : 053 007 034 degrees QTc Int : 367 ms Poor data quality, interpretation may be adversely affected Sinus bradycardia Low voltage QRS Borderline ECG When compared with ECG of 12-DEC-2018 17:41, No significant change was found Confirmed by Yan West ([id number]) on 02/21/2021 1:34:07 PM Referred By: REFERRED SELF Confirmed By:Yan West
--- NOTE | 2021-02-21 14:06 | Electrocardiogram Report ---
Test Reason : Blood Pressure : / mmHG Vent. Rate : 058 BPM Atrial Rate : 058 BPM P-R Int : 208 ms QRS Dur : 090 ms QT Int : 432 ms P-R-T Axes : 017 006 036 degrees QTc Int : 424 ms Sinus bradycardia Otherwise normal ECG When compared with ECG of 19-FEB-2021 11:04, (unconfirmed) No significant change Confirmed by Yan West ([id number]) on 02/21/2021 2:06:40 PM Referred By: REFERRED SELF Confirmed By:Yan West
== END 2021-02-20 17:56 | disposition home or self-care (01) ==
LOC: EDBD → MERGE 10:53 → 2S 10:53 → ED 10:53 → 2S 14:00

== ENCOUNTER 2021-06-08 04:29 | Observation (INO) ==
[2021-06-08 05:21] LABS: Basophils # (auto) 0.02 K/uL (0-0.2); Basophils % (auto) 0.2 %; Hematocrit (blood only) 44.2 % (37-47); Hemoglobin 15.5 g/dL (12.0-16.0); Immature Granulocytes # (auto) 0.01 K/uL (0.00-0.02); Immature Granulocytes % (auto) 0.1 %; Lymphocytes # (auto) 1.95 K/uL (1.2-3.4); Lymphocytes % (auto) 19.3 %; Mean Corpuscular Hemoglobin 30.1 pg (25-34); Mean Corpuscular Hgb Conc 35.1 g/dL (32-36); Mean Corpuscular Volume 85.8 fL (80-100); Mean Platelet Volume 9.5 fL (7.4-10.4); Monocytes # (auto) 0.76 K/uL (0.11-0.59); Monocytes % (auto) 7.5 %; Neutrophils # (auto) 7.37 K/uL (1.4-6.5); Neutrophils % (auto) 72.9 %; Platelet Count 336 K/uL (130-400); RDW Coefficient of Variation 13.5 % (11.5-14.5); RDW Standard Deviation 42.9 fL (36.4-46.3); Red Blood Count 5.15 M/uL (4.2-5.4); White Blood Count 10.11 K/uL (4.8-10.8)
[2021-06-08] MEDS ORDERED: ONDANSETRON INJ 2 MG/ML 2 ML VIAL IV STA (05:32)
[2021-06-08] MEDS ORDERED: ACETAMINOPHEN 1,000 MG/100 ML VIAL IV STA (05:32)
[2021-06-08] MEDS ORDERED: fentaNYL citrate 100 MCG/2 ML VIAL IV PRN (05:32)
[2021-06-08] MEDS ORDERED: FAMOTIDINE 20MG/5ML IV PUSH IV STA (05:32)
[2021-06-08 05:38] LABS: Alanine Aminotransferase 65 U/L (12-78); Albumin Level 3.5 gm/dl (3.4-5.0); Aspartate Aminotransferase 14 U/L (15-37); BUN Creatinine Ratio 20.3 (10-20); Blood Urea Nitrogen 18 mg/dl (7-18); Calcium 9.8 mg/dl (8.5-10.1); Carbon Dioxide 28 mmol/L (21-32); Chloride 103 mmol/L (98-107); Creatinine Clr Calc Pharmacy 85.9 ml/min; Est GFR (African American) 85.8 ml/min; Glucose 123 mg/dl (70-99); Lipase 175 U/L (73-393); Potassium 3.6 mmol/L (3.5-5.1); Sodium 135 mmol/L (136-145)
[2021-06-08] MEDS: SODIUM CHLORIDE 0.9% 1000ML 1,000 ML IV SCH ×4 (05:41→19:19)
[2021-06-08 05:43] LABS: Albumin Globulin Ratio 0.8 (0.9-2); Alkaline Phosphatase 104 U/L (45-117); Bilirubin,Total 0.7 mg/dl (0.2-1); Globulin 4.3 gm/dl (2.5-4.0); Total Protein 7.8 gm/dl (6.4-8.2); Troponin I < 0.015 ng/ml (0-0.045)
--- NOTE | 2021-06-08 05:55 | Emergency Department Note ---
History of Present Illness General Chief complaint: Abdominal Pain Stated complaint: UPPER ABD PAIN GOING INTO BACK POST PROCEDURE Time Seen by Provider: 06/08/21 04:40 Source: patient Mode of arrival: ambulatory Limitations: no limitations History of Present Illness Provider complaint: abdominal pain Onset (ago): day(s) 4 Location: abdomen Radiation: back Severity: moderate Maximum Pain Intensity: 6 Quality: + constant Relieved By: + none Exacerbated By: + eating and + movement Associated symptoms: + fever/chills, + loss of appetite and + nausea/vomiting Treatments prior to arrival: none This is a 55-year-old female presents emergency department complaining of epigastric pain. Patient states she has had pain since before her ERCP on Sunday, however was worse postprocedure. She states initially she thought this was just a healing process postprocedural, however the pain has been constant and is worsening. States the pain is mostly epigastric but radiates around her right ribs into her back. Patient has previously had a cholecystectomy. She states during her ERCP a stone was removed and a stent was placed. She states pain has been constant, at times mildly improved with certain positions however this is not consistent. She states pain is definitively worse with eating and also makes her nauseated. She states while she has been nauseated she has not had any vomiting. No change in bowel movements, no change in urine. She states on Sunday evening she had a temperature of 99, no other fevers or chills. Pt seen during a time of high acuity and national emergency pandemic while wearing PPE. Home Medications Medication Instructions Recorded Confirmed Type atenolol 25 mg tablet 12.5 mg PO BID #60 tab 02/20/21 06/08/21 Rx atorvastatin 40 mg tablet 40 mg PO QAM #30 tab 02/20/21 06/08/21 Rx Magnesium Otc 1 tab PO HS 05/24/21 06/08/21 History aspirin 81 mg tablet,delayed 81 mg PO QAM 05/24/21 06/08/21 History release lactobacillus combination no.4 3 3,000 mmu cells PO QAM 05/24/21 06/08/21 History billion cell capsule (Probiotic) lisinopril 2.5 mg tablet 2.5 mg PO QAM 05/24/21 06/08/21 History multivitamin 1 tab PO QAM 05/24/21 06/08/21 History oxycodone-acetaminophen 5 mg-325 1 tab PO Q4H PRN #5 tab 06/10/21 Rx mg tablet (Percocet) Allergies Allergy/AdvReac Type Severity Reaction Status Date / Time Penicillins Allergy Intermediate HIVES Verified 06/08/21 07:49 Sulfa (Sulfonamide Allergy Intermediate HIVES Verified 06/08/21 07:49 Antibiotics) shellfish derived Allergy Mild Vomiting Verified 06/08/21 07:49 sumatriptan AdvReac Intermediate HALLUCINATI Verified 06/08/21 07:49 ONS Past Med/Surg History Medical History (Updated 06/08/21 @ 10:21 by Aleisha Garcia PA-C) Chest pain 02/19/21- ADMITTED TO [facility] WITH LIGHTHEADEDNESS, NEAR SYNCOPE, RIGHT SIDED WEAKNESS AND CHEST PAIN- NO SIGNS OF MYOCARDIAL ISCHEMIA WHILE ADMITTED- LIKELY ATYPICAL MIGRAINE- STARTED ON ASA AND STATIN. HAS FOLLOWED UP WITH BOTH CARDIO AND NEURO SYMPTOMS THAT REMAIN-MILD SOB, MILD CHEST DISCOMFORT Hyperlipidemia Hypertension Migraine HX Morbid obesity with BMI of 50.0-59.9, adult Palpitations HX Prediabetes DIET MANAGED Hgb A1C 6.2 on 02/20/21 Sleep apnea CPAP SOB (shortness of breath) on exertion Surgical History History of anesthesia reaction difficulty waking History of bowel resection (~02/2019) d/t severe diverticulitis/abcess @ [facility] 02/2019--also removed left ovary at same time History of colonoscopy 2020 History of colonoscopy with polypectomy History of dilatation and curettage History of tonsillectomy Previous section x3 S/P cholecystectomy S/P tubal ligation Status post left oophorectomy (~02/2019) Family History Mother Family history of diabetes mellitus Family history of stomach cancer Other No family history of adverse response to anesthesia No pertinent family history Social History Smoking Status: Never smoker Second Hand Exposure: Yes ( A CHILD); Hx Alcohol Use: Yes Alcohol type: wine Hx Substance Use: No Preferred Language: Maltese Communication Ability: Effective 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 Required: No Beliefs That Will Affect Care: None marital status: Current Living Situation: Family Current Living Situation Comment: Lives with , children current occupational status: employed current occupation: [employer] Other Information That Helps Us Care for You: No Feels Safe at Home: Yes Safety Concerns: Feels Safe At This Time Assistive Devices: Glasses Review of Systems A total of 10 systems reviewed and were otherwise negative All systems reviewed & are unremarkable except as noted in HPI & below Physical Exam Vital Signs Vital Signs - 24 hr 06/08/21 04:31 06/08/21 06:27 Temperature 36.4 C L Temperature Source Temporal Artery Scan Pulse Rate 79 Pulse Rate [Apical] 63 Respiratory Rate 22 16 Respiratory Effort / Characteristics Non-Labored Spontaneous Non-Labored Spontaneous Respiratory Depth Normal Normal Blood Pressure 157/92 H Blood Pressure [Left Arm] 120/70 Blood Pressure Mean 113 Blood Pressure Mean [Left Arm] 86 Blood Pressure Position [Left Arm] Lying Pulse Oximetry 96 95 Oxygen Delivery Method Room Air Room Air Sepsis New/Unexplained Change in Mental Status N/A Sepsis Action Taken by Nursing No Action Required GENERAL: alert, well appearing, well nourished, no distress, non-toxic, BMI>50 EYE EXAM: normal conjunctiva, PERRL and EOM's grossly intact OROPHARYNX: no exudate, no erythema, lips, buccal mucosa, and tongue normal and mucous membranes are moist NECK: supple, no nuchal rigidity, no adenopathy, non-tender LUNGS: Clear to auscultation. Normal chest wall mechanics, no w/r/r HEART: no murmurs, S1 normal and S2 normal ABDOMEN: abdomen soft, non-tender, normo-active bowel sounds, no masses, no rebound or guarding. BACK: Back is symmetrical on inspection and there is no deformity, no midline tenderness, no CVA tenderness. SKIN: no rashes and no bruising UPPER EXTREMITIES: upper extremities are grossly normal. FROM, nml pulses b/l. LOWER EXTREMITIES: No pitting edema. FROM, nml pulses b/l. NEURO EXAM: Normal sensorium, cranial nerves II-XII grossly intact, normal speech, no gross weakness of arms, no gross weakness of legs. Gross sensation intact. Course Course 0750: Pt updated on delay in CT read. States pain was improved but now starting to return. 08: Pt updated on CT results. 810: Discussed Laura Everett NP with GI. She will check with Dr. Pastrana who performed the ERCP and call back. She feel's pt likely just needs to be observed and kept on IVF. Administered Medications Discontinued Medications Acetaminophen (Acetaminophen 325 Mg Tab) 650 mg PO Q4H PRN PRN Reason: Moderate Pain Stop: 07/08/21 12:45 Last Admin: 06/09/21 21:23 Dose: 650 mg Documented by: [id number] Admin: 06/09/21 16:59 Dose: 650 mg Documented by: [id number] Hydrox/Mg Hydrox/Simethicone (Gi Cocktail Ed Use) 1 dose PO ONE ONE Stop: 06/08/21 08:03 Last Admin: 06/08/21 08:22 Dose: Not Given Documented by: [id number] Atenolol (Atenolol 25 Mg Tablet) 12.5 mg PO BID DEBBIE Stop: 07/08/21 10:15 Last Admin: 06/10/21 08:09 Dose: 12.5 mg Documented by: [id number] Admin: 06/09/21 21:26 Dose: 12.5 mg Documented by: [id number] Admin: 06/09/21 09:26 Dose: 12.5 mg Documented by: [id number] Admin: 06/08/21 20:54 Dose: 12.5 mg Documented by: [id number] Admin: 06/08/21 11:13 Dose: Not Given Documented by: [id number] Atorvastatin Calcium (Atorvastatin 40 Mg Tab) 40 mg PO QAM DEBBIE Stop: 07/09/21 08:59 Last Admin: 06/10/21 08:09 Dose: 40 mg Documented by: [id number] Admin: 06/09/21 09:26 Dose: 40 mg Documented by: [id number] Dicyclomine HCl (Dicyclomine Hcl 10 Mg Cap) 10 mg PO NOW ONE Stop: 06/08/21 08:03 Last Admin: 06/08/21 08:22 Dose: Not Given Documented by: [id number] Famotidine (Famotidine 20mg/5ml Iv Push) 20 mg IV ONE STA Stop: 06/08/21 05:33 Last Admin: 06/08/21 05:41 Dose: 20 mg Documented by: [id number] Sodium Chloride (Nss 1000ml) 1,000 mls @ 125 mls/hr IV .Q8H DEBBIE Stop: 07/08/21 04:59 Last Infusion: 06/09/21 23:29 Dose: 0 mls/hr Documented by: [id number] Admin: 06/09/21 21:24 Dose: 125 mls/hr Documented by: [id number] Infusion: 06/09/21 21:24 Dose: 125 mls/hr Documented by: [id number] Admin: 06/09/21 13:54 Dose: 125 mls/hr Documented by: [id number] Infusion: 06/09/21 10:53 Dose: 0 mls/hr Documented by: [id number] Admin: 06/09/21 03:03 Dose: 125 mls/hr Documented by: [id number] Infusion: 06/09/21 03:03 Dose: 125 mls/hr Documented by: [id number] Admin: 06/08/21 19:19 Dose: 125 mls/hr Documented by: [id number] Infusion: 06/08/21 19:19 Dose: 125 mls/hr Documented by: [id number] Admin: 06/08/21 14:10 Dose: 125 mls/hr Documented by: [id number] Infusion: 06/08/21 13:41 Dose: 125 mls/hr Documented by: [id number] Admin: 06/08/21 05:41 Dose: 125 mls/hr Documented by: [id number] Acetaminophen (Ofirmev) 1,000 mg in 100 mls @ 400 mls/hr IV NOW STA Stop: 06/08/21 05:46 Last Infusion: 06/08/21 06:03 Dose: 0 mls/hr Documented by: [id number] Admin: 06/08/21 05:43 Dose: 400 mls/hr Documented by: [id number] Sodium Chloride (Nss 1000ml) 1,000 mls @ 200 mls/hr IV .Q5H DEBBIE Stop: 07/08/21 12:45 Last Admin: 06/10/21 09:26 Dose: 200 mls/hr Documented by: [id number] Infusion: 06/10/21 09:26 Dose: 200 mls/hr Documented by: [id number] Admin: 06/10/21 04:35 Dose: 200 mls/hr Documented by: [id number] Infusion: 06/10/21 04:35 Dose: 200 mls/hr Documented by: [id number] Admin: 06/10/21 00:50 Dose: 200 mls/hr Documented by: [id number] Admin: 06/09/21 21:24 Dose: Not Given Documented by: [id number] Admin: 06/09/21 13:53 Dose: Not Given Documented by: [id number] Admin: 06/09/21 10:17 Dose: Not Given Documented by: [id number] Admin: 06/09/21 03:08 Dose: Not Given Documented by: [id number] Admin: 06/08/21 14:10 Dose: Not Given Documented by: [id number] Sodium Chloride (Nss) 500 mls @ 500 mls/hr IV .Q1H DEBBIE Stop: 06/10/21 00:29 Last Infusion: 06/10/21 00:47 Dose: 0 mls/hr Documented by: [id number] Admin: 06/09/21 23:40 Dose: 500 mls/hr Documented by: [id number] Potassium Phosphate 9 mmol/ (Sodium Chloride) 253 mls @ 168 mls/hr IV TODAY@0900 ONE Stop: 06/10/21 10:30 Last Infusion: 06/10/21 11:01 Dose: 0 mls/hr Documented by: [id number] Admin: 06/10/21 09:26 Dose: 168 mls/hr Documented by: [id number] Ioversol (Optiray 320 100ml) 100 ml IV ONCE ONE Stop: 06/08/21 06:24 Last Admin: 06/08/21 06:23 Dose: 94 ml Documented by: [id number] Ketorolac Tromethamine (Ketorolac Tromethamine 15 Mg/Ml Vial) 10 mg IV NOW ONE Stop: 06/08/21 08:03 Last Admin: 06/08/21 09:40 Dose: 10 mg Documented by: [id number] Lisinopril (Lisinopril 2.5 Mg Tab) 2.5 mg PO QAM [facility] Stop: 07/08/21 10:15 Last Admin: 06/10/21 08:09 Dose: 2.5 mg Documented by: [id number] Admin: 06/09/21 09:25 Dose: 2.5 mg Documented by: [id number] Admin: 06/08/21 11:13 Dose: Not Given Documented by: [id number] Magnesium Oxide (Magnesium Oxide 400 Mg Tab) 400 mg PO HS [facility] Stop: 07/08/21 20:59 Last Admin: 06/09/21 21:25 Dose: 400 mg Documented by: [id number] Admin: 06/08/21 20:54 Dose: 400 mg Documented by: [id number] Morphine Sulfate (Morphine Sulfate 4 Mg/Ml 1 Ml Carp\Vial) 4 mg IV NOW STA Stop: 06/08/21 09:28 Last Admin: 06/08/21 09:41 Dose: 4 mg Documented by: [id number] Morphine Sulfate (Morphine Sulfate 4 Mg/Ml 1 Ml Carp\Vial) 4 mg IV Q4H PRN PRN Reason: Pain Stop: 06/22/21 12:45 Last Admin: 06/09/21 10:19 Dose: 4 mg Documented by: [id number] Admin: 06/08/21 22:00 Dose: 4 mg Documented by: [id number] Admin: 06/08/21 14:10 Dose: 4 mg Documented by: [id number] Multivitamins (Multivitamin Tab) 1 tab PO QAM [facility] Stop: 07/09/21 08:59 Last Admin: 06/10/21 08:09 Dose: 1 tab Documented by: [id number] Admin: 06/09/21 09:25 Dose: 1 tab Documented by: [id number] Ondansetron HCl (Ondansetron Inj 2 Mg/Ml 2 Ml Vial) 4 mg IV NOW STA Stop: 06/08/21 05:33 Last Admin: 06/08/21 05:41 Dose: 4 mg Documented by: [id number] Ondansetron HCl (Ondansetron Inj 2 Mg/Ml 2 Ml Vial) 4 mg IV Q4H PRN PRN Reason: Nausea And Vomiting Stop: 07/08/21 12:45 Last Admin: 06/08/21 20:57 Dose: 4 mg Documented by: [id number] Polyethylene Glycol (Polyethylene (Miralax) 17 Gm Pack) 17 gm PO DAILY PRN PRN Reason: Constipation Stop: 07/08/21 12:45 Last Admin: 06/09/21 19:22 Dose: 17 gm Documented by: [id number] Potassium Phosphate (Pot Phosphate Monobasic W/ Sod Tab) 2 tab PO QID [facility] Stop: 07/10/21 08:59 Last Admin: 06/10/21 13:15 Dose: 2 tab Documented by: [id number] Admin: 06/10/21 09:26 Dose: 2 tab Documented by: [id number] Medical Decision Making Differential Diagnosis Differential diagnoses includes but is not limited to gastritis, peptic ulcer disease, GERD, gallbladder disease, pancreatitis, small bowel obstruction, acute coronary syndrome, pericarditis, ischemic bowel, irritable bowel disease, irritable bowel syndrome, appendicitis, diverticulitis, malignancy, hernia, urinary tract infection, torsion, [/ectopic (if female)], perforation, trauma, infectious. Medical Records Attestation: I reviewed the patient's medical records. Home Medications Current Medication List: was personally reviewed by me Laboratory Data Attestation: I reviewed the patient's lab results. Result diagrams: 06/10/21 05:37 06/10/21 05:37 Lab Results 06/08/21 06/08/21 06/08/21 Range/Units 05:10 05:10 05:10 WBC 10.11 (4.8-10.8) K/uL RBC 5.15 (4.2-5.4) M/uL Hgb 15.5 (12.0-16.0) g/dL Hct 44.2 (37-47) % MCV 85.8 (80-100) fL MCH 30.1 (25-34) pg MCHC 35.1 (32-36) g/dL RDW Std Deviation 42.9 (36.4-46.3) fL RDW Coeff of Barak 13.5 (11.5-14.5) % Plt Count 336 (130-400) K/uL MPV 9.5 (7.4-10.4) fL Immature Gran % (Auto) 0.1 % Neut % (Auto) 72.9 % Lymph % (Auto) 19.3 % [place] % (Auto) 7.5 % Eos % (Auto) 0.0 % Baso % (Auto) 0.2 % Neut # (Auto) 7.37 H (1.4-6.5) K/uL Lymph # (Auto) 1.95 (1.2-3.4) K/uL [place] # (Auto) 0.76 H (0.11-0.59) K/uL Eos # (Auto) 0.00 (0-0.5) K/uL Baso # (Auto) 0.02 (0-0.2) K/uL Immature Gran # (Auto) 0.01 (0.00-0.02) K/uL Sodium 135 L (136-145) mmol/L Potassium 3.6 (3.5-5.1) mmol/L Chloride 103 (98-107) mmol/L Carbon Dioxide 28 (21-32) mmol/L Anion Gap 4.0 (3-11) BUN 18 (7-18) mg/dl Creatinine 0.89 (0.6-1.2) mg/dl Est Cr Clr Drug Dosing 85.9 ml/min Est GFR ( Amer) 85.8 ml/min Est GFR (Non-Af Amer) 74.0 ml/min BUN/Creatinine Ratio 20.3 H (10-20) Glucose 123 H (70-99) mg/dl Lactate 0.9 (0.4-2.0) mmol/L Calcium 9.8 (8.5-10.1) mg/dl Total Bilirubin 0.7 (0.2-1) mg/dl AST 14 L (15-37) U/L ALT 65 (12-78) U/L Alkaline Phosphatase 104 (45-117) U/L Troponin I < 0.015 (0-0.045) ng/ml Total Protein 7.8 (6.4-8.2) gm/dl Albumin 3.5 (3.4-5.0) gm/dl Globulin 4.3 H (2.5-4.0) gm/dl Albumin/Globulin Ratio 0.8 L (0.9-2) Lipase 175 (73-393) U/L COVID-19 Eval Order SARS-CoV-2 (PCR) (Negative) 06/08/21 06/08/21 Range/Units 09:37 09:37 WBC (4.8-10.8) K/uL RBC (4.2-5.4) M/uL Hgb (12.0-16.0) g/dL Hct (37-47) % MCV (80-100) fL MCH (25-34) pg MCHC (32-36) g/dL RDW Std Deviation (36.4-46.3) fL RDW Coeff of Barak (11.5-14.5) % Plt Count (130-400) K/uL MPV (7.4-10.4) fL Immature Gran % (Auto) % Neut % (Auto) % Lymph % (Auto) % [place] % (Auto) % Eos % (Auto) % Baso % (Auto) % Neut # (Auto) (1.4-6.5) K/uL Lymph # (Auto) (1.2-3.4) K/uL [place] # (Auto) (0.11-0.59) K/uL Eos # (Auto) (0-0.5) K/uL Baso # (Auto) (0-0.2) K/uL Immature Gran # (Auto) (0.00-0.02) K/uL Sodium (136-145) mmol/L Potassium (3.5-5.1) mmol/L Chloride (98-107) mmol/L Carbon Dioxide (21-32) mmol/L Anion Gap (3-11) BUN (7-18) mg/dl Creatinine (0.6-1.2) mg/dl Est Cr Clr Drug Dosing ml/min Est GFR ( Amer) ml/min Est GFR (Non-Af Amer) ml/min BUN/Creatinine Ratio (10-20) Glucose (70-99) mg/dl Lactate (0.4-2.0) mmol/L Calcium (8.5-10.1) mg/dl Total Bilirubin (0.2-1) mg/dl AST (15-37) U/L ALT (12-78) U/L Alkaline Phosphatase (45-117) U/L Troponin I (0-0.045) ng/ml Total Protein (6.4-8.2) gm/dl Albumin (3.4-5.0) gm/dl Globulin (2.5-4.0) gm/dl Albumin/Globulin Ratio (0.9-2) Lipase (73-393) U/L COVID-19 Eval Order Covid19 at [facility] SARS-CoV-2 (PCR) NEGATIVE (Negative) Imaging Data Radiologist's Impression: Abdomen/Pelvis CT 06/08/21 05:[address] WITH IV CONTRAST CT DOSE: 1946.67 mGy.cm HISTORY: epigastric pain, s/p ERCP TECHNIQUE: Multiaxial CT images of the abdomen and pelvis were performed following the use of intravenous contrast. A dose lowering technique was utilized adhering to the principles of ALARA. COMPARISON STUDY: Abdomen and pelvis CT 02/19/2021. FINDINGS: Mild subpleural reticulation within the lung bases which is likely chronic. No pneumoperitoneum. No pneumatosis. Degenerative changes again noted within the lumbar spine. Prior cholecystectomy. The liver, spleen, adrenal glands, and left kidney are unremarkable. There is a 5 mm hypodense lesion within the lower pole of the right kidney. This remains stable and likely represents a cyst. No hydronephrosis. The main portal vein is patent. Normal caliber abdominal aorta. Subcentimeter retroperitoneal lymph nodes remain stable and do not meet CT criteria for pathologic involvement. Interval placement of a main pancreatic duct stent which appears in good position. There is mild pe ripancreatic inflammatory change primarily at the pancreatic body this is consistent with a mild acute pancreatitis. No peripancreatic fluid collections identified. No evidence for pancreatic necrosis. No evidence for main pancreatic duct dilatation. The bladder, uterus, bilateral adnexa are within normal limits. Evidence for prior sigmoid anastomosis. No bowel wall thickening or obstruction. The visualized appendix is unremarkable. IMPRESSION: 1. Mild peripancreatic inflammatory change primarily at the pancreatic body consistent with acute pancreatitis. 2. Interval placement of the main pancreatic duct stent which appears in good position. No evidence for pancreatic duct dilatation. 3. No bowel wall thickening or obstruction. 4 prior cholecystectomy. ACT 112: Negative or not required by law. Electronically signed by: Boom Edwards M.D. 06/08/2021 7:59 AM ECG Data Attestation: I personally reviewed and interpreted this ECG as follows: Indication: + abdominal pain Rate (beats per minute): 72 Rhythm: + normal sinus ECG Intervals/blocks: + Normal QRS and + Normal QT ECG [place]: + Normal ECG ST segments: + Normal ST segments MDM Narrative This is a 55 yo female who presents with epigastric pain 4 days post ERCP with removal of stone and placement of pancreatic stent. Patient with ongoing abdominal pain and has been following with GI. Pt afebrile and VS stable in the ER. Labs reassuring including nml LFTs and lipase. Patient given several medications for pain and nausea. CT with mild pancreatitis noted. Case discus sed with [facility] for GI who attempted to contact pt's GI doc who performed the procedure to inquire about any specific directions given no available inpatient beds at the time of her presentation. Patient was hydrated in the ER. GI recommended admission due to persistent symptoms. Patient was improved while treated in the ER. Discussed all results and plan at bedside, pt verbalized understanding and was in agreement. An order was placed for continuous cardiac monitoring. The monitor shows a rate of __70_ with __normal sinus rhythm. Impression & Plan Epigastric abdominal pain, Nausea, Post-ERCP acute pancreatitis Discharge Plan Visit Data Chief Complaint: Abdominal Pain Stated Complaint: UPPER ABD PAIN GOING INTO BACK POST PROCEDURE ED Provider: Jamilah Wells Discharge Problem: Epigastric abdominal pain, Nausea, Post-ERCP acute pancreatitis Patient Disposition: Admitted As Inpatient Condition: Good Discharge Instructions Interventions: ED Discharge Assessment Last Done: 06/08/21 12:30
[2021-06-08] MEDS ORDERED: OPTIRAY 320 100ml IV ONE (06:23)
--- NOTE | 2021-06-08 08:00 | CT Scan Report ---
ABDOMEN AND PELVIS CT WITH IV CONTRAST CT DOSE: 1946.67 mGy.cm HISTORY: epigastric pain, s/p ERCP TECHNIQUE: Multiaxial CT images of the abdomen and pelvis were performed following the use of intrave nous contrast. A dose lowering technique was utilized adhering to the principles of ALARA. COMPARISON STUDY: Abdomen and pelvis CT 02/19/2021. FINDINGS: Mild subpleural reticulation within the lung bases which is likely chronic. No pneumoperito neum. No pneumatosis. Degenerative changes again noted within the lumbar spine. Prior cholecystectomy . The liver, spleen, adrenal glands, and left kidney are unremarkable. There is a 5 mm hypodense lesi on within the lower pole of the right kidney. This remains stable and likely represents a cyst. No hy dronephrosis. The main portal vein is patent. Normal caliber abdominal aorta. Subcentimeter retroperi toneal lymph nodes remain stable and do not meet CT criteria for pathologic involvement. Interval susanne cement of a main pancreatic duct stent which appears in good position. There is mild peripancreatic i nflammatory change primarily at the pancreatic body this is consistent with a mild acute pancreatitis . No peripancreatic fluid collections identified. No evidence for pancreatic necrosis. No evidence fo r main pancreatic duct dilatation. The bladder, uterus, bilateral adnexa are within normal limits. Ev idence for prior sigmoid anastomosis. No bowel wall thickening or obstruction. The visualized appendi x is unremarkable. IMPRESSION: 1. Mild peripancreatic inflammatory change primarily at the pancreatic body consistent with acute torre creatitis. 2. Interval placement of the main pancreatic duct stent which appears in good position. No evidence f or pancreatic duct dilatation. 3. No bowel wall thickening or obstruction. 4 prior cholecystectomy. ACT 112: Negative or not required by law. Electronically signed by: Boom Edwards M.D. 06/08/2021 7:59 AM
[2021-06-08] MEDS ORDERED: KETOROLAC TROMETHAMINE 15 MG/ML VIAL IV ONE (08:02)
[2021-06-08] MEDS ORDERED: GI COCKTAIL ED USE PO ONE (08:02)
[2021-06-08] MEDS ORDERED: DICYCLOMINE HCL 10 MG CAP PO ONE (08:02)
[2021-06-08] MEDS ORDERED: MoRPHine SULFATE 4 MG/ML 1 ML CARP\\VIAL IV STA (09:27)
--- NOTE | 2021-06-08 09:54 | History & Physical Report ---
Date of Service June 08, 2021 Assessment & Plan (1) Post-ERCP acute pancreatitis: Plan: - Admit to med surg - GI consulted - discussed with Laura James - ERCP conducted last Sunday06/03/21 - CT abd/pelvis reviewed as above showing mild inflammation suggestive of acute pancreatitis, ventral pancreatic stent in appropriate position - Continue fluids, NPO, pain control and antiemetics - pt pain is improved now since being in the ER. Attempt PO pain meds so able to dc home with medication if needed. Bowel regimen prn. - Lipase 175 on admission, trend with am labs - No leukocytosis, afebrile - Mild hyponatremia will be corrected with NSS at 125ml/hr while NPO. Follow with am labs. (2) Prediabetes: Plan: - Hx of such, diet and exercise to be encouraged throughout hospital stay and upon discharge - Last A1C = 6.2 on 02/20/21 (3) Hypertension: Plan: - has not taken antihypertensive medications in the past 24 hours due to nausea - will order atenolol and lisinopril to be given now since BP elevated in 140s/80s - Pain control (4) Hyperlipidemia: Plan: - Cont statin therapy (5) Morbid obesity with BMI of 50.0-59.9, adult: Plan: - BMI of 50.7 (6) Sleep apnea: Plan: - Continue CPAP HS DVT ppx: teds, ambulatory CODE: FULL Dispo: From home, likely to remain in the hospital overnight and discharge ahsan orrow pending improvement of pain. History of Present Illness Chief Complaint: abdominal pain, nausea Primary Care Provider: Desirae Rivera, This is a 55-year-old female with PMHx of HTN, HLD, migraine, diabetic with A1c of 6.[address] with BMI of 50.7. Patient underwent ERCP on 06/03/[address] Pastrana. She represents today with increased abdominal pain which has been going on since being for her ERCP last Sunday, however thought it was postprocedural pain. Pain has been worsening and is constant, epigastric and radiates around her right ribs into her back. She reports tolerating some fluids over the past week but that food aggravates her symptoms. Last BM was Sunday, 4 days ago but is passing gas and belching. As per GI, she has been holding aspirin and NSAIDs since her procedure, and has only trialed tylenol at home for pain which has been minimally effective. During the procedure 1 gallstone was removed, and 1 pancreatic stent was placed in the ventral pancreatic duct. Her lipase is not elevated and 175 upon admission. No leukocytosis and afebrile. Noted to be slightly hyponatremic at [address] of the abdomen is showing mild peripancreatic inflammatory change primarily at the pancreatic body consistent with acute pancreatitis. Interval placement of the main pancreatic duct stent which appears in good position. No evidence for pancreatic duct dilatation. She will be admitted for intractable pain. Pain has improved with medication in the ER. Allergies Allergy/AdvReac Type Severity Reaction Status Date / Time Penicillins Allergy Intermediate HIVES Verified 06/08/21 07:49 Sulfa (Sulfonamide Allergy Intermediate HIVES Verified 06/08/21 07:49 Antibiotics) shellfish derived Allergy Mild Vomiting Verified 06/08/21 07:49 sumatriptan AdvReac Intermediate HALLUCINATI Verified 06/08/21 07:49 ONS Home Medications Medication Instructions Recorded Confirmed Type atenolol 25 mg tablet 12.5 mg PO BID #60 tab 02/20/21 06/08/21 Rx atorvastatin 40 mg tablet 40 mg PO QAM #30 tab 02/20/21 06/08/21 Rx Magnesium Otc 1 tab PO HS 05/24/21 06/08/21 History aspirin 81 mg tablet,delayed 81 mg PO QAM 05/24/21 06/08/21 History release lactobacillus combination no.4 3 3,000 mmu cells PO QAM 05/24/21 06/08/21 History billion cell capsule (Probiotic) lisinopril 2.5 mg tablet 2.5 mg PO QAM 05/24/21 06/08/21 History multivitamin 1 tab PO QAM 05/24/21 06/08/21 History Past Med/Surg History Medical History (Updated 06/08/21 @ 10:21 by Aleisha Garcia PA-C) Chest pain 02/19/21- ADMITTED TO [facility] WITH LIGHTHEADEDNESS, NEAR SYNCOPE, RIGHT SIDED WEAKNESS AND CHEST PAIN- NO SIGNS OF MYOCARDIAL ISCHEMIA WHILE ADMITTED- LIKELY ATYPICAL MIGRAINE- STARTED ON ASA AND STATIN. HAS FOLLOWED UP WITH BOTH CARDIO AND NEURO SYMPTOMS THAT REMAIN-MILD SOB, MILD CHEST DISCOMFORT Hyperlipidemia Hypertension Migraine HX Morbid obesity with BMI of 50.0-59.9, adult Palpitations HX Prediabetes DIET MANAGED Hgb A1C 6.2 on 02/20/21 Sleep apnea CPAP SOB (shortness of breath) on exertion Surgical History History of anesthesia reaction difficulty waking History of bowel resection (~02/2019) d/t severe diverticulitis/abcess @ [facility] [place]--also removed left ovary at same time History of colonoscopy 2020 History of colonoscopy with polypectomy History of dilatation and curettage History of tonsillectomy Previous section x3 S/P cholecystectomy S/P tubal ligation Status post left oophorectomy (~02/2019) Family History Mother Family history of diabetes mellitus Family history of stomach cancer Other No family history of adverse response to anesthesia No pertinent family history Social History Smoking Status: Never smoker Second Hand Exposure: Yes ( A CHILD); Hx Alcohol Use: Yes Alcohol type: wine Hx Substance Use: No Preferred Language: Slovenian Communication Ability: Effective Poker Prop Player Required: No Beliefs That Will Affect Care: None marital status: Current Living Situation: Family Current Living Situation Comment: Lives with , children current occupational status: employed current occupation: [employer] Other Information That Helps Us Care for You: No Feels Safe at Home: Yes Safety Concerns: Feels Safe At This Time Assistive Devices: Glasses Review of Systems Review of Systems: Constitutional: No fever, sweats or chills Eyes: No diplopia, no worsening or blurred vision ENT: normal hearing, no trouble swallowing Respiratory: No cough, sputum, dyspnea at rest or on exertion Cardiovascular: No chest pain, tightness or palpitations Abdomen: As per HPI, + epigastric pain, radiation to r side of ribs around to back, +nausea, no vomiting, diarrhea or constipation. Last BM was 4d ago. + flatus. Musculoskeletal: No joint pain, calf pain, swelling Neurologic: No weakness, numbness/tingling, or balance problems Psychiatric: No anxiety or depression Skin: No rash or itch Physical Exam Physical Exam: General: awake, alert, no apparent distress, morbidly obese with BMI of 50.7 Head: Normocephalic, atraumatic ENT: PERRL, EOMI, no pharyngeal exudate, mucous membranes moist Chest: Clear to auscultation, on room air, no adventitious breath sounds Cardiac: Regular rate and rhythm, no murmur, no JVD, normal peripheral pulses, good capillary refill Abdominal: Hypoactive BS x 4 quadrants, soft, nondistended, + tender to light palpation, no rebound or guarding Extremities: Normal inspection, no peripheral edema or erythema, calfs nontender to palpation Psych: Normal mood and affect Neuro: AAO x 3, strength intact bilaterally and rated 5/5, no motor deficits, speech is clear, no peripheral sensory deficits Results & Data Results & Data ([facility]) Vital Signs (Past 12 Hours) Vital Signs Temp Pulse Pulse Resp BP BP Pulse Ox 06/08/21 06:27 63 16 120/70 95 06/08/21 04:31 36.4 C L 79 22 157/92 H 96 Laboratory Results 06/08/21 06/08/21 06/08/21 Range/Units 09:37 09:37 05:10 WBC (4.8-10.8) K/uL RBC (4.2-5.4) M/uL Hgb (12.0-16.0) g/dL Hct (37-47) % MCV (80-100) fL MCH (25-34) pg MCHC (32-36) g/dL RDW Std Deviation (36.4-46.3) fL RDW Coeff of Barak (11.5-14.5) % Plt Count (130-400) K/uL MPV (7.4-10.4) fL Immature Gran % (Auto) % Neut % (Auto) % Lymph % (Auto) % Wetzel % (Auto) % Eos % (Auto) % Baso % (Auto) % Neut # (Auto) (1.4-6.5) K/uL Lymph # (Auto) (1.2-3.4) K/uL Wetzel # (Auto) (0.11-0.59) K/uL Eos # (Auto) (0-0.5) K/uL Baso # (Auto) (0-0.2) K/uL Immature Gran # (Auto) (0.00-0.02) K/uL Sodium 135 L (136-145) mmol/L Potassium 3.6 (3.5-5.1) mmol/L Chloride 103 (98-107) mmol/L Carbon Dioxide 28 (21-32) mmol/L Anion Gap 4.0 (3-11) BUN 18 (7-18) mg/dl Creatinine 0.89 (0.6-1.2) mg/dl Est Cr Clr Drug Dosing 85.9 ml/min Est GFR ( Amer) 85.8 ml/min Est GFR (Non-Af Amer) 74.0 ml/min BUN/Creatinine Ratio 20.3 H (10-20) Glucose 123 H (70-99) mg/dl Lactate (0.4-2.0) mmol/L Calcium 9.8 (8.5-10.1) mg/dl Total Bilirubin 0.7 (0.2-1) mg/dl AST 14 L (15-37) U/L ALT 65 (12-78) U/L Alkaline Phosphatase 104 (45-117) U/L Troponin I < 0.015 (0-0.045) ng/ml Total Protein 7.8 (6.4-8.2) gm/dl Albumin 3.5 (3.4-5.0) gm/dl Globulin 4.3 H (2.5-4.0) gm/dl Albumin/Globulin Ratio 0.8 L (0.9-2) Lipase 175 (73-393) U/L COVID-19 Eval Order Covid19 at [facility] SARS-CoV-2 (PCR) NEGATIVE (Negative) 06/08/21 06/08/21 Range/Units 05:10 05:10 WBC 10.11 (4.8-10.8) K/uL RBC 5.15 (4.2-5.4) M/uL Hgb 15.5 (12.0-16.0) g/dL Hct 44.2 (37-47) % MCV 85.8 (80-100) fL MCH 30.1 (25-34) pg MCHC 35.1 (32-36) g/dL RDW Std Deviation 42.9 (36.4-46.3) fL RDW Coeff of Barak 13.5 (11.5-14.5) % Plt Count 336 (130-400) K/uL MPV 9.5 (7.4-10.4) fL Immature Gran % (Auto) 0.1 % Neut % (Auto) 72.9 % Lymph % (Auto) 19.3 % Wetzel % (Auto) 7.5 % Eos % (Auto) 0.0 % Baso % (Auto) 0.2 % Neut # (Auto) 7.37 H (1.4-6.5) K/uL Lymph # (Auto) 1.95 (1.2-3.4) K/uL Wetzel # (Auto) 0.76 H (0.11-0.59) K/uL Eos # (Auto) 0.00 (0-0.5) K/uL Baso # (Auto) 0.02 (0-0.2) K/uL Immature Gran # (Auto) 0.01 (0.00-0.02) K/uL Sodium (136-145) mmol/L Potassium (3.5-5.1) mmol/L Chloride (98-107) mmol/L Carbon Dioxide (21-32) mmol/L Anion Gap (3-11) BUN (7-18) mg/dl Creatinine (0.6-1.2) mg/dl Est Cr Clr Drug Dosing ml/min Est GFR ( Amer) ml/min Est GFR (Non-Af Amer) ml/min BUN/Creatinine Ratio (10-20) Glucose (70-99) mg/dl Lactate 0.9 (0.4-2.0) mmol/L Calcium (8.5-10.1) mg/dl Total Bilirubin (0.2-1) mg/dl AST (15-37) U/L ALT (12-78) U/L Alkaline Phosphatase (45-117) U/L Troponin I (0-0.045) ng/ml Total Protein (6.4-8.2) gm/dl Albumin (3.4-5.0) gm/dl Globulin (2.5-4.0) gm/dl Albumin/Globulin Ratio (0.9-2) Lipase (73-393) U/L COVID-19 Eval Order SARS-CoV-2 (PCR) (Negative) Diagnostic Findings Abdomen/Pelvis CT 06/08/21 05:[address] WITH IV CONTRAST CT DOSE: 1946.67 mGy.cm HISTORY: epigastric pain, s/p ERCP TECHNIQUE: Multiaxial CT images of the abdomen and pelvis were performed following the use of intravenous contrast. A dose lowering technique was utilized adhering to the principles of ALARA. COMPARISON STUDY: Abdomen and pelvis CT 02/19/2021. FINDINGS: Mild subpleural reticulation within the lung bases which is likely chronic. No pneumoperitoneum. No pneumatosis. Degenerative changes again noted within the lumbar spine. Prior cholecystectomy. The liver, spleen, adrenal glands, and left kidney are unremarkable. There is a 5 mm hypodense lesion within the lower pole of the right kidney. This remains stable and likely represents a cyst. No hydronephrosis. The main portal vein is patent. Normal caliber abdominal aorta. Subcentimeter retroperitoneal lymph nodes remain stable and do not meet CT criteria for pathologic involvement. Interval placement of a main pancreatic duct stent which appears in good position. There is mild peripancreatic inflammatory change primarily at the pancreatic body this is consistent with a mild acute pancreatitis. No peripancreatic fluid collections identified. No evidence for pancreatic necrosis. No evidence for main pancreatic duct dilatation. The bladder, uterus, bilateral adnexa are within normal limits. Evidence for prior sigmoid anastomosis. No bowel wall thickening or obstruction. The visualized appendix is unremarkable. IMPRESSION: 1. Mild peripancreatic inflammatory change primarily at the pancreatic body consistent with acute pancreatitis. 2. Interval placement of the main pancreatic duct stent which appears in good position. No evidence for pancreatic duct dilatation. 3. No bowel wall thickening or obstruction. 4 prior cholecystectomy. ACT 112: Negative or not required by law. Electronically signed by: Boom Edwards M.D. 06/08/2021 7:59 AM ECG Additional Comments: 08-JUN-2021 05:04:55 [facility]-EDSTAT ROUTINE RETRIEVAL Poor data quality, interpretation may be adversely affected Normal sinus rhythm Normal ECG When compared with ECG of 20-FEB-2021 05:43, No significant change was found 25mm/s 10mm/mV 150Hz 9.0.9 12SL 241 LUCILLE: 15 Referred by: REFERRED SELF Unconfirmed Vent. rate 72 BPM CA interval 168 ms QRS duration 80 ms QT/QTc 372/407 ms Code Status & VTE Plan Code Status Full code Supervising Physician Co-Signing Physician Notes Patient seen and examined by ks, care coordinated with Jessica Garcia PA-C, please refer to note above for further detail. Pt is a 55 yo F w/, HLD, migraine, diabetic with A1c of 6.2 TASNEEM, morbid obesity (BMI of 50.7). Patient underwent ERCP on 06/03/2021, but now presents with increased abdominal pain. During the procedure 1 gallstone was removed, and 1 pancreatic stent was placed in the ventral pancreatic duct. Pain is mostly epigastric, radiating to her back, diagnosed with post ERCP pancreatitis, started on IV fluids. Seen by GI. Her lipase is not elevated and 175 upon admission. No leukocytosis and afebrile. CT of the abdomen is showing mild peripancreatic inflammatory change primarily at the pancreatic body consistent with acute pancreatitis Currently patient is lying in bed, in no acute distress. Reports that she received pain medications and now she feels better. She is alert oriented answer questions appropriately. Lungs are clear to auscultation bilaterally with any wheezing rhonchi or crackles. Heart sounds regular. Abdomen is soft, sluggish bowel sounds noted. Tender to palpation in epigastric area. There is no significant lower extremity edema, patient moves extremities spontaneously. Skin is warm dry well-perfused. Currently n.p.o., okay to start clear liquids if patient can tolerate. Continue IV fluids. Continue to closely monitor. Ernesto Silver MD
[2021-06-08] MEDS: ATENOLOL 25 MG TABLET PO SCH ×2 (11:13→20:54)
[2021-06-08] MEDS: lisinopril 2.5 MG TAB PO SCH (11:13)
--- NOTE | 2021-06-08 11:15 | Gastrointestinal Consultation ---
Date of Consultation June 08, 2021 Assessment & Plan (1) Epigastric abdominal pain: 55 year old female with abd pain, nausea, bloating and fevers at home. CT w/ mild peripancreatic inflammatory changes. Had ERCP last week. NPO IV LR 200 mL/hr PO Antiemetics PRN Analgesia PRN If feeling well tonight trial sips/ice chips, if tolerating can advance to clear liquids and then to low fat as tolerated Consider DC home once tolerating dietary advancement Supervising Physician Co-Signing Physician Notes I have seen and examined the patient with RHIANNA Bennett whose note reflects our findings and plan. Recent ERCP. Stone removed and PD stent placed. Patient with pain and nsuae and bloating. Came to ER. Labs OK but CT with mild pancreatitis. NPO, IVF, PRN analgesia and anti-emetics. OK to allow sips of clears later today if pain better. Abd mildly tender diffusely on exam. History of Present Illness Reason for Consultation: abd pain Requesting Physician: Adrianne Attending Physician: Adrianne History of Present Illness 55 year old female admitted with abd pain, bloating, nausea, fevers at home. had ERCP for stone removal and PD stent placement last week. Woke up with mild cramp ing but felt well. Over the weekend, developed abd pain, pressure, bloating and nausea and had fever. Pain persisted sought ED evaluation. CBC good LFTs normal Lipase ok CT w/ Mild peripancreatic inflammatory change primarily at the pancreatic body consistent with acute pancreatitis, interval placement of the main pancreatic duct stent which appears in good position Allergies Allergy/AdvReac Type Severity Reaction Status Date / Time Penicillins Allergy Intermediate HIVES Verified 06/08/21 07:49 Sulfa (Sulfonamide Allergy Intermediate HIVES Verified 06/08/21 07:49 Antibiotics) shellfish derived Allergy Mild Vomiting Verified 06/08/21 07:49 sumatriptan AdvReac Intermediate HALLUCINATI Verified 06/08/21 07:49 ONS Home Medications Medication Instructions Recorded Confirmed Type atenolol 25 mg tablet 12.5 mg PO BID #60 tab 02/20/21 06/08/21 Rx atorvastatin 40 mg tablet 40 mg PO QAM #30 tab 02/20/21 06/08/21 Rx Magnesium Otc 1 tab PO HS 05/24/21 06/08/21 History aspirin 81 mg tablet,delayed 81 mg PO QAM 05/24/21 06/08/21 History release lactobacillus combination no.4 3 3,000 mmu cells PO QAM 05/24/21 06/08/21 History billion cell capsule (Probiotic) lisinopril 2.5 mg tablet 2.5 mg PO QAM 05/24/21 06/08/21 History multivitamin 1 tab PO QAM 05/24/21 06/08/21 History Patient History Medical History (Updated 06/08/21 @ 10:21 by Aleisha Garcia PA-C) Chest pain 02/19/21- ADMITTED TO [facility] WITH LIGHTHEADEDNESS, NEAR SYNCOPE, RIGHT SIDED WEAKNESS AND CHEST PAIN- NO SIGNS OF MYOCARDIAL ISCHEMIA WHILE ADMITTED- LIKELY ATYPICAL MIGRAINE- STARTED ON ASA AND STATIN. HAS FOLLOWED UP WITH BOTH CARDIO AND NEURO SYMPTOMS THAT REMAIN-MILD SOB, MILD CHEST DISCOMFORT Hyperlipidemia Hypertension Migraine HX Morbid obesity with BMI of 50.0-59.9, adult Palpitations HX Prediabetes DIET MANAGED Hgb A1C 6.2 on 02/20/21 Sleep apnea CPAP SOB (shortness of breath) on exertion Surgical History History of anesthesia reaction difficulty waking History of bowel resection (~02/2019) d/t severe diverticulitis/abcess @ [facility] [place] 02/2019--also removed left ovary at same time History of colonoscopy 2020 History of colonoscopy with polypectomy History of dilatation and curettage History of tonsillectomy Previous section x3 S/P cholecystectomy S/P tubal ligation Status post left oophorectomy (~02/2019) Family History Mother Family history of diabetes mellitus Family history of stomach cancer Other No family history of adverse response to anesthesia No pertinent family history Social History Smoking Status: Never smoker Second Hand Exposure: Yes ( A CHILD); Hx Alcohol Use: Yes Alcohol type: wine Hx Substance Use: No Preferred Language: Tamazight Communication Ability: Effective German Instructor Required: No Beliefs That Will Affect Care: None marital status: Current Living Situation: Spouse and Family Current Living Situation Comment: Lives with , children current occupational status: employed current occupation: [employer] Feels Safe at Home: Yes Assistive Devices: CPAP and Glasses Review of Systems Review of Systems: All systems reviewed & are unremarkable except as noted in HPI & below Physical Exam Constitutional: WD/WN, vitals as above Neck: trachea midline, no thyromegaly Respiratory: normal respiratory effort, lungs clear to auscultation Cardiovascular: RRR, no murmur, no edema Gastrointestinal (Abdomen): normal bowel sounds, soft, nontender, no hepatosplenomegaly Results & Data ([facility]) Vital Signs (Past 12 Hours) Vital Signs Temp Pulse Pulse Resp BP BP Pulse Ox 06/08/21 10:00 59 L 18 146/88 H 94 06/08/21 08:00 122/70 06/08/21 06:27 63 16 120/70 95 06/08/21 04:31 36.4 C L 79 22 157/92 H 96 Laboratory Results 06/08/21 06/08/21 06/08/21 Range/Units 09:37 09:37 05:10 WBC (4.8-10.8) K/uL RBC (4.2-5.4) M/uL Hgb (12.0-16.0) g/dL Hct (37-47) % MCV (80-100) fL MCH (25-34) pg MCHC (32-36) g/dL RDW Std Deviation (36.4-46.3) fL RDW Coeff of Barak (11.5-14.5) % Plt Count (130-400) K/uL MPV (7.4-10.4) fL Immature Gran % (Auto) % Neut % (Auto) % Lymph % (Auto) % Hill % (Auto) % Eos % (Auto) % Baso % (Auto) % Neut # (Auto) (1.4-6.5) K/uL Lymph # (Auto) (1.2-3.4) K/uL Hill # (Auto) (0.11-0.59) K/uL Eos # (Auto) (0-0.5) K/uL Baso # (Auto) (0-0.2) K/uL Immature Gran # (Auto) (0.00-0.02) K/uL Sodium 135 L (136-145) mmol/L Potassium 3.6 (3.5-5.1) mmol/L Chloride 103 (98-107) mmol/L Carbon Dioxide 28 (21-32) mmol/L Anion Gap 4.0 (3-11) BUN 18 (7-18) mg/dl Creatinine 0.89 (0.6-1.2) mg/dl Est Cr Clr Drug Dosing 85.9 ml/min Est GFR ( Amer) 85.8 ml/min Est GFR (Non-Af Amer) 74.0 ml/min BUN/Creatinine Ratio 20.3 H (10-20) Glucose 123 H (70-99) mg/dl Lactate (0.4-2.0) mmol/L Calcium 9.8 (8.5-10.1) mg/dl Total Bilirubin 0.7 (0.2-1) mg/dl AST 14 L (15-37) U/L ALT 65 (12-78) U/L Alkaline Phosphatase 104 (45-117) U/L Troponin I < 0.015 (0-0.045) ng/ml Total Protein 7.8 (6.4-8.2) gm/dl Albumin 3.5 (3.4-5.0) gm/dl Globulin 4.3 H (2.5-4.0) gm/dl Albumin/Globulin Ratio 0.8 L (0.9-2) Lipase 175 (73-393) U/L COVID-19 Eval Order Covid19 at [facility] SARS-CoV-2 (PCR) NEGATIVE (Negative) 06/08/21 06/08/21 Range/Units 05:10 05:10 WBC 10.11 (4.8-10.8) K/uL RBC 5.15 (4.2-5.4) M/uL Hgb 15.5 (12.0-16.0) g/dL Hct 44.2 (37-47) % MCV 85.8 (80-100) fL MCH 30.1 (25-34) pg MCHC 35.1 (32-36) g/dL RDW Std Deviation 42.9 (36.4-46.3) fL RDW Coeff of Barak 13.5 (11.5-14.5) % Plt Count 336 (130-400) K/uL MPV 9.5 (7.4-10.4) fL Immature Gran % (Auto) 0.1 % Neut % (Auto) 72.9 % Lymph % (Auto) 19.3 % Hill % (Auto) 7.5 % Eos % (Auto) 0.0 % Baso % (Auto) 0.2 % Neut # (Auto) 7.37 H (1.4-6.5) K/uL Lymph # (Auto) 1.95 (1.2-3.4) K/uL Hill # (Auto) 0.76 H (0.11-0.59) K/uL Eos # (Auto) 0.00 (0-0.5) K/uL Baso # (Auto) 0.02 (0-0.2) K/uL Immature Gran # (Auto) 0.01 (0.00-0.02) K/uL Sodium (136-145) mmol/L Potassium (3.5-5.1) mmol/L Chloride (98-107) mmol/L Carbon Dioxide (21-32) mmol/L Anion Gap (3-11) BUN (7-18) mg/dl Creatinine (0.6-1.2) mg/dl Est Cr Clr Drug Dosing ml/min Est GFR ( Amer) ml/min Est GFR (Non-Af Amer) ml/min BUN/Creatinine Ratio (10-20) Glucose (70-99) mg/dl Lactate 0.9 (0.4-2.0) mmol/L Calcium (8.5-10.1) mg/dl Total Bilirubin (0.2-1) mg/dl AST (15-37) U/L ALT (12-78) U/L Alkaline Phosphatase (45-117) U/L Troponin I (0-0.045) ng/ml Total Protein (6.4-8.2) gm/dl Albumin (3.4-5.0) gm/dl Globulin (2.5-4.0) gm/dl Albumin/Globulin Ratio (0.9-2) Lipase (73-393) U/L COVID-19 Eval Order SARS-CoV-2 (PCR) (Negative)
--- NOTE | 2021-06-08 12:33 | Electrocardiogram Report ---
Test Reason : Blood Pressure : / mmHG Vent. Rate : 072 BPM Atrial Rate : 072 BPM P-R Int : 168 ms QRS Dur : 080 ms QT Int : 372 ms P-R-T Axes : -09 004 013 degrees QTc Int : 407 ms Poor data quality, interpretation may be adversely affected Normal sinus rhythm Normal ECG When compared with ECG of 20-FEB-2021 05:43, No significant change was found Confirmed by Jose Aleman ([id number]) on 06/08/2021 12:33:23 PM Referred By: REFERRED SELF Confirmed By:Jose Aleman
[2021-06-08] MEDS ORDERED: oxyCODONE/ACETAMINOPHEN 5mg/325mg TAB PO PRN (12:46)
[2021-06-08] MEDS ORDERED: POLYETHYLENE (MIRALAX) 17 GM PACK PO PRN (12:46)
[2021-06-08] MEDS ORDERED: ONDANSETRON INJ 2 MG/ML 2 ML VIAL IV PRN (12:46)
[2021-06-08] MEDS: MoRPHine SULFATE 4 MG/ML 1 ML CARP\\VIAL IV PRN ×2 (14:10→22:00)
[2021-06-08] MEDS: MAGNESIUM OXIDE 400 MG TAB PO SCH (20:54)
[2021-06-09] MEDS: SODIUM CHLORIDE 0.9% 1000ML 1,000 ML IV SCH ×7 (03:03→21:24)
[2021-06-09 07:09] LABS: Hematocrit (blood only) 40.5 % (37-47); Hemoglobin 13.9 g/dL (12.0-16.0); Mean Corpuscular Hemoglobin 29.9 pg (25-34); Mean Corpuscular Hgb Conc 34.3 g/dL (32-36); Mean Corpuscular Volume 87.1 fL (80-100); Mean Platelet Volume 9.9 fL (7.4-10.4); Platelet Count 314 K/uL (130-400); RDW Coefficient of Variation 13.9 % (11.5-14.5); RDW Standard Deviation 44.1 fL (36.4-46.3); Red Blood Count 4.65 M/uL (4.2-5.4); White Blood Count 9.27 K/uL (4.8-10.8)
[2021-06-09 07:55] LABS: Albumin Level 2.9 gm/dl (3.4-5.0); Calcium 8.4 mg/dl (8.5-10.1); Creatinine Clr Calc Pharmacy 109.2 ml/min; Est GFR (African American) 114.6 ml/min; Est GFR (Non-African American) 98.9 ml/min; Magnesium 2.1 mg/dl (1.8-2.4); Potassium 3.7 mmol/L (3.5-5.1)
[2021-06-09 07:58] LABS: Albumin Globulin Ratio 0.7 (0.9-2); Bilirubin,Total 0.7 mg/dl (0.2-1); Globulin 3.9 gm/dl (2.5-4.0); Total Protein 6.8 gm/dl (6.4-8.2)
--- NOTE | 2021-06-09 09:21 | Hospitalist Progress Note ---
Date of Service June 09, 2021 Assessment & Plan (1) Post-ERCP acute pancreatitis: Plan: - - GI consulted - ERCP conducted last Sunday06/03/21 - CT abd/pelvis reviewed as above showing mild inflammation suggestive of acute pancreatitis, ventral pancreatic stent in appropriate position - Continue fluids, pain control and antiemetics - now on clear liquids, will try to advance as tolertaed - Attempt PO pain meds so able to dc home with medication if needed. Bowel regimen prn. - Lipase 175 on admission, down this AM - No leukocytosis, afebrile - Mild hyponatremia on admission, monitor give IVF - monitor BMP (2) Prediabetes: Plan: - Hx of such, diet and exercise to be encouraged throughout hospital stay and upon discharge - Last A1C = 6.2 on 02/20/21 (3) Hypertension: Plan: - BP normal - Pain control (4) Hyperlipidemia: Plan: - Cont statin therapy (5) Morbid obesity with BMI of 50.0-59.9, adult: Plan: - BMI of 50.7 - counselling, outpt follow up (6) Sleep apnea: Plan: - Continue CPAP HS DVT ppx: teds, ambulatory CODE: FULL Dispo: From home, likely DC tmrw Admission and Anticipated Discharge Date Admission Date: June 08, 2021 Subjective Patient seen in follow-up of pancreatitis Currently she is sitting up in bed, in no acute distress Currently no fevers, chills, chest pain, shortness of breath Abdominal pain is much improved Able to tolerate liquids, will advance diet Review of Systems Review of Systems: All systems reviewed & are unremarkable except as noted in Subjective Physical Exam Physical Exam: General: morbidly obese F, awake, alert, no apparent distress Head: Normocephalic, atraumatic ENT: PERRL, EOMI, no pharyngeal exudate, mucous membranes moist Chest: Clear to auscultation, on room air, no adventitious breath sounds Cardiac: Regular rate and rhythm, no murmur, no JVD Abdominal: Hypoactive BS x 4 quadrants, soft, nondistended, + tender to light palpation, no rebound or guarding Extremities: Normal inspection, no peripheral edema or erythema, calves nontender to palpation Psych: Normal mood and affect Neuro: AAO x 3, strength intact bilaterally and rated 5/5, no motor deficits, speech is clear, no peripheral sensory deficits Results & Data Results & Data ([facility]) Vital Signs (Past 12 Hours) Vital Signs Temp Pulse Resp BP Pulse Ox 06/09/21 08:35 36.6 C 73 16 128/68 93 06/08/21 22:02 36.8 C 82 16 121/78 95 Laboratory Results 06/09/21 06/09/21 06/08/21 Range/Units 06:04 06:04 09:37 WBC 9.27 (4.8-10.8) K/uL RBC 4.65 (4.2-5.4) M/uL Hgb 13.9 (12.0-16.0) g/dL Hct 40.5 (37-47) % MCV 87.1 (80-100) fL MCH 29.9 (25-34) pg MCHC 34.3 (32-36) g/dL RDW Std Deviation 44.1 (36.4-46.3) fL RDW Coeff of Barak 13.9 (11.5-14.5) % Plt Count 314 (130-400) K/uL MPV 9.9 (7.4-10.4) fL Sodium 139 (136-145) mmol/L Potassium 3.7 (3.5-5.1) mmol/L Chloride 106 (98-107) mmol/L Carbon Dioxide 26 (21-32) mmol/L Anion Gap 7.0 (3-11) BUN 17 (7-18) mg/dl Creatinine 0.70 (0.6-1.2) mg/dl Est Cr Clr Drug Dosing 109.2 ml/min Est GFR ( Amer) 114.6 ml/min Est GFR (Non-Af Amer) 98.9 ml/min BUN/Creatinine Ratio 24.0 H (10-20) Glucose 83 (70-99) mg/dl Calcium 8.4 L (8.5-10.1) mg/dl Phosphorus 3.0 (2.5-4.9) mg/dl Magnesium 2.1 (1.8-2.4) mg/dl Total Bilirubin 0.7 (0.2-1) mg/dl AST 9 L (15-37) U/L ALT 40 (12-78) U/L Alkaline Phosphatase 89 (45-117) U/L Total Protein 6.8 (6.4-8.2) gm/dl Albumin 2.9 L (3.4-5.0) gm/dl Globulin 3.9 (2.5-4.0) gm/dl Albumin/Globulin Ratio 0.7 L (0.9-2) Lipase 123 (73-393) U/L COVID-19 Eval Order SARS-CoV-2 (PCR) NEGATIVE (Negative) 06/08/21 Range/Units 09:37 WBC (4.8-10.8) K/uL RBC (4.2-5.4) M/uL Hgb (12.0-16.0) g/dL Hct (37-47) % MCV (80-100) fL MCH (25-34) pg MCHC (32-36) g/dL RDW Std Deviation (36.4-46.3) fL RDW Coeff of Barak (11.5-14.5) % Plt Count (130-400) K/uL MPV (7.4-10.4) fL Sodium (136-145) mmol/L Potassium (3.5-5.1) mmol/L Chloride (98-107) mmol/L Carbon Dioxide (21-32) mmol/L Anion Gap (3-11) BUN (7-18) mg/dl Creatinine (0.6-1.2) mg/dl Est Cr Clr Drug Dosing ml/min Est GFR ( Amer) ml/min Est GFR (Non-Af Amer) ml/min BUN/Creatinine Ratio (10-20) Glucose (70-99) mg/dl Calcium (8.5-10.1) mg/dl Phosphorus (2.5-4.9) mg/dl Magnesium (1.8-2.4) mg/dl Total Bilirubin (0.2-1) mg/dl AST (15-37) U/L ALT (12-78) U/L Alkaline Phosphatase (45-117) U/L Total Protein (6.4-8.2) gm/dl Albumin (3.4-5.0) gm/dl Globulin (2.5-4.0) gm/dl Albumin/Globulin Ratio (0.9-2) Lipase (73-393) U/L COVID-19 Eval Order Covid19 at [facility] SARS-CoV-2 (PCR) (Negative) Medications Administered Current Inpatient Medications Acetaminophen (Acetaminophen 325 Mg Tab) 650 mg PO Q4H PRN PRN Reason: Moderate Pain Stop: 07/08/21 12:45 Atenolol (Atenolol 25 Mg Tablet) 12.5 mg PO BID [facility] Stop: 07/08/21 10:15 Last Admin: 06/09/21 09:26 Dose: 12.5 mg Documented by: Atorvastatin Calcium (Atorvastatin 40 Mg Tab) 40 [facility] [place] Stop: 07/09/21 08:59 Last Admin: 06/09/21 09:26 Dose: 40 mg Documented by: Sodium Chloride (Nss 1000ml) 1,000 mls @ 125 mls/hr IV .Q8H [facility] Stop: 07/08/21 04:59 Last Admin: 06/09/21 13:54 Dose: 125 mls/hr Documented by: Sodium Chloride (Nss 1000ml) 1,000 mls @ 125 mls/hr IV .Q8H [facility] Stop: 07/08/21 12:45 Last Admin: 06/09/21 13:53 Dose: Not Given Documented by: Lisinopril (Lisinopril 2.5 Mg Tab) 2.5 mg PO QA[facility] [place] Stop: 07/08/21 10:15 Last Admin: 06/09/21 09:25 Dose: 2.5 mg Documented by: Magnesium Oxide (Magnesium Oxide 400 Mg Tab) 400 mg PO [facility] Stop: 07/08/21 20:59 Last Admin: 06/08/21 20:54 Dose: 400 mg Documented by: Morphine Sulfate (Morphine Sulfate 4 Mg/Ml 1 Ml Carp\Vial) 4 mg IV Q4H PRN PRN Reason: Pain Stop: 06/22/21 12:45 Last Admin: 06/09/21 10:19 Dose: 4 mg Documented by: Multivitamins (Multivitamin Tab) 1 tab PO [facility] Stop: 07/09/21 08:59 Last Admin: 06/09/21 09:25 Dose: 1 tab Documented by: Ondansetron HCl (Ondansetron Inj 2 Mg/Ml 2 Ml Vial) 4 mg IV Q4H PRN PRN Reason: Nausea And Vomiting Stop: 07/08/21 12:45 Last Admin: 06/08/21 20:57 Dose: 4 mg Documented by: Oxycodone/Acetaminophen (Oxycodone/Acetaminophen 5mg/325mg Tab) 1 tab PO Q4H PRN PRN Reason: Pain Stop: 06/22/21 12:45 Polyethylene Glycol (Polyethylene (Miralax) 17 Gm Pack) 17 gm PO DAILY PRN PRN Reason: Constipation Stop: 07/08/21 12:45
[2021-06-09] MEDS: MULTIVITAMIN TAB PO SCH (09:25)
[2021-06-09] MEDS: lisinopril 2.5 MG TAB PO SCH (09:25)
[2021-06-09] MEDS: ATORVASTATIN 40 MG TAB PO SCH (09:26)
[2021-06-09] MEDS: ATENOLOL 25 MG TABLET PO SCH ×2 (09:26→21:26)
--- NOTE | 2021-06-09 10:07 | Gastroenterology Progress Note ---
Date of Service June 09, 2021 Assessment & Plan (1) Epigastric abdominal pain: Plan: 55 year old female with abd pain, nausea, bloating and fevers at home. CT w/ mild peripancreatic inflammatory changes. Had ERCP last week. IV LR 200 mL/hr PO Antiemetics PRN Analgesia PRN Continue clear liquids and then to low fat as tolerated Consider DC home once tolerating dietary advancement. GI sign off. Recall as needed. Admission and Anticipated Discharge Date Admission Date: June 08, 2021 Supervising Physician Co-Signing Physician Notes I have seen and examined the patient with RHIANNA Bennett whose note reflects our findings and plan. Patient with less discomfort today. Still feels full. Tolerating liquids. OK to attempt to advance diet as toelrated. PRN use of analgesics and anti-emetics. Subjective Pt was seen and evaluated, chart reviewed. Sitting OOB in chair less pain Tolerating clears some bloating and fullness Review of Systems Review of Systems: All systems reviewed & are unremarkable except as noted in HPI & below Physical Exam Constitutional: WD/WN, vitals as above Neck: trachea midline, no thyromegaly Respiratory: normal respiratory effort, lungs clear to auscultation Cardiovascular: RRR, no murmur, no edema Gastrointestinal (Abdomen): normal bowel sounds, soft, nontender, no hepatosplenomegaly Results & Data ([facility]) Vital Signs (Past 12 Hours) Vital Signs Temp Pulse Resp BP Pulse Ox Pulse Ox 06/09/21 10:00 93 06/09/21 08:35 36.6 C 73 16 128/68 93
[2021-06-09] MEDS: MoRPHine SULFATE 4 MG/ML 1 ML CARP\\VIAL IV PRN (10:19)
[2021-06-09] MEDS: ACETAMINOPHEN 325 MG TAB PO PRN ×2 (16:59→21:23)
[2021-06-09] MEDS: MAGNESIUM OXIDE 400 MG TAB PO SCH (21:25)
[2021-06-09] MEDS ORDERED: SODIUM CHLORIDE 0.9% 500 ML IV SCH (23:30)
[2021-06-10] MEDS: SODIUM CHLORIDE 0.9% 1000ML 1,000 ML IV SCH ×3 (00:50→09:26)
[2021-06-10 06:11] VITALS: BP 120/74; PULSE 64; TEMP 98.8; O2SAT 94
[2021-06-10 06:13] LABS: Hematocrit (blood only) 38.3 % (37-47); Hemoglobin 13.1 g/dL (12.0-16.0); Mean Corpuscular Hemoglobin 29.8 pg (25-34); Mean Corpuscular Hgb Conc 34.2 g/dL (32-36); Mean Corpuscular Volume 87.2 fL (80-100); Mean Platelet Volume 9.6 fL (7.4-10.4); Platelet Count 296 K/uL (130-400); RDW Coefficient of Variation 13.8 % (11.5-14.5); RDW Standard Deviation 44.4 fL (36.4-46.3); Red Blood Count 4.39 M/uL (4.2-5.4); White Blood Count 6.27 K/uL (4.8-10.8)
[2021-06-10 07:00] LABS: Albumin Globulin Ratio 0.7 (0.9-2); Albumin Level 2.5 gm/dl (3.4-5.0); BUN Creatinine Ratio 17.5 (10-20); Bilirubin,Total 0.4 mg/dl (0.2-1); Calcium 7.9 mg/dl (8.5-10.1); Creatinine Clr Calc Pharmacy 121.3 ml/min; Est GFR (African American) 118.7 ml/min; Est GFR (Non-African American) 102.4 ml/min; Globulin 3.7 gm/dl (2.5-4.0); Magnesium 2.1 mg/dl (1.8-2.4); Phosphorus 1.9 mg/dl (2.5-4.9); Potassium 3.7 mmol/L (3.5-5.1); Total Protein 6.2 gm/dl (6.4-8.2)
[2021-06-10] MEDS: MULTIVITAMIN TAB PO SCH (08:09)
[2021-06-10] MEDS: lisinopril 2.5 MG TAB PO SCH (08:09)
[2021-06-10] MEDS: ATORVASTATIN 40 MG TAB PO SCH (08:09)
[2021-06-10] MEDS: ATENOLOL 25 MG TABLET PO SCH (08:09)
[2021-06-10] MEDS ORDERED: POTASSIUM PHOS 3 MMOL/1 ML INFUSION IV STA (08:35)
--- NOTE | 2021-06-10 08:37 | Hospitalist Progress Note ---
Date of Service June 10, 2021 Assessment & Plan (1) Post-ERCP acute pancreatitis: Plan: - GI consulted - ERCP conducted last Sunday06/03/21 - CT abd/pelvis reviewed as above showing mild inflammation suggestive of acute pancreatitis, ventral pancreatic stent in appropriate position - Continue fluids, pain control and antiemetics - now on clear liquids, will try to advance as tolerated - Attempt PO pain meds so able to dc home with medication if needed. Bowel regimen prn. - Lipase 175 on admission, trended down - No leukocytosis, afebrile - Mild hyponatremia on admission, monitor give IVF, now Na 139 Clinically much improved, abdominal pain resolved. Patient able to tolerate eggs and toast this morning. (2) Prediabetes: Plan: - Hx of such, diet and exercise to be encouraged throughout hospital stay and upon discharge - Last A1C = 6.2 on 02/20/21 (3) Hypertension: Plan: - BP normal - Pain control (4) Hyperlipidemia: Plan: - Cont statin therapy (5) Morbid obesity with BMI of 50.0-59.9, adult: Plan: - BMI of 50.7 - counselling, outpt follow up (6) Sleep apnea: Plan: - Continue CPAP HS DVT ppx: teds, ambulatory CODE: FULL Dispo: Plan to DC home today Admission and Anticipated Discharge Date Admission Date: June 08, 2021 Subjective Patient seen in follow-up of pancreatitis Currently she is sitting up in chair, in no acute distress Currently no fevers, chills, chest pain, shortness of breath Abdominal pain is much improved Had eggs and toast this morning, tolerated well Review of Systems Review of Systems: All systems reviewed & are unremarkable except as noted in Subjective Physical Exam Physical Exam: General: morbidly obese F, awake, alert, no apparent distress Head: Normocephalic, atraumatic ENT: PERRL, EOMI, no pharyngeal exudate, mucous membranes moist Chest: Clear to auscultation, on room air, no adventitious breath sounds Cardiac: Regular rate and rhythm, no murmur, no JVD Abdominal: + bowel sounds, soft, obese, nondistended, nontender to palpation, no rebound or guarding Extremities: Normal inspection, no peripheral edema or erythema, calves nontender to palpation Psych: Normal mood and affect Neuro: AAO x 3, strength intact bilaterally and rated 5/5, no motor deficits, speech is clear, no peripheral sensory deficits Results & Data Results & Data ([facility]) Vital Signs (Past 12 Hours) Vital Signs Temp Pulse Resp BP BP Pulse Ox 06/10/21 06:10 37.1 C 64 16 120/74 94 06/10/21 00:47 61 108/64 06/09/21 23:23 71 90/55 L 06/09/21 22:37 36.6 C 54 L 18 88/55 L 94/60 L 95 Laboratory Results 06/10/21 06/10/21 Range/Units 05:37 05:37 WBC 6.27 (4.8-10.8) K/uL RBC 4.39 (4.2-5.4) M/uL Hgb 13.1 (12.0-16.0) g/dL Hct 38.3 (37-47) % MCV 87.2 (80-100) fL MCH 29.8 (25-34) pg MCHC 34.2 (32-36) g/dL RDW Std Deviation 44.4 (36.4-46.3) fL RDW Coeff of Barak 13.8 (11.5-14.5) % Plt Count 296 (130-400) K/uL MPV 9.6 (7.4-10.4) fL Sodium 139 (136-145) mmol/L Potassium 3.7 (3.5-5.1) mmol/L Chloride 112 H (98-107) mmol/L Carbon Dioxide 24 (21-32) mmol/L Anion Gap 3.0 (3-11) BUN 11 (7-18) mg/dl Creatinine 0.63 (0.6-1.2) mg/dl Est Cr Clr Drug Dosing 121.3 ml/min Est GFR ( Amer) 118.7 ml/min Est GFR (Non-Af Amer) 102.4 ml/min BUN/Creatinine Ratio 17.5 (10-20) Glucose 85 (70-99) mg/dl Calcium 7.9 L (8.5-10.1) mg/dl Phosphorus 1.9 L D (2.5-4.9) mg/dl Magnesium 2.1 (1.8-2.4) mg/dl Total Bilirubin 0.4 (0.2-1) mg/dl AST 12 L (15-37) U/L ALT 31 (12-78) U/L Alkaline Phosphatase 80 (45-117) U/L Total Protein 6.2 L (6.4-8.2) gm/dl Albumin 2.5 L (3.4-5.0) gm/dl Globulin 3.7 (2.5-4.0) gm/dl Albumin/Globulin Ratio 0.7 L (0.9-2) Medications Administered Current Inpatient Medications Acetaminophen (Acetaminophen 325 Mg Tab) 650 mg PO Q4H PRN PRN Reason: Moderate Pain Stop: 07/08/21 12:45 Last Admin: 06/09/21 21:23 Dose: 650 mg Documented by: Atenolol (Atenolol 25 Mg Tablet) 12.5 mg PO BID [facility] Stop: 07/08/21 10:15 Last Admin: 06/10/21 08:09 Dose: 12.5 mg Documented by: Atorvastatin Calcium ([facility]atin 40 Mg Tab) [facility] Stop: 07/09/21 08:59 Last Admin: 06/10/21 08:09 Dose: 40 mg Documented by: Sodium Chloride (Nss 1000ml) 1,000 mls @ 200 mls/hr IV .Q5H [facility] Stop: 07/08/21 12:45 Last Admin: 06/10/21 04:35 Dose: 200 mls/hr Documented by: Lisinopril (Lisinopril 2.5 Mg Tab) 2.5 mg PO QAM [facility] Stop: 07/08/21 10:15 Last Admin: 06/10/21 08:09 Dose: 2.5 mg Documented by: Magnesium Oxide (Magnesium Oxide 400 Mg Tab) 400 mg PO HS [facility] Stop: 07/08/21 20:59 Last Admin: 06/09/21 21:25 Dose: 400 mg Documented by: Morphine Sulfate (Morphine Sulfate 4 Mg/Ml 1 Ml Carp\Vial) 4 mg IV Q4H PRN PRN Reason: Pain Stop: 06/22/21 12:45 Last Admin: 06/09/21 10:19 Dose: 4 mg Documented by: Multivitamins (Multivitamin Tab) [facility] [place] Stop: 07/09/21 08:59 Last Admin: 06/10/21 08:09 Dose: 1 tab Documented by: Ondansetron HCl (Ondansetron Inj 2 Mg/Ml 2 Ml Vial) 4 mg IV Q4H PRN PRN Reason: Nausea And Vomiting Stop: 07/08/21 12:45 Last Admin: 06/08/21 20:57 Dose: 4 mg Documented by: Oxycodone/Acetaminophen (Oxycodone/Acetaminophen 5mg/325mg Tab) 1 tab PO Q4H PRN PRN Reason: Pain Stop: 06/22/21 12:45 Polyethylene Glycol (Polyethylene (Miralax) 17 Gm Pack) 17 gm PO DAILY PRN PRN Reason: Constipation Stop: 07/08/21 12:45 Last Admin: 06/09/21 19:22 Dose: 17 gm Documented by: Potassium Phosphate (Pot Phosphate Monobasic W/ Sod Tab) 2 tab PO QID [facility] Stop: 07/10/21 08:59 Potassium Phosphate (Potassium Phos 3 Mmol/1 Ml Infusion) 9 mmol IV NOW STA Stop: 06/10/21 08:36
[2021-06-10] MEDS ORDERED: POTASSIUM PHOSPHATE 9 MMOL in SODIUM CHLORIDE 0.9% 250 ML IV ONE (09:00)
[2021-06-10] MEDS: POT PHOSPHATE MONOBASIC W/ SOD TAB PO SCH ×2 (09:26→13:15)
--- NOTE | 2021-06-10 10:42 | Discharge Summary ---
Date of Service June 10, 2021 Admission HPI Per Admitting Provider This is a 55-year-old female with PMHx of HTN, HLD, migraine, diabetic with A1c of 6.[address] with BMI of 50.7. Patient underwent ERCP on 06/03/[address] Pastrana. She represents today with increased abdominal pain which has been going on since being for her ERCP last Sunday, however thought it was postprocedural pain. Pain has been worsening and is constant, epigastric and radiates around her right ribs into her back. She reports tolerating some fluids over the past week but that food aggravates her symptoms. Last BM was Sunday, 4 days ago but is passing gas and belching. As per GI, she has been holding aspirin and NSAIDs since her procedure, and has only trialed tylenol at home for pain which has been minimally effective. During the procedure 1 gallstone was removed, and 1 pancreatic stent was placed in the ventral pancreatic duct. Her lipase is not elevated and 175 upon admission. No leukocytosis and afebrile. Noted to be slightly hyponatremic at [address] of the abdomen is showing mild peripancreatic inflammatory change primarily at the pancreatic body consistent with acute pancreatitis. Interval placement of the main pancreatic duct stent which appears in good position. No evidence for pancreatic duct dilatation. She will be admitted for intractable pain. Pain has improved with medication in the ER. Admission Exam Per Admitting Provider General: awake, alert, no apparent distress, morbidly obese with BMI of 50.7 Head: Normocephalic, atraumatic ENT: PERRL, EOMI, no pharyngeal exudate, mucous membranes moist Chest: Clear to auscultation, on room air, no adventitious breath sounds Cardiac: Regular rate and rhythm, no murmur, no JVD, normal peripheral pulses, good capillary refill Abdominal: Hypoactive BS x 4 quadrants, soft, nondistended, + tender to light palpation, no rebound or guarding Extremities: Normal inspection, no peripheral edema or erythema, calfs nontender to palpation Psych: Normal mood and affect Neuro: AAO x 3, strength intact bilaterally and rated 5/5, no motor deficits, speech is clear, no peripheral sensory deficits Principal Diagnosis Post ERCP pancreatitis Discharge Exam General: morbidly obese F, awake, alert, no apparent distress Head: Normocephalic, atraumatic ENT: PERRL, EOMI, no pharyngeal exudate, mucous membranes moist Chest: Clear to auscultation, on room air, no adventitious breath sounds Cardiac: Regular rate and rhythm, no murmur, no JVD Abdominal: + bowel sounds, soft, obese, nondistended, nontender to palpation, no rebound or guarding Extremities: Normal inspection, no peripheral edema or erythema, calves nontender to palpation Psych: Normal mood and affect Neuro: AAO x 3, strength intact bilaterally and rated 5/5, no motor deficits, speech is clear, no peripheral sensory deficits Discharge Data Allergies Allergy/AdvReac Type Severity Reaction Status Date / Time Penicillins Allergy Intermediate HIVES Verified 06/08/21 07:49 Sulfa (Sulfonamide Allergy Intermediate HIVES Verified 06/08/21 07:49 Antibiotics) shellfish derived Allergy Mild Vomiting Verified 06/08/21 07:49 sumatriptan AdvReac Intermediate HALLUCINATI Verified 06/08/21 07:49 ONS Consultations 06/08/21 09:26 ED Decision to Admit Stat 06/08/21 09:59 Consult Gastroenterology Routine Ordered Studies 06/08/21 05:32 CT abd pelvis IV con only Stat Hospital Course (1) Post-ERCP acute pancreatitis: - GI consulted - ERCP conducted last Sunday06/03/21 - CT abd/pelvis reviewed as above showing mild inflammation suggestive of acute pancreatitis, ventral pancreatic stent in appropriate position - Continue fluids, pain control and antiemetics - now on clear liquids, will try to advance as tolerated - Attempt PO pain meds so able to dc home with medication if needed. Bowel regimen prn. - Lipase 175 on admission, trended down - No leukocytosis, afebrile - Mild hyponatremia on admission, monitor give IVF, now Na 139 Clinically much improved, abdominal pain resolved. Patient able to tolerate eggs and toast this morning. (2) Prediabetes: - Hx of such, diet and exercise to be encouraged throughout hospital stay and upon discharge - Last A1C = 6.2 on 02/20/21 (3) Hypertension: - BP normal - Pain control (4) Hyperlipidemia: - Cont statin therapy (5) Morbid obesity with BMI of 50.0-59.9, adult: - BMI of 50.7 - counselling, outpt follow up (6) Sleep apnea: - Continue CPAP HS DVT ppx: teds, ambulatory CODE: FULL Dispo: Plan to DC home today Total Time Total Time Spent Total Time Spent (In Minutes): 35 Discharge Plan Discharge Items Patient Disposition: Home - Self-Care Reason For Visit: POST ERCP PAIN, PAIN CONTROL Discharge Diagnosis: Post ERCP pancreatitis Condition on Discharge: Good Activity: Per Instructions section Non-emergency contact: Primary Care Provider Call non-emergency contact if: you have any medication questions and your sympto ms worsen Follow-up/Referrals: Desirae Rivera, DO [Primary Care Provider] - Diet: Low Fiber and Low Fat Addtl Attending Provider Instructions: Follow-up with primary care doctor, the appointment was scheduled for you. Please see above. Recommend to avoid any heavy or fried foods for now. Make sure you stay well hydrated. To prevent constipation, use MiraLAX daily, which you can obtain [id number]. Pending Studies at Discharge: No Stand-Alone Forms: My maufait, Smoking Cessation Medications and DC Order Prescriptions: New oxycodone-acetaminophen [Percocet] 5-325 mg Tablet 1 tab PO Q4H PRN (Reason: pain (scale score 7-10)) Qty: 5 RF: 0 Continued atorvastatin 40 mg Tablet 40 mg PO QAM Qty: 30 RF: 0 atenolol 25 mg Tablet 12.5 mg PO BID Qty: 60 RF: 0 lisinopril 2.5 mg tablet 2.5 mg PO QAM RF: 0 multivitamin Tablet 1 tab PO QAM RF: 0 aspirin 81 mg Tablet,Delayed Release (Dr/Ec) 81 mg PO QAM RF: 0 Probiotic 3 billion cell Capsule 3,000 mmu cells PO QAM RF: 0 Magnesium Otc 1 tab PO HS RF: 0 Discharge Orders: Discharge Order (Routine); Ordered 06/10/21 Ordered By: Parag Silver Admission Data Admit Date/Time: 06/08/21 09:59 Attending Provider: Parag Silver Admit Provider: Parag Silver Primary Care Provider: Desirae Rivera Other Providers: Zulma Butcher ; Parag Silver
== END 2021-06-10 13:31 | disposition home or self-care (01) ==
LOC: ED 04:29 → 3E 04:29

== ENCOUNTER 2023-02-28 06:07 | Observation (INO) ==
--- NOTE | 2023-02-16 10:12 | PAT Medication Instructions ---
Medication Instructions Date of Service February 16, 2023 Home Medications Medication Instructions Recorded atenolol 25 mg tablet 12.5 mg PO BID #60 tabs 02/20/21 atorvastatin 40 mg tablet 40 mg PO QAM #30 tabs 02/20/21 methylprednisolone 4 mg tablets in 4 mg PO DIRECTED #21 ea 02/13/23 a dose pack (Medrol ([place]seas)) atenolol 25 mg tablet 12.5 mg PO BID atorvastatin 40 mg tablet 40 mg PO QAM lactobacillus combination no.4 3 billion cell capsule (Probiotic) 3,000 mmu cells PO QAM lisinopril 2.5 mg tablet 2.5 mg PO QAM multivitamin 1 tab PO QAM methylprednisolone 4 mg tablets in a dose pack (Medrol ([place]seas)) 4 mg PO DIRECTED meloxicam 7.5 mg tablet 7.5 mg PO QAM Continue as directed methylprednisolone 4 mg tablets in a dose pack (Medrol ([place])) 4 mg PO DIRECTED ASK your surgeon for instructions meloxicam 7.5 mg tablet 7.5 mg PO QAM DO NOT take the morning of surgery lactobacillus combination no.4 3 billion cell capsule (Probiotic) 3,000 mmu cells PO QAM lisinopril 2.5 mg tablet 2.5 mg PO QAM multivitamin 1 tab PO QAM Take morning of surgery With a small sip of water, OTHERWISE NOTHING TO EAT OR DRINK AFTER MIDNIGHT: atenolol 25 mg tablet 12.5 mg PO BID atorvastatin 40 mg tablet 40 mg PO QAM Take evening before surgery atenolol 25 mg tablet 12.5 mg PO BID Other Notes If you have any questions please call us at [phone] or [phone] or [phone] or [phone]
--- NOTE | 2023-02-19 11:16 | Anesthesiology Consultation ---
Date of Service February 19, 2023 Assessment & Plan (1) Encounter for pre-operative examination: - COVID screening: Per assessment on 02/19: No known COVID-19 positive contacts or current COVID-19 related symptoms. Travel screen negative. Patient vaccinated. At surgeon discretion if preop Covid testing being done. - PCP visit (02/19/23): "Pt has revised cardiac index score of One Risk Factor- 1.0% (95% CI: 0.5-1.4) for the surgery scheduled. Patient is low for the listed procedure." - Cardiology visit (02/20/23): "This is a 57-year-old female who was last seen in this practice several years ago following a hospitalization for right-sided weakness and dysarthria thought possibly due to a complex migraine. At that time antihypertensive and cholesterol medications were added. The patient has had no additional events following that hospitalization. She has no prior history of heart disease. She is a nonsmoker. She states she is a phase 0 diabetic. She is here today in regard to preoperative risk assessment for cervical spine surgery. She is in a great deal of discomfort today. She comes with a large pillow that is wrapped around her right shoulder so that she can lean her head that way to help with the discomfort down her left arm. She denies progressive shortness of breath. She is had no heart palpitations or tachycardia. EKG completed at the hospital yesterday which I reviewed and essentially within normal limits and unchanged from the previous studies.. Preoperative risk assessment for cervical spine surgery.. Plan: Utilizing the Andrew criteria for preoperative risk assessment this patient's risk for this surgery is 0.4%. She is currently optimally medically managed for her hypertension. No additional cardiac testing will change this risk assessment and she should proceed to surgery." Chart Review Chart Review: Acceptable Risk for Surgery and Patient seen in Pre Admission Testing Teaching & Discussion Pre-Anesthesia Teaching/Discussion Notes: Instructed NPO after midnight before surgery,except medications with 15 cc of water. Medication instructions provided according to the PAT guidelines. History Surgery Operation Date: 02/28/23 11:05 Proposed Procedures p C4-C7 Anterior Cervical Discectomy and Fusion, Spinal Cord Monitoring - Sonu Valle DO Height/Weight Height: 5 ft Weight: 127.8 kg Allergies Allergy/AdvReac Type Severity Reaction Status Date / Time Penicillins Allergy Intermediate Hives Verified 02/19/23 08:05 Sulfa (Sulfonamide Allergy Intermediate Hives Verified 02/19/23 08:05 Antibiotics) shellfish derived Allergy Mild Vomiting Verified 02/16/23 08:49 sumatriptan AdvReac Intermediate Hallucinati Verified 02/19/23 08:05 ons Medications Home Medications Medication Instructions Recorded Confirmed Last Taken atenolol 25 mg tablet 12.5 mg PO BID #60 tabs 02/20/21 02/16/23 03/23/22 06:30 atorvastatin 40 mg tablet 40 mg PO QAM #30 tabs 02/20/21 02/16/23 03/22/22 lactobacillus combination no.4 3 3,000 mmu cells PO QAM 05/24/21 02/16/23 03/22/22 billion cell capsule (Probiotic) lisinopril 2.5 mg tablet 2.5 mg PO QAM 05/24/21 02/16/23 03/22/22 multivitamin 1 tab PO QAM 05/24/21 02/16/23 03/22/22 meloxicam 7.5 mg tablet 7.5 mg PO QAM 02/16/23 02/16/23 Unknown Past Medical History Medical History Cervical spinal stenosis Completed [employer]in 02/19/23 History of COVID-19 09/2021- fever, fatigue, flu-like symptoms > resolved Hyperlipidemia Hypertension Migraine Hx Morbid obesity with BMI of 50.0-59.9, adult Post-ERCP acute pancreatitis 10/2021, admitted to [facility] Prediabetes "Diet managed" Hgb A1C 6.2 on 02/20/21 Sleep apnea CPAP (compliant) Exercise / Class Metabolic Activity III < 4 Walking/Shop/Light housework Past Family History Family History Mother Family history of diabetes mellitus Family history of stomach cancer Other No family history of adverse response to anesthesia No pertinent family history Past Surgical History Surgical History History of anesthesia reaction Slow to wake History of bowel resection 2018 (d/t severe diverticulitis/abscess, GHS), USO at same time History of colonoscopy History of colonoscopy with polypectomy History of dilatation and curettage History of tonsillectomy Previous section x3 S/P cholecystectomy S/P tubal ligation Status post left oophorectomy Done with bowel resection Past Anesthesia History No Family Hx of Anesthesia Complications and Other ("Slow to wake" with several surgeries/anesthesia) History of PONV No Hx of PONV and No Hx of Motion Sickness Social History Smoking Status: Never smoker Do You Dip or Chew Tobacco: No Hx Alcohol Use: Yes Alcohol type: wine alcohol intake frequency: holidays/special occasions only Hx Substance Use: No substance use type: does not use Review of Systems Patient denies chest pain, shortness of breath, dyspnea on exertion, fever, chills, cough, wheezing, palpitations. Physical Exam Vital Signs VITALS BP 142/76 P 61 TEMP 98.5 SP02 96%RA RESP 16 PHYSICAL Significantly cervical extension range of motion. Full TMJ range of motion. TMD 3 finger breaths Mallampati Score 3 Dentition: intact Lungs: clear throughout to auscultation Cardiac: regular rate and rhythm, no murmurs noted Spine: normal Carotid arteries: negative bruit Extremities: no LE edema Thick neck Lab Results Anesthesia Preop Results Results Anesthesia Widget: WBC 12.58 K/ul (4.8-10.8) H 02/19/23 Hgb 17.7 g/dl (12.0-16.0) H 02/19/23 Hct 49.8 % (37.0-47.0) H 02/19/23 Plt 393 K/uL (130-400) 02/19/23 Na 134 mmol/L (136-145) L 02/19/23 K 3.9 mmol/L (3.5-5.1) 02/19/23 Cl 98 mmol/L (98-107) 02/19/23 CO2 28 mmol/L (21-32) 02/19/23 BUN 24 mg/dl (6-23) H 02/19/23 Creat 0.79 mg/dl (0.6-1.2) 02/19/23 Glucose Level 188 mg/dl (70-99(Fasting)) H 02/19/23 PT 11.3 Seconds (9.0-12.0) 02/19/23 PTT 25.5 Seconds (21.0-31.0) 02/19/23 INR 1.0 (0.9-1.1) 02/19/23 Urine Color Yellow 02/19/23 Urine Appearance Clear (Clear) 02/19/23 Urine pH 5.5 (4.5-7.5) 02/19/23 Urine Specific Lacey 1.030 (1.000-1.030) 02/19/23 Urine Protein Negative (Negative) 02/19/23 Urine Glucose (UA) Negative (Negative) 02/19/23 Urine Ketones Negative (Negative) 02/19/23 Urine Blood Negative (Negative) 02/19/23 Urine Nitrite Negative (Negative) 02/19/23 Urine Bilirubin Negative (Negative) 02/19/23 Urine Urobilinogen Negative (Negative) 02/19/23 Urine Leukocyte Esterase Negative (Negative) 02/19/23 Blood Type O Positive 02/19/23 Antibody Screen NEGATIVE 02/19/23 Testing Laboratory Results Surgeon's office made aware of elevated WBC, recent completion of medrol augustin 02/19/23* Electrocardiogram Date: 02/19/23 NSR at 66bpm. Low voltage QRS. No significant change compared to 06/08/2021 per technology instructor comparison. Chest X-Ray Date: 02/19/23 Findings: + NAD Echocardiogram Date: 02/19/21 EF: 60-65% LV Function: normal RWMA: + none Other Findings: + LVH (Moderate/concentric) Valvular Disease: + no significant valvular disease LV is normal in size. All chamber sizes are normal. Aortic root is normal size. No pericardial effusion. Stress Test Date: 04/06/21 Type: nuclear Lexiscan nuclear stress test is equivocal for inducible ischemia. Focal reversible apical inferior defect encompassing 1% of the total myocardium per quantitative analysis. Defect may represent a small area of ischemia versus soft tissue attenuation artifact related to breast tissue attenuation and/or ramp filter artifact secondary to hepatic isotopic tracer uptake. No evidence of ischemia on stress EKG. Gated SPECT images reveal normal myocardial thickening and wall motion. LVEF >70%. COVID-19 Risk Screen Screening Information COVID-19 Screen Date: 02/19/23 Exposure 21 Days Family/Household +COVID Last 21 Days: No Exposure 10 Days Any COVID Exposure Last 10 Days: No Symptoms Last 10 Days Experienced COVID Sx Last 10 Days: No + COVID 0-90 Days COVID + in Last 0-90 Days: No
[~2023-02-28 06:07] MED LIST changes: +ACETAMINOPHEN 500 MG TAB PO SCH; +CLINDAMYCIN/D5W 900 MG/50 ML BAG IV SCH; +GABAPENTIN 600 MG DOSE PO SCH; +LR 15ML/HR IV SCH; +LR 60ML/HR IV SCH; -OPTIRAY 320 IV
[2023-02-28] MEDS ORDERED: PROMETHAZINE HCL 6.25 MG in SODIUM CHLORIDE 0.9% 50 ML IV PRN (06:50)
[2023-02-28] MEDS ORDERED: ePHEDrine sulfate 50 MG/ML AMP IV PRN (06:50)
[2023-02-28] MEDS ORDERED: HYDROmorphone INJ 1 MG/ML SYRINGE IV PRN ×2 (06:50→11:22)
[2023-02-28] MEDS ORDERED: ATROPINE SULFATE 0.1 MG/ML 10ML SYR IV PRN (06:50)
[2023-02-28] MEDS ORDERED: ONDANSETRON INJ 2 MG/ML 2 ML VIAL IV PRN (06:50)
[2023-02-28] MEDS ORDERED: ONDANSETRON INJ 2 MG/ML 2 ML VIAL ONE (06:57)
[2023-02-28] MEDS ORDERED: PROPOFOL IV EMULSION 10 MG/ML 20 ML VIAL IV ONE (06:57)
[2023-02-28] MEDS ORDERED: MIDAZOLAM HCL 1 MG/ML 2ML VIAL ONE (06:57)
[2023-02-28] MEDS ORDERED: DEXAMETHASONE SOD INJ 4 MG/ML VIAL ONE (06:57)
[2023-02-28] MEDS ORDERED: fentaNYL citrate PF 100 MCG/2 ML VIAL ONE ×2 (06:57→09:48)
[2023-02-28] MEDS ORDERED: LIDOCAINE 2% 2 ML VIAL/AMP(20MG/ML) INFIL ONE ×2 (06:57→08:26)
[2023-02-28] MEDS ORDERED: SUGAMMADEX SODIUM 200 MG/2 ML VIAL IV ONE (07:05)
[2023-02-28] MEDS ORDERED: KETAMINE 50 MG/5 ML SYRINGE ONE (07:06)
[2023-02-28] MEDS ORDERED: ceFAZolin 330 MG/ML 1 GM VIAL ONE (07:06)
--- NOTE | 2023-02-28 07:37 | History & Physical Bridge Note ---
Date of Service February 28, 2023 History & Physical Bridge Note I have examined the patient, reviewed the History & Physical and in the interval since the performance of the History & Physical I have noted the following changes of clinical significance: no changes noted
--- NOTE | 2023-02-28 07:39 | History & Physical Report ---
Date of Service February 28, 2023 Assessment & Plan (1) Cervical spinal stenosis: Plan: C4-C7 anterior cervical discectomy and fusion History of Present Illness Chief Complaint: Neck and arm pain Primary Care Provider: Desirae Rivera DO This is a 57-year-old female presents with chronic persistent neck and arm pain and failing since course of nonoperative care she is here for surgical invention. Allergies Allergy/AdvReac Type Severity Reaction Status Date / Time Penicillins Allergy Intermediate Hives Verified 02/28/23 06:32 Sulfa (Sulfonamide Allergy Intermediate Hives Verified 02/28/23 06:32 Antibiotics) shellfish derived Allergy Mild Vomiting Verified 02/28/23 06:32 sumatriptan AdvReac Intermediate Hallucinati Verified 02/28/23 06:32 ons Home Medications Medication Instructions Recorded Confirmed Type atenolol 25 mg tablet 12.5 mg PO BID #60 tabs 02/20/21 02/28/23 Rx atorvastatin 40 mg tablet 40 mg PO QAM #30 tabs 02/20/21 02/28/23 Rx lactobacillus combination no.4 3 3,000 mmu cells PO QAM 05/24/21 02/28/23 History billion cell capsule (Probiotic) lisinopril 2.5 mg tablet 2.5 mg PO QAM 05/24/21 02/28/23 History multivitamin 1 tab PO QAM 05/24/21 02/28/23 History meloxicam 7.5 mg tablet 7.5 mg PO QAM 02/16/23 02/28/23 History Past Med/Surg History Medical History Cervical spinal stenosis Completed medrol augustin 02/19/23 History of COVID-19 09/2021- fever, fatigue, flu-like symptoms > resolved Hyperlipidemia Hypertension Migraine Hx Morbid obesity with BMI of 50.0-59.9, adult Post-ERCP acute pancreatitis 10/2021, admitted to [facility] Prediabetes "Diet managed" Hgb A1C 6.2 on 02/20/21 Sleep apnea CPAP (compliant) Surgical History History of anesthesia reaction Slow to wake History of bowel resection 2018 (d/t severe diverticulitis/abscess, GHS), USO at same time History of colonoscopy History of colonoscopy with polypectomy History of dilatation and curettage History of tonsillectomy Previous section x3 S/P cholecystectomy S/P tubal ligation Status post left oophorectomy Done with bowel resection Family History Mother Family history of diabetes mellitus Family history of stomach cancer Other No family history of adverse response to anesthesia No pertinent family history Social History Smoking Status: Never smoker Second Hand Exposure: Yes (hx as child); Do You Dip or Chew Tobacco: No; Tobacco Cessation Education Requested by Patient: No Hx Alcohol Use: Yes Alcohol type: wine Hx Substance Use: No Preferred Language: Macedonian Communication Ability: Effective Manifold Operator Required: No Beliefs That Will Affect Care: None marital status: Current Living Situation: Spouse and Family Current Living Situation Comment: Lives with , children current occupational status: employed current occupation: [employer] Other Information That Helps Us Care for You: No Feels Safe at Home: Yes Safety Concerns: Feels Safe At This Time Assistive Devices: CPAP and Glasses Physical Exam Physical Exam: Patient is alert and oriented Heart regular rhythm Lungs clear Results & Data Results & Data Vital Signs (Past 12 Hours) Vital Signs Temp Pulse Resp BP Pulse Ox O2 Del Method 02/28/23 06:20 36.9 C 76 20 146/73 H 96 Room Air
[2023-02-28] MEDS ORDERED: ROCURONIUM BROMIDE 10 MG/ML 5 ML VIAL IV ONE (08:26)
[2023-02-28] MEDS ORDERED: FLOSEAL HEMOSTATIC MATRIX 10ML TOP ONE (08:32)
--- NOTE | 2023-02-28 09:54 | Operative Report ---
Post Operative Report Pre & Post Diagnosis Operation Date: 02/28/23 07:45 Pre-Op Diagnosis: Cervical spinal stenosis with radiculopathy Morbid obesity Post-Op Diagnosis: Same I identified the patient and participated in the time-out.: Yes Procedure Operation Date: 02/28/23 07:45 Actual Procedures 1. Anterior cervical discectomy with bilateral foraminotomies C4-C5, C5-C6 and C6-C7. #2 anterior cervical arthrodesis C4-C5, C5-C6 and C6-C7. #3 placement of Spira 7 mm cage at C4-C5, 8 mm cage at C5-C6 and 8 mm cage at C6-C7. All filled with I factor bone graft. #4 placement of K2 M plate and screws from C4- C7. Surgeon Sonu Valle, Social Media Project Manager Sulma Walker Estimated Blood Loss 10 Findings See Below The patient is 5 foot tall weighing over 129 kg with a BMI in excess of 55. The patient's body habitus did create significant technical difficulty requiring her deepest retractors longer instruments in order to perform her procedure. This had at least 50% increased operative time. Specimens none Indications This is a 57-year-old female presents above-mentioned diagnosis after failing since course of nonoperative care she is here for surgical invention. Description of Procedure Patient was met with identified informed consent obtained. Patient was then taken to the operative suite underwent ablation placed in the supine position on the Gutierrez table with her head in the [place] head order. All bony prominences well-padded eyes inspected to ensure no external pressure placed upon them. With the assistance of fluoroscopy identified the C5-C6 disc base and a transverse incision was placed along the right anterior aspect of the cer vical spine overlying this region. Blunt dissection with assistance of bipolar electrocautery was performed down to and exposing the anterior cervical spine from C4-C7. A self-retaining retractors placed. I began at C4-C5 with complete discectomy up to the uncovertebral joints bilaterally. [place] distracting pins were utilized to assist in visualization. Removed all posterior annular fibers longitudinal ligament bilateral foraminotomies performed endplates burred to subcortical mean bone and a 7 mm Spira cage with I factor tapped in position. I then proceeded to C5-C6. Again complete discectomy performed out to the uncovertebral's bilaterally. [place] distracting pins again utilized. Removed all posterior and the fibers longitudinal ligament bilateral foraminotomies performed. Endplates burred to subcortical bleeding bone and 8 mm Spira cage with I factor tapped position. Lastly proceeded to C6-C7. Again complete discectomy performed out to the ankle bony joints bilaterally. [place] distracting pins again utilized. Removed all posterior annular fibers longitudinal ligament bilateral foraminotomies performed endplates burred to subcortical mean bone and an 8 mm Spira cage with I factor tapped in position. Distracting apparatus was removed all anterior osteophytes burred to smooth cortical surface and a K2 M plate and screws applied with the assistance of fluoroscopy. The incision was then copiously irrigated explored to ensure no damage to surrounding structures remaining bleeding. 15 round SOHAM drain inserted. The incision was then closed with 2 Vicryl in a fashion of 4 Monocryl for final skin closure. Steri-Strips and sterile dressing placed. Patient waken taken to PACU in stable condition. Please note spinal cord monitoring was utilized at the procedure no changes noted. Lastly Sulma Walker was present at the entire surgery and while the patient positioning complex portions of the surgery and final skin closure. I attest to the content of the Intraoperative Record and any orders documented therein. Any exceptions are noted below.
[2023-02-28] MEDS: fentaNYL citrate PF 100 MCG/2 ML VIAL IV PRN ×4 (10:15→10:45)
--- NOTE | 2023-02-28 10:47 | Fluoroscopy Report ---
FL cervical 2-3V CLINICAL HISTORY: C4-C7 ACDF COMPARISON STUDY: None. FLUOROSCOPY TIME: 20 seconds FLUOROSCOPY IMAGES: 2 Ka,r: 13.9 mGy FINDINGS: C4-C7 ACDF. The hardware appears intact. Endotracheal tube is partially visualized. IMPRESSION: Fluoroscopic assistance as above. ACT 112: Negative or not required by law. Electronically signed by: Boom Edwards M.D. 02/28/2023 10:45 AM
--- NOTE | 2023-02-28 11:02 | Anesthesiology Progress Note ---
Date of Service February 28, 2023 Anesthesia Post Procedure Vital Signs Vital Signs: Temp Pulse Resp BP Pulse Ox O2 Del Method O2 Flow Rate 02/28/23 10:40 36.6 C 77 13 146/83 H 94 Oxymask 3 02/28/23 10:30 36.6 C 73 17 133/77 94 Oxymask 4 02/28/23 10:20 36.6 C 77 16 116/77 94 Oxymask 7 02/28/23 10:50 36.5 C 82 11 L 148/73 H 96 Oxymask 3 02/28/23 10:02 36.6 C 77 15 113/57 L 94 Oxymask 7 02/28/23 06:20 36.9 C 76 20 146/73 H 96 Room Air Pain Intensity Neck: Pain Intensity: 6 Transfer of Care Handoff Completed per policy Notes Mental Status: alert / awake / arousable and participated in evaluation Patient Amnestic to Procedure: Yes Nausea / Vomiting: adequately controlled Pain: adequately controlled and improving with treatment Airway Patency, RR, SpO2: stable & adequate BP & HR: stable & adequate Hydration State: stable & adequate Anesthetic Complications: no major complications apparent and Pt Satisfied with anesthetic care
[2023-02-28] MEDS ORDERED: ONDANSETRON 4 MG OD TAB PO PRN (11:22)
[2023-02-28] MEDS ORDERED: DO NOT ADMINISTER PNEUMOCOCCAL VACCINE PRN (11:22)
[2023-02-28] MEDS ORDERED: DO NOT ADMINISTER FLU VACCINE PRN (11:22)
[2023-02-28] MEDS ORDERED: LACTATED RINGER'S 1,000 ML IV SCH (11:22)
[2023-02-28] MEDS ORDERED: bisacodyL 10 MG SUPP PR PRN (11:22)
[2023-02-28] MEDS ORDERED: hydrOXYzine HCl 25 MG TAB PO PRN (11:22)
[2023-02-28] MEDS ORDERED: FAMOTIDINE 20 MG TAB PO PRN (11:22)
[2023-02-28] MEDS ORDERED: LORazepam 0.5 MG TAB PO PRN (11:22)
[2023-02-28] MEDS ORDERED: ACETAMINOPHEN 1,000 MG/100 ML VIAL IV PRN (11:22)
[2023-02-28] MEDS ORDERED: diphenhydrAMINE Capsule 25 MG CAP PO PRN (11:22)
[2023-02-28] MEDS ORDERED: SOD PHOSPHATE/SOD BIPHOSPHATE ENEMA 132 ML BTL PR PRN (11:22)
[2023-02-28] MEDS ORDERED: ALUMINUM/MAGNESIUM SUSP 30 ML UDC PO PRN (11:22)
[2023-02-28] MEDS ORDERED: PROMETHAZINE HCL 12.5 MG in SODIUM CHLORIDE 0.9% 50 ML IV PRN (11:22)
[2023-02-28] MEDS ORDERED: dexAMETHasone 8 MG in SYRINGE 0 ML IV PRN (11:22)
[2023-02-28] MEDS ORDERED: LORazepam 2 MG/1 ML VIAL IV PRN (11:22)
[2023-02-28] MEDS ORDERED: METOCLOPRAMIDE HCL INJ 5 MG/ML 2 ML VIAL IV PRN (11:22)
[2023-02-28] MEDS ORDERED: NALOXONE HCL 0.4 MG/1 ML VIAL/CARP IV PRN (11:22)
[2023-02-28] MEDS ORDERED: MAGNESIUM HYDROXIDE SUSP 30 ML UDC PO PRN (11:22)
[2023-02-28] MEDS ORDERED: RACEPINEPHRINE 2.25% NEBU SOLN 0.5 ML VIAL INH PRN (11:22)
[2023-02-28] MEDS ORDERED: Nursing to Pharmacy Communication SCH (12:15)
[2023-02-28] MEDS: HYDROmorphone INJ 0.5 MG/0.5 ML SYR IV PRN ×3 (12:32→22:28)
[2023-02-28] MEDS ORDERED: SODIUM CHLORIDE 0.9% 1000ML 1,000 ML IV SCH (13:15)
[2023-02-28] MEDS: ONDANSETRON INJ 2 MG/ML 2 ML VIAL IV PRN ×2 (13:27→19:43)
[2023-02-28] MEDS ORDERED: PHARMACY GLYCEMIC MGMT CONSULT PRN (13:39)
[2023-02-28] MEDS: dexAMETHasone 6 MG in SYRINGE 0 ML IV SCH ×2 (13:39→19:43)
[2023-02-28] MEDS ORDERED: LANTUS PER UNIT CHARGE SC STA ×2 (13:59→14:01)
[2023-02-28] MEDS ORDERED: INSULIN ASPART PER UNIT CHARGE SC ONE (14:00)
--- NOTE | 2023-02-28 14:16 | Pharmacy Report ---
Pharmacy Glycemic Short Note 2 - Date of Service February 28, 2023 - Glycemic Short BSG Results (Last 24 hours): 02/28/23 02/28/23 02/28/23 06:36 10:11 12:03 POC Glucose 171 H 206 H 256 H OUTPATIENT ANTIDIABETIC REGIMEN: * none * A1c = ? ASSESSMENT: * "Pre-diabetic" admitted for ACDF * Recent A1c unavailable, however last A1c viewable was in the pre-DM range, 6.2% in 2020 * Fasting BSG elevated this AM on arrival and prior to receipt of IV steroid. * Dexamethasone IV ordered radha-op and post-op. Expect increased insulin resistance as result. * Will begin basal/bolus SQ regimen based upon weight. Will utilize "moderate" stress level for 1st doses of Lantus and Novolog as doses are being administered a little later than desired for lunchtime BSG check. Next insulin dose will "stack" somewhat. Will then escalate Novolog doses of "severe" stress dosing for remainder of the day. A scaled dose of Lantus will be given at bedtime, based upon BSG response to prior doses. PLAN FOR INPATIENT GLYCEMIC CONTROL: * Check A1c with AM labs * Basal insulin * Lantus 20 units SQ x 1 STAT, then per scale at HS (0 units if less than 130; 12 units if 130-180, 20 units if 181-240, 30 units if above 240) * Bolus insulin * NovoLog per scale ACHS and at 00 + 04 tonight * Goal Range: Low 110 mg/dL - High 140 mg/dL * Correction Factor: 15 mg/dL/unit * Nutritional / Prandial insulin per carb ratio of 1 unit per 5 grams CHO consumed
[2023-02-28] MEDS: CLINDAMYCIN/D5W 600 MG/50 ML BAG IV SCH ×2 (16:40→23:08)
[2023-02-28] MEDS: INSULIN ASPART PER UNIT CHARGE SC SCH ×2 (17:45→21:06)
[2023-02-28] MEDS: ATENOLOL 25 MG TABLET PO SCH (21:05)
[2023-02-28] MEDS: DOCUSATE SODIUM/SENNA 50/8.6MG TAB PO SCH (21:05)
[2023-02-28] MEDS: SODIUM CHLORIDE 0.9% 1000ML 1,000 ML IV SCH (21:06)
[2023-02-28] MEDS: LANTUS PER UNIT CHARGE SC SCH (21:06)
[2023-03-01] MEDS: INSULIN ASPART PER UNIT CHARGE SC SCH ×6 (00:05→22:06)
[2023-03-01] MEDS: traMADol HCL 50 MG TABLET PO PRN (02:39)
[2023-03-01] MEDS: HYDROmorphone INJ 0.5 MG/0.5 ML SYR IV PRN (03:23)
[2023-03-01] MEDS: ONDANSETRON INJ 2 MG/ML 2 ML VIAL IV PRN (04:09)
[2023-03-01] MEDS: SODIUM CHLORIDE 0.9% 1000ML 1,000 ML IV SCH ×2 (04:10→10:59)
[2023-03-01] MEDS: dexAMETHasone 6 MG in SYRINGE 0 ML IV SCH (04:10)
[2023-03-01] MEDS: POLYETHYLENE (MIRALAX) 17 GM PACK PO SCH ×3 (05:45→18:17)
[2023-03-01] MEDS: oxyCODONE HCL IR 5 MG TAB (IMMEDIATE RELEASE) PO PRN ×2 (07:19→14:28)
[2023-03-01 07:53] LABS: Estimated Average Glucose 174 mg/dl; Hemoglobin A1C 7.7 % (4.5-5.6)
[2023-03-01] MEDS ORDERED: LANTUS PER UNIT CHARGE SC STA (08:34)
--- NOTE | 2023-03-01 08:39 | Orthopedic Progress Note ---
Date of Service March 01, 2023 Assessment & Plan (1) Cervical spinal stenosis: Plan: At this time we will reinitiate gabapentin 30 mg p.o. 3 times daily. She may use her home muscle stimulator. This provides relief. We will maintain SOHAM drain until tomorrow. She may remove her collar as necessary. Admission and Anticipated Discharge Date Admission Date: February 28, 2023 Subjective Patient is swallowing well. No hoarseness. Unfortunately still experiencing some left arm burning. Right upper extremities asymptomatic. Physical Exam Physical Exam: On exam she is most comfortable sitting up in bed. She has good strength testing. Results & Data Vital Signs (Past 12 Hours) Vital Signs Temp Pulse Resp BP Pulse Ox O2 Del Method O2 Flow Rate 03/01/23 07:00 80 18 94 Room Air 03/01/23 07:08 36.5 C 85 16 150/82 H 94 Room Air 03/01/23 03:18 203 H 18 94 Oxymask 3 03/01/23 05:41 36.8 C 91 H 18 139/81 94 Oxymask 2 03/01/23 03:24 36.5 C 98 H 20 156/82 H 95 Oxymask 3 03/01/23 01:05 36.5 C 102 H 16 123/74 94 Oxymask 3 02/28/23 22:41 105 H 18 96 Oxymask 3 02/28/23 23:01 36.9 C 103 H 16 129/76 94 Oxymask 3 02/28/23 21:03 37 C 112 H 16 145/77 H 92 Oxymask 3 Queries Orthopedic Spine Obesity: Yes
--- NOTE | 2023-03-01 08:46 | Pharmacy Report ---
Pharmacy Glycemic Short Note 2 - Date of Service March 01, 2023 - Glycemic Short BSG Results (Last 24 hours): 02/28/23 02/28/23 02/28/23 10:11 12:03 14:52 POC Glucose 206 H 256 H 238 H 02/28/23 02/28/23 02/28/23 17:11 20:29 23:59 POC Glucose 243 H 219 H 205 H 03/01/23 03/01/23 04:02 08:07 POC Glucose 197 H 210 H OUTPATIENT ANTIDIABETIC REGIMEN: * none * HbA1c: 7.7% (03/01/23) ASSESSMENT: 03/01: * Patient received 65 units of insulin postoperatively yesterday, 40 units basal + 25 units bolus. BSGs elevated and ranged from 171 - 256 mg/dL. * Received 8 mg of IV dexamethasone x 1 intraoperatively followed by 6 mg IV every 8 hours x 3 doses. Received last dose of Dexamethasone this morning around 0400. Hyperglycemia is likely due to steroids. Expecting hyperglycemic effect of steroids to last another 24 hours. * Fasting BSG elevated at 210 mg/dL today. Will increase basal by ~20% today. May have to back off tomorrow as steroids wear off. Novolog was tightened last evening so no change today. 02/28: * "Pre-diabetic" admitted for ACDF * Recent A1c unavailable, however last A1c viewable was in the pre-DM range, 6.2% in 2020 * Fasting BSG elevated this AM on arrival and prior to receipt of IV steroid. * Dexamethasone IV ordered radha-op and post-op. Expect increased insulin resistance as result. * Will begin basal/bolus SQ regimen based upon weight. Will utilize "moderate" stress level for 1st doses of Lantus and Novolog as doses are being administered a little later than desired for lunchtime BSG check. Next insulin dose will "stack" somewhat. Will then escalate Novolog doses of "severe" stress dosing for remainder of the day. A scaled dose of Lantus will be given at bedtime, based upon BSG response to prior doses. PLAN FOR INPATIENT GLYCEMIC CONTROL: * Basal insulin * Lantus 20-30 units SC BID per scale (see eMAR for more details) * Bolus insulin * NovoLog per scale ACHS * Goal Range: Low 110 mg/dL - High 140 mg/dL * Correction Factor: 12 mg/dL/unit * Nutritional / Prandial insulin per carb ratio of 1 unit per 4 grams CHO consumed
[2023-03-01] MEDS: lisinopril 2.5 MG TAB PO SCH (09:04)
[2023-03-01] MEDS: LACTOBACILLUS ACIDOPHILUS 1 GM PACK PO SCH (09:04)
[2023-03-01] MEDS: MULTIVITAMIN TAB PO SCH (09:04)
[2023-03-01] MEDS: ATORVASTATIN 40 MG TAB PO SCH (09:04)
[2023-03-01] MEDS: ATENOLOL 25 MG TABLET PO SCH ×2 (09:06→22:00)
[2023-03-01] MEDS: ACETAMINOPHEN 500 MG TAB PO PRN ×2 (09:59→18:33)
[2023-03-01] MEDS: GABAPENTIN 300 MG CAP PO SCH ×2 (10:02→18:16)
[2023-03-01] MEDS ORDERED: Nursing to Pharmacy Communication SCH (12:30)
[2023-03-01] MEDS: DOCUSATE SODIUM/SENNA 50/8.6MG TAB PO SCH (22:00)
[2023-03-01] MEDS: LANTUS PER UNIT CHARGE SC SCH (22:07)
[2023-03-02] MEDS: traMADol HCL 50 MG TABLET PO PRN ×2 (00:10→05:35)
[2023-03-02] MEDS: POLYETHYLENE (MIRALAX) 17 GM PACK PO SCH ×2 (00:11→05:35)
[2023-03-02] MEDS: GABAPENTIN 300 MG CAP PO SCH ×2 (01:31→07:50)
[2023-03-02] MEDS: ACETAMINOPHEN 500 MG TAB PO PRN (07:48)
[2023-03-02] MEDS: ATENOLOL 25 MG TABLET PO SCH (07:49)
[2023-03-02] MEDS: ATORVASTATIN 40 MG TAB PO SCH (07:49)
[2023-03-02] MEDS: lisinopril 2.5 MG TAB PO SCH (07:50)
[2023-03-02] MEDS: MULTIVITAMIN TAB PO SCH (07:51)
[2023-03-02] MEDS: LACTOBACILLUS ACIDOPHILUS 1 GM PACK PO SCH (07:51)
[2023-03-02] MEDS: INSULIN ASPART PER UNIT CHARGE SC SCH (08:18)
--- NOTE | 2023-03-02 09:37 | Pharmacy Report ---
Pharmacy Glycemic Short Note 2 - Date of Service March 02, 2023 - Glycemic Short BSG Results (Last 24 hours): 03/01/23 03/01/23 03/01/23 11:50 17:04 20:33 POC Glucose 201 H 137 H 192 H 03/02/23 07:50 POC Glucose 98 OUTPATIENT ANTIDIABETIC REGIMEN: * none * HbA1c: 7.7% (03/01/23) ASSESSMENT: 03/02: * Received 90 units of insulin yesterday, 50 units basal + 40 units bolus. BSGs ranged from 137 - 210 mg/dL. * Fasting BSG improved significantly to 98 mg/dL this AM. Appears that steroids have worn off. Will hold any AM insulin and continue with a reduced basal dose at HS tonight. Hoping to decrease basal insulin by 50% today. * No change in bolus regimen today as stressors remain stable. 03/01: * Patient received 65 units of insulin postoperatively yesterday, 40 units basal + 25 units bolus. BSGs elevated and ranged from 171 - 256 mg/dL. * Received 8 mg of IV dexamethasone x 1 intraoperatively followed by 6 mg IV every 8 hours x 3 doses. Received last dose of Dexamethasone this morning around 0400. Hyperglycemia is likely due to steroids. Expecting hyperglycemic effect of steroids to last another 24 hours. * Fasting BSG elevated at 210 mg/dL today. Will increase basal by ~20% today. May have to back off tomorrow as steroids wear off. Novolog was tightened last evening so no change today. 02/28: * "Pre-diabetic" admitted for ACDF * Recent A1c unavailable, however last A1c viewable was in the pre-DM range, 6.2% in 2020 * Fasting BSG elevated this AM on arrival and prior to receipt of IV steroid. * Dexamethasone IV ordered radha-op and post-op. Expect increased insulin resistance as result. * Will begin basal/bolus SQ regimen based upon weight. Will utilize "moderate" stress level for 1st doses of Lantus and Novolog as doses are being administered a little later than desired for lunchtime BSG check. Next insulin dose will "stack" somewhat. Will then escalate Novolog doses of "severe" stress dosing for remainder of the day. A scaled dose of Lantus will be given at bedtime, based upon BSG response to prior doses. PLAN FOR INPATIENT GLYCEMIC CONTROL: * Basal insulin * Lantus 15-25 units SC HS per scale (see eMAR for more details) * Bolus insulin * NovoLog per scale ACHS * Goal Range: Low 110 mg/dL - High 140 mg/dL * Correction Factor: 12 mg/dL/unit * Nutritional / Prandial insulin per carb ratio of 1 unit per 4 grams CHO consumed
--- NOTE | 2023-03-02 10:47 | Discharge Summary ---
Date of Service March 02, 2023 Admission HPI Per Admitting Provider This is a 57-year-old female presents with chronic persistent neck and arm pain and failing since course of nonoperative care she is here for surgical invention. Principal Diagnosis Cervical spinal stenosis with radiculopathy Discharge Data Allergies Allergy/AdvReac Type Severity Reaction Status Date / Time Penicillins Allergy Intermediate Hives Verified 02/28/23 06:32 Sulfa (Sulfonamide Allergy Intermediate Hives Verified 02/28/23 06:32 Antibiotics) shellfish derived Allergy Mild Vomiting Verified 02/28/23 06:32 sumatriptan AdvReac Intermediate Hallucinati Verified 02/28/23 06:32 ons Procedures Performed Operation Date: 02/28/23 07:45 Actual Procedures p C4-C7 Anterior Cervical Discectomy and Fusion, Spinal Cord Monitoring(Not Applicable) - Sonu Valle DO Ordered Studies 02/28/23 07:45 FL cervical 2-3V Routine Hospital Course (1) Cervical spinal stenosis: Patient went anterior cervical discectomy and fusion tolerated this well was taken to orthopedic for postoperative. Postop day #1 she was having some difficulty with pain control. SOHAM drain still significant. Subsequently like to keep her additional day. Postop day #2 pain markedly improved. Swallowing well. No hoarseness. Good strength testing. Subsidy discharged home. Dis charge orders instructions found in chart for further review. Total Time Total Time Spent Total Time Spent (In Minutes): 20 minutes Discharge Plan Discharge Items Patient Disposition: Home - Self-Care Reason For Visit: Cervical Region Spinal Stenosis Discharge Diagnosis: Cervical spinal stenosis with radiculopathy Activity: As commented below Non-emergency contact: Primary Care Provider Call non-emergency contact if: you have any medication questions Follow-up/Referrals: Desirae Rivera DO [Primary Care Provider] - Diet: Regular Addtl Attending Provider Instructions: ACTIVITY RECOMMENDATIONS: SELF CARE INSTRUCTIONS AFTER CERVICAL FUSIONS 1. No smoking. Smoking drastically decreases the chance of a solid fusion. 2. No bending, lifting more than 5 pounds, or twisting (roll like a log when turning in bed). 3. You may shower 3 days after surgery. Thoroughly dry wound. Do not soak in the tub. 4. Cervical collar: Must be worn at all times including sleeping. You may remove the brace only to bath, eat and if you are sitting in a recliner. 5. Please walk as much as you can for exercise. Gradually increase the distance that you walk as your endurance increases. SPECIAL CARE INSTRUCTIONS: VERY IMPORTANT TO READ AND REVIEW A. Do not take any anti-inflammatory medications (i.e. Indocin, Advil, Aspirin, Naprosyn, Aleve, Motrin, etc.) as these may inhibit the chance of a solid fusion. Tylenol is okay to take. B. Your surgical incision has been closed with a cosmetic suture under the skin that will dissolve in about 6 weeks. In 14 days, you can use a pair of clean scissors and cut the suture that is left outside of the skin at the ends of your incision. C. Complications are uncommon, but please contact us if you have any signs or symptoms of: 1. wound infection (fever higher than 102.5 degrees F, redness, separation of wound, drainage, or increasing pain from the incision) 2. blood clots in legs (pain, swelling, redness and warmth in legs) 3. urinary tract infection (fever higher than 102.5 degrees, burning upon urination or increased frequency of urination) 4. nerve problems (inability to walk on your toes or heels, numbness, loss of bowel or bladder control) 5. any other symptoms that concern you. D. Please call the office at if you have any concerns or questions about your operation or recovery. MANAGING PAIN AFTER SPINAL SURGERY 1. Narcotic medication is intended for short-term use and will be provided for surgical pain. Surgical pain usually lasts for a period of 4-6 weeks. Narcotic medication includes Percocet, Vicodin, Darvocet, Tylenol #3 or Lortab. 2. Longer-term pain is more appropriately treated with non-narcotic medication such as Tylenol ES. 3. Muscle spasm is not appropriately treated with narcotics. Muscle relaxers such as Soma, Flexeril or Skelaxin can be used along with Tylenol ES. 4. Remember that we all live with some "aches and pains". This is not unusual or uncommon after an injury or as we get older. 5. We will provide appropriate medication within the normal guidelines of their prescribed use. We will also be very cautious and aware of potential abuse and extended duration of patients' medication needs. 6. Please allow 2-3 days to process refills. Prescriptions will not be mailed but must be picked up at the office. FOLLOW UP VISIT: Keep your scheduled follow-up appointment. Any questions, please call the office at . Pending Studies at Discharge: No Stand-Alone Forms: [facility], Smoking Cessation Medications and DC Order Prescriptions: New tramadol 50 mg tablet 50 mg PO Q6H PRN (Reason: pain, moderate) Qty: 30 0RF oxycodone 5 mg tablet 5 mg PO Q6H PRN (Reason: pain) Qty: 30 0RF gabapentin 300 mg Capsule 300 mg PO QID Qty: 120 2RF Continued atorvastatin 40 mg Tablet 40 mg PO QAM Qty: 30 0RF atenolol 25 mg Tablet 12.5 mg PO BID Qty: 60 0RF lisinopril 2.5 mg tablet 2.5 mg PO QAM multivitamin Tablet 1 tab PO QAM Probiotic 3 billion cell Capsule 3,000 mmu cells PO QAM meloxicam 7.5 mg tablet 7.5 mg PO QAM Discharge Orders: Discharge Order (Routine); Ordered 03/02/23 Ordered By: Sonu Chase/Other Patient Handouts: Managing Type 2 Diabetes, Diabetes: Meal Planning Admission Data Admit Date/Time: 02/28/23 09:58 Attending Provider: Sonu Valle Admit Provider: Sonu Valle Primary Care Provider: Desirae Rivera
== END 2023-03-02 12:09 | disposition home or self-care (01) ==
LOC: ASU 06:07 → 3E 06:07
DX: Z88.0 Allergy status to penicillin; Z88.8 Allergy status to other drugs, medicaments and biological substances; E66.01 Morbid (severe) obesity due to excess calories; Z79.899 Other long term (current) drug therapy; Z91.013 Allergy to seafood; Z86.16 Personal history of COVID-19; Z88.2 Allergy status to sulfonamides; M48.02 Spinal stenosis, cervical region; M54.12 Radiculopathy, cervical region; Z79.1 Long term (current) use of non-steroidal anti-inflammatories (NSAID); Z68.43 Body mass index [BMI] 50.0-59.9, adult